=== PATIENT | male | born 1950 ===

== ENCOUNTER 2018-09-04 13:21 | Inpatient (IN) ==
--- NOTE | 2018-09-04 13:27 | DR.DIZZY ---
HPI Time seen Time Seen by Provider: 09/04/18 13:27 PCP Primary Care Physician: DR. IRVING HPI Comment HPI Comment: PATIENT IS 68YR OLD WHITE MALE WITH HISTORY OF HYPERTENSION HERE IN ED WITH HISTORY OF FALLING 2 TIMES TODAY. HE SAID HE LAY ON THE FLOOR FOR 2 DAYS. FAMILY MEMBERS SAID HE FELL TODAY. HE IS COMPLAINING OF LEFT HIP PAIN. NO FEVER OR DYSURIA. DENIES HEADACHE. Complaint Chief Complaint Doctor Comments: PATIENT FELL AND WAS ON THE FLOOR FOR 2 DAYS. GENERALIZE WEAKNESS, LEFT HIP PAIN. Chief Complaint:: PT TO ER WITH C/O FALLING TIMES 2 DAYS AGO AND HAVING SAGRARIO SANDERSON, Nurses Notes Reviewed Nurses Notes Review: Yes Source History Provided: Patient Mode of Arrival Mode of Arrival: EMS Timing Onset of Chief Complaint: 09/02/18 Came on: Suddenly Duration Duration: Constant Duration: Days Location of Weakness Weakness Location: Generalized Context Onset: At rest History of: None Stroke Symptoms: Numbness of limbs Severity Severity: Normal activity level Modifying factors Worsens: Change in Position Associated signs and symptoms Associated Signs and Symptoms: Weak PMH PMH Past Medical History: Yes Past Medical History: Hypertension Past Surgical History: Yes Surgical History: Unknown Family History History of Family Medical Conditions: No Social History Does patient currently use any type of tobacco product: No Have you used tobacco products in the last 12 months: No Type of Tobacco Use: None Does any household member use tobacco: No Alcohol Use: None Do you use any recreational Drugs:: No Lives With: Family Lives Where: Home infectious screening In the last 2 months have you had wt loss of >10#?: NO Have you had fever, night sweats or hemotysis?: No Have you traveled outside the country in the last 6 months?: No Isolation: Standard ROS Review of Systems Constitutional: Weakness and Fatigue; negative Chills and Fever Eyes: No Symptoms Reported; negative Eye Pain, Tearing and Discharge ENTM: negative Ear Pain, Nose Discharge, Nose Congestion and Throat Pain Respiratoy: Non-Productive Cough, Short of Breath and Wheezing; negative Hemoptysis Cardiovascular: Edema; negative Chest Pain and Palpitations Gastrointestinal/Abdominal: negative Abdominal Pain, Constipation, Diarrhea, Nausea and Vomiting Genitourinary: negative Dysuria, Frequency and Hematuria Neurological: Weakness and Dizziness; negative Headache and Seizure Musculoskeletal: Back Pain, Joint Pain, Joint Swelling and Muscle Pain Integumentary: Dryness; negative Rash, Bruises and Juandice Hematologic/Lymphatic: Easy Bleeding and Easy Bruising; negative Swollen Glands Endocrine: negative Increased Thirst, Increased Urine and Decreased Appetite Psychiatric: No Symptoms Reported All Other Systems: Reviewed and Negative PE Vital Signs Vitals: Temperature 98.2 F Pulse Rate [Left Radial] 97 Pulse Rate 116 Respiratory Rate 20 Blood Pressure [Right Arm] 93/53 Blood Pressure 135/86 O2 Sat by Pulse Oximetry 99 General Limitations: No Limitations General Appearance: Alert and In Distress; negative In No Apparent Distress Eyes Eye exam: PERRL; negative EOMI, Scleral Icterus and Conjunctival Injection Pupils: Regular, Round: Bilateral and Reactive: Bilateral Sclera/Conjunctival: Normal Inspection: Bilateral ENT ENT Exam: Normal Exam, Normal Oropharynx, Normal External Ear Exam, Mucous Membranes Moist and TM's Normal Bilaterally Neck Neck Exam: Normal Inspection, Full ROM and Trachea Midline; negative Tenderness, Meningismus and Lymphadenopathy Respiratory Respiratory Exam: Normal Lung Sounds Bilat; negative Accessory Muscle Use, Chest Wall Tenderness and Respiratory Distress Respiratory Exam: Bilateral: Wheezing and Bilateral: Rhonchi and Lower: Wheezing and Lower: Rhonchi Cardiovascular Cardiovascular Exam: Regular Rate and Normal Rhythm; negative Systolic Murmur, Diastolic Murmur, Rubs and Gallop Abdominal Exam Abdominal Exam: Normal Inspection, Normal Bowel Sounds and Soft; negative Tenderness, Organomegaly and Mass Rectal Rectal Exam: Deferred Extremeties Extremities Exam: Normal Capillary Refill and Edema; negative Tenderness and Calf Tenderness Back Back Exam: Paraspinal Tenderness; negative Tenderness and Vertebral Tenderness Neurologic Neurological Exam: Alert and Oriented X3; negative CN II-XII Intact and Motor Sensory Deficit Patient Oriented To: Person, Place and Time Speech: Fluid Speech Cranial Nerve Exam: EOM Function (II, III, IV, ): Normal, Facial Sensation (V): Normal, Facial Palsy (VII): Normal, Gag reflex (XI): Normal, Spinal Accessory Function (XI): Normal and Tongue Deviation: Normal Motor Strength - LUE: 5/5 Motor Strength - RUE: 5/5 Motor Strength - LLE: 5/5 Motor Strength - RLE: 5/5 Upper Motor Neuron Exam: Babinski Sign: Normal DTR: brachioradialis (L): 2+, brachioradialis (R): 2+, Patellar (L): 2+ and patellar (R): 2+ Psychiatric Psychiatric Exam: Normal Affect and Normal Mood Skin Skin Exam: Dry MDM Additional Information Obtained Additional Information Obtained From: Family Differential Diagnosis Differential Diagnosis: Anemia, CVA, Dehydration, Dysrhythmia, Electrolyte disorder, Hypoglycemia, Myocardial infarction, Pulmonary embolus, TIA and Central Vertigo COURSE Treatment Treatment: SEE ORDERS. Education/Counseling Education/Counseling: Patient and Family Educated On: Diagnosis ROR Labs Reviewed Laboratory Results Reviewed?: Yes Result Diagrams: 09/05/18 07:54 09/05/18 07:00 Laboratory: 09/04/18 17:24 Urine,Clean Catch Urine Culture - Preliminary WBC 17.5 X10^3/uL (3.6-10.0) H 09/05/18 07:54 RBC 3.30 X10^6/uL (4.7-6.0) L 09/05/18 07:54 Hgb 11.1 g/dL (13.5-18.0) L 09/05/18 07:54 Hct 33.1 % (42.0-54.0) L 09/05/18 07:54 MCV 100.2 fL (80.0-100.0) H 09/05/18 07:54 MCH 33.6 pg (27.0-34.0) 09/05/18 07:54 MCHC 33.5 g/dL (33.0-35.0) 09/05/18 07:54 RDW 13.3 % (11.6-16.5) 09/05/18 07:54 Plt Count 274 X10^3/uL (150.0-450.0) 09/05/18 07:54 Plt Count Comment Adequate (ADEQUATE) 09/05/18 07:54 MPV 7.7 fL (7.4-11.0) 09/05/18 07:54 Neut % (Auto) 92.2 % (42.0-75.0) H 09/05/18 07:54 Lymph % (Auto) 3.4 % (21.0-51.0) L 09/05/18 07:54 Sherman % (Auto) 4.2 % (0.0-13.0) 09/05/18 07:54 Eos % (Auto) 0.1 % (0.9-2.9) L 09/05/18 07:54 Baso % (Auto) 0.1 % (0.2-1.0) L 09/05/18 07:54 Neut # (Auto) 16.1 x10^3/uL (2.2-4.8) H 09/05/18 07:54 Lymph # (Auto) 0.6 X10^3/uL (1.3-2.9) L 09/05/18 07:54 Sherman # (Auto) 0.7 x10^3/uL (0.3-0.8) 09/05/18 07:54 Eos # (Auto) 0.0 x10^3/uL (0.0-0.2) 09/05/18 07:54 Baso # (Auto) 0.0 X10^3/uL (0.0-0.1) 09/05/18 07:54 Absolute Nucleated RBC 0.0 /100WBC 09/05/18 07:54 Total Counted 100 09/05/18 07:54 Neutrophils % (Manual) 93 % (39-76) H 09/05/18 07:54 Lymphocytes % (Manual) 3 % (13-43) L 09/05/18 07:54 Monocytes % (Manual) 4 % (4-9) 09/05/18 07:54 Plt Morphology Comment Normal (NORMAL) 09/05/18 07:54 RBC Morphology Normal (NORMAL) 09/05/18 07:54 Sodium 138 mmol/L (136-145) 09/05/18 07:00 Corrected Sodium TNP 09/05/18 07:00 Potassium 4.8 mmol/L (3.5-5.1) 09/05/18 07:00 Chloride 106 mmol/L (98-107) 09/05/18 07:00 Carbon Dioxide 23.2 mmol/L (21-32) 09/05/18 07:00 BUN 29 mg/dL (7-18) H 09/05/18 07:00 Creatinine 1.80 mg/dL (0.70-1.30) H 09/05/18 07:00 Est GFR (MDRD) Af Amer 49 (>60) L 09/05/18 07:00 Est GFR (MDRD) Non-Af 40 (>60) L 09/05/18 07:00 Glucose 76 mg/dL (65-99) 09/05/18 07:00 Lactic Acid 0.8 mmol/L (0.4-2.0) 09/04/18 16:36 Calcium 8.1 mg/dL (8.5-10.1) L 09/05/18 07:00 Corrected Calcium 10.0 mg/dL (8.5-10.1) 09/05/18 07:00 Magnesium 1.1 mg/dL (1.7-2.9) L 09/05/18 07:00 Total Bilirubin 0.70 mg/dL (0.2-1.0) 09/05/18 07:00 AST 57 Units/L (15-37) H 09/05/18 07:00 ALT 35 Units/L (12-78) 09/05/18 07:00 Alkaline Phosphatase 99 Units/L (46-116) 09/05/18 07:00 Creatine Kinase 321 Units/L (39-308) H 09/05/18 07:00 CK-MB (CK-2) 1.2 ng/mL (0-4.0) 09/05/18 07:00 CK/CKMB % Calc 0.4 % (<4) 09/05/18 07:00 Troponin I < 0.02 ng/mL (0-1.5) 09/05/18 07:00 Total Protein 4.7 g/dL (6.4-8.2) L 09/05/18 07:00 Albumin 1.6 g/dL (3.4-5.0) L 09/05/18 07:00 Globulin 3.1 g/dL (2.5-4.5) 09/05/18 07:00 Albumin/Globulin Ratio 0.5 Ratio (1.1-2.1) L 09/05/18 07:00 Triglycerides 185 mg/dL (0-150) H 09/05/18 07:00 Cholesterol 83 mg/dL (0-200) 09/05/18 07:00 LDL Cholesterol, Calc 37 mg/dL (0-100) 09/05/18 07:00 HDL Cholesterol 9 mg/dL (40-60) L 09/05/18 07:00 Cholesterol/HDL Ratio 9.2 (0.0-5.0) H 09/05/18 07:00 Specimen Type Clean catch urine 09/04/18 17:24 Urine Color Dark yellow (YELLOW) 09/04/18 17:24 Urine Appearance Cloudy (CLEAR) 09/04/18 17:24 Urine pH 6.0 (5.0 - 8.0) 09/04/18 17:24 Ur Specific [place] 1.010 (1.000-1.030) 09/04/18 17:24 Urine Protein 2+ (NEGATIVE) 09/04/18 17:24 Urine Glucose (UA) Negative (NEGATIVE) 09/04/18 17:24 Urine Ketones 2+ (NEGATIVE) 09/04/18 17:24 Urine Occult Blood 5+ (NEGATIVE) 09/04/18 17:24 Urine Nitrite Positive (NEGATIVE) 09/04/18 17:24 Urine Bilirubin Negative (NEGATIVE) 09/04/18 17:24 Urine Urobilinogen 1+ (NORMAL) 09/04/18 17:24 Ur Leukocyte Esterase 2+ (NEGATIVE) 09/04/18 17:24 Urine RBC 3-5 /HPF (NONE SEEN) 09/04/18 17:24 Urine WBC Tntc /HPF (NONE SEEN) 09/04/18 17:24 Ur Squamous Epith Cells Negative /HPF (NEGATIVE) 09/04/18 17:24 Urine Bacteria 4+ /HPF (NEGATIVE) 09/04/18 17:24 Ur Culture Indicated? Yes/culture set up 09/04/18 17:24 XRAY XRAY Interpreted by: Radiologist XRAY Findings: REPORT ON THIS RECORD DISCUSS WITH PATIENT AND EKG Rate: 109 [place]: LAD Rhythm: ST Block: None Hypertrophy: None ST: Nonsp Diagnosis Discharge Problem: UTI (urinary tract infection) with pyuria, Generalized weakness, Acute pain of left hip Leukocytosis Qualifiers: Leukocytosis type: unspecified Qualified Code(s): D72.829 - Elevated white blood cell count, unspecified Fall Qualifiers: Encounter type: initial encounter Qualified Code(s): W19.XXXA - Unspecified fall, initial encounter Instructions Instructions: Steps to Quit Smoking, [id number] Leukocytosis Urinary Tract Infection, Adult, [id number] Weakness Forms: Patient Portal
[2018-09-04] MEDS ORDERED: NS 1000 ML 1,000 ML ONE (13:48)
[2018-09-04] MEDS: NS 1000 ML 1,000 ML IV SCH (13:58)
--- NOTE | 2018-09-04 14:49 | RAD ---
HISTORY: Multiple falls Study: Chest AP portable Comparison: None available Findings: The heart is enlarged. No congestive heart failure is noted. The hernán are normal. The lungs are hypo inflated but clear. There is widening of the upper mediastinum with rightward deviation of the upper trachea. This could be due to thyromegaly however other upper mediastinal masses cannot be excluded. Chest CT with contrast would be of further diagnostic value. The visualized bony thorax appears intact. There is a spinal cord stimulator at the lower thoracic level. IMPRESSION: Moderate cardiomegaly without congestive heart failure Lungs hypo inflated but clear Widened upper mediastinum with rightward tracheal deviation possibly due to thyromegaly however chest CT with contrast should be considered for further evaluation. Reported By:
--- NOTE | 2018-09-04 14:50 | CT ---
HISTORY: Fall Study: CT of the head Comparison: None Technique: Serial axial images were obtained from the skull base to the vertex without infusion of IV contrast. Coronal sagittal reformatted images were also submitted. Findings: No definite evidence of acute intracranial hemorrhage is appreciated. The ventricles, sulci, and cisterns demonstrate an appearance consistent with a mild degree of generalized atrophy. Subtle patchy areas of decreased attenuation within the periventricular, subcortical, and subinsular white matter suggest changes of chronic small vessel ischemic disease. Soft tissue swelling/hematoma are seen overlying the occipital calvarium near the vertex. If symptoms or clinical concern persist recommend continued follow-up for further evaluation. IMPRESSION: No evidence of acute intracranial abnormality is appreciated. Mild generalized atrophy with findings consistent with changes of chronic small vessel ischemic disease. Soft tissue swelling/hematoma overlying the occipital calvarium. Correlate clinically. Reported By:
--- NOTE | 2018-09-04 15:22 | RAD ---
History: Fall Exam: Left hip series Comparison: None Technique: AP pelvis and frog-leg view left hip. Findings: There is mild joint space narrowing in both hips. No fracture or dislocation is seen. The pelvis is intact. Postop changes are seen along the lower lumbar spine with a TENS unit in place inferiorly. The pelvis is intact. IMPRESSION: Mild joint space narrowing in both hips and postop changes along the lower lumbar spine with no acute abnormality seen. Reported By:
[2018-09-04 16:50] LABS: BASOPHILS % (AUTO) 0.3 % (0.2-1.0); EOSINOPHILS % (AUTO) 0.1 % (0.9-2.9); HEMATOCRIT 31.4 % (42.0-54.0); HEMOGLOBIN 10.5 g/dL (13.5-18.0); LYMPHOCYTES # (AUTO) 0.8 X10^3/uL (1.3-2.9); LYMPHOCYTES % (AUTO) 4.6 % (21.0-51.0); MEAN CORPUSCULAR HEMOGLOBIN 33.4 pg (27.0-34.0); MEAN CORPUSCULAR HGB CONC 33.4 g/dL (33.0-35.0); MEAN PLATELET VOLUME 7.3 fL (7.4-11.0); MONOCYTES # (AUTO) 1.1 x10^3/uL (0.3-0.8); MONOCYTES % (AUTO) 6.1 % (0.0-13.0); NEUTROPHILS # (AUTO) 15.8 x10^3/uL (2.2-4.8); NEUTROPHILS % (AUTO) 88.9 % (42.0-75.0); PLATELET COUNT 208 X10^3/uL (150.0-450.0); RED BLOOD COUNT 3.14 X10^6/uL (4.7-6.0); RED CELL DISTRIBUTION WIDTH 12.9 % (11.6-16.5); WHITE BLOOD COUNT 17.8 X10^3/uL (3.6-10.0)
[2018-09-04 17:08] LABS: LACTIC ACID 0.8 mmol/L (0.4-2.0)
[2018-09-04 17:21] LABS: BLOOD UREA NITROGEN 31 mg/dL (7-18); CALCIUM 8.6 mg/dL (8.5-10.1); CARBON DIOXIDE 22.5 mmol/L (21-32); CHLORIDE 103 mmol/L (98-107); SODIUM 136 mmol/L (136-145); TROPONIN I < 0.02 ng/mL (0-1.5); eGFR NON BLACK RACES 43 (>60)
[2018-09-04 17:33] LABS: ALANINE AMINOTRANSFERASE 39 Units/L (12-78); ALBUMIN 1.7 g/dL (3.4-5.0); ALKALINE PHOSPHATASE 108 Units/L (46-116); ASPARTATE AMINO TRANSFERASE 114 Units/L (15-37); COR CA(FOR HYPOALB) 10.4 mg/dL (8.5-10.1); TOTAL PROTEIN 4.7 g/dL (6.4-8.2)
[2018-09-04 17:34] LABS: BILIRUBIN,URINE NEGATIVE (NEGATIVE); BLOOD/HEMOGLOBIN,URINE 5+ (NEGATIVE); GLUCOSE, URINE NEGATIVE (NEGATIVE); KETONES,URINE 2+ (NEGATIVE); LEUKOCYTE ESTERASE ,URINE 2+ (NEGATIVE); NITRITES,URINE POSITIVE (NEGATIVE); PROTEIN,URINE 2+ (NEGATIVE); UROBILINOGEN,URINE 1+ (NORMAL)
[2018-09-04 17:43] LABS: APPEARANCE,URINE CLOUDY (CLEAR); BACTERIA,URINE 4+ /HPF (NEGATIVE); COLOR,URINE DARK YELLOW (YELLOW); SQUAMOUS EPITHELIAL CELL,UR NEGATIVE /HPF (NEGATIVE)
[2018-09-04 17:59] LABS: CKMB % 0.7 % (<4); CREATINE KINASE 1388 Units/L (39-308); CREATINE KINASE MB 9.1 ng/mL (0-4.0)
[2018-09-04] MEDS ORDERED: ROCEPHIN VIAL 1 GRAM ONE (18:14)
[2018-09-04] MEDS ORDERED: ROCEPHIN VIAL 1 GRAM IVP ONE (18:18)
[2018-09-04] MEDS ORDERED: VITAMIN D (1.25MG) PO SCH (19:14)
[2018-09-04] MEDS: DESYREL PO SCH (21:15)
[2018-09-04] MEDS: FLOMAX PO SCH (21:15)
[2018-09-04] MEDS: NEURONTIN CAP 300 MG PO SCH (21:16)
[2018-09-04] MEDS: CELEBREX PO SCH (21:16)
[2018-09-04] MEDS: NICOTINE PATCH TD SCH (21:16)
[2018-09-04] MEDS: ANTIVERT TAB 25 MG PO SCH (21:16)
[2018-09-04] MEDS: CHECK PATCH XX SCH (21:23)
[2018-09-05 01:04] LABS: CKMB % 0.3 % (<4); CREATINE KINASE 592 Units/L (39-308); CREATINE KINASE MB 1.9 ng/mL (0-4.0); TROPONIN I < 0.02 ng/mL (0-1.5)
[2018-09-05] MEDS: NS 1000 ML 1,000 ML IV SCH ×3 (03:12→19:50)
[2018-09-05 07:20] LABS: ALANINE AMINOTRANSFERASE 35 Units/L (12-78); ALBUMIN 1.6 g/dL (3.4-5.0); ALKALINE PHOSPHATASE 99 Units/L (46-116); ASPARTATE AMINO TRANSFERASE 57 Units/L (15-37); BLOOD UREA NITROGEN 29 mg/dL (7-18); CALCIUM 8.1 mg/dL (8.5-10.1); CARBON DIOXIDE 23.2 mmol/L (21-32); CHLORIDE 106 mmol/L (98-107); CHOL/HDL RATIO 9.2 (0.0-5.0); CHOLESTEROL 83 mg/dL (0-200); HDL CHOLESTEROL 9 mg/dL (40-60); MAGNESIUM 1.1 mg/dL (1.7-2.9); SODIUM 138 mmol/L (136-145); TOTAL PROTEIN 4.7 g/dL (6.4-8.2); TRIGLYCERIDES 185 mg/dL (0-150); eGFR NON BLACK RACES 40 (>60)
[2018-09-05 07:50] LABS: CKMB % 0.4 % (<4); CREATINE KINASE 321 Units/L (39-308); CREATINE KINASE MB 1.2 ng/mL (0-4.0); TROPONIN I < 0.02 ng/mL (0-1.5)
[2018-09-05 08:01] LABS: BASOPHILS % (AUTO) 0.1 % (0.2-1.0); EOSINOPHILS % (AUTO) 0.1 % (0.9-2.9); HEMATOCRIT 33.1 % (42.0-54.0); HEMOGLOBIN 11.1 g/dL (13.5-18.0); LYMPHOCYTES # (AUTO) 0.6 X10^3/uL (1.3-2.9); LYMPHOCYTES % (AUTO) 3.4 % (21.0-51.0); MEAN CORPUSCULAR HEMOGLOBIN 33.6 pg (27.0-34.0); MEAN CORPUSCULAR HGB CONC 33.5 g/dL (33.0-35.0); MEAN CORPUSCULAR VOLUME 100.2 fL (80.0-100.0); MEAN PLATELET VOLUME 7.7 fL (7.4-11.0); MONOCYTES # (AUTO) 0.7 x10^3/uL (0.3-0.8); MONOCYTES % (AUTO) 4.2 % (0.0-13.0); NEUTROPHILS # (AUTO) 16.1 x10^3/uL (2.2-4.8); NEUTROPHILS % (AUTO) 92.2 % (42.0-75.0); PLATELET COUNT 274 X10^3/uL (150.0-450.0); RED CELL DISTRIBUTION WIDTH 13.3 % (11.6-16.5); WHITE BLOOD COUNT 17.5 X10^3/uL (3.6-10.0)
[2018-09-05 08:19] LABS: PLATELET MORPHOLOGY COMMENT NORMAL (NORMAL)
[2018-09-05] MEDS: CHECK PATCH XX SCH ×2 (08:33→21:42)
[2018-09-05] MEDS: NEURONTIN CAP 300 MG PO SCH ×2 (08:33→21:41)
[2018-09-05] MEDS: SINGULAIR TAB 10 MG PO SCH (08:34)
[2018-09-05] MEDS: CELEBREX PO SCH ×2 (08:34→21:41)
[2018-09-05] MEDS: NICOTINE PATCH TD SCH (08:34)
[2018-09-05] MEDS: MAG-OX TAB PO SCH (08:34)
[2018-09-05] MEDS: PriLOSEC PO SCH (08:34)
[2018-09-05] MEDS: CYMBALTA PO SCH (08:37)
[2018-09-05] MEDS ORDERED: PHARMACY CONSULT - DOSE _____ XX SCH (09:00)
[2018-09-05] MEDS ORDERED: ROCEPHIN VIAL 1 GRAM IVP SCH (09:00)
[2018-09-05] MEDS: CIPRO IV 400 MG PREMIX* 400 MG/200 ML IV.SOLN. IV SCH ×2 (11:09→21:42)
[2018-09-05] MEDS ORDERED: NS 100 ML IV + SPIKE MINIBAG* 100 ML ONE (11:31)
[2018-09-05] MEDS: LOVENOX INJ 40 MG SYR SC SCH (11:35)
[2018-09-05] MEDS: FORTAZ or TAZICEF VIAL INJ IVP SCH ×3 (11:36→21:41)
[2018-09-05 13:51] VITALS: BMI 33.9
--- NOTE | 2018-09-05 15:47 | US ---
Ultrasound scrotum Indication: Testicular pain and swelling Technique: Dynamic grayscale and Doppler imaging through the scrotum Comparison: No recent similar prior. Findings: The right testis measures 3.8 x 2.6 x 2.9 cm. Epididymis measures 1 cm maximally. No hydrocele identified. Color Doppler flow is symmetric to the testicles. There is left small hydrocele with the left testis measuring 3.1 x 2.2 x 2.5 cm. The left epididymis measures 9 mm maximally. In the posterior inferior left testis there is hypoechoic area, within the testicle itself measuring 6 x 5 x 5 mm. Extratesticular hypodense area is also noted, with peripheral flow seen. This area measures 4.2 x 1.0 x 0.5 cm. Impression: 1. Intra testicular hypoechoic lesion. Testicular cancer should be excluded. Urology follow-up will be needed. 2. Extratesticular hypoechoic area could represent local regional spread of the primary lesion. Lymphoma is possible as well. Infectious etiologies not entirely excluded. Urology follow-up recommended. Reported By:
--- NOTE | 2018-09-05 16:51 | DR.H&P ---
H&P - History & Physical for Day of: H&P Date: 09/04/18 - Chief Complaint Chief Complaint: WEAKNESS, DIZZINESS, FALLS, LEFT HIP PAIN - History of Present Illness History of Present Illness: IS A 68 YEAR OLD PATIENT OF OURS WHO PRESENTED TO THE ER WITH COMPLAINTS OF FREQUENT FALLS, GENERALIZED WEAKNESS, DIZZINESS, AND LEFT HIP PAIN. PATIENT REPORTED THAT HE FELL AT HOME AND HAS BEEN ABLE TO GET ANY HELP FOR THE PAST TWO DAYS. HE HAS A MEDICAL HISTORY OF HYPERTENSION. ON ARRIVAL, VITALS WERE 98.0-97-18-99%-98/67. LABS WERE OBTAINED. ABNORMAL LAB VALUES INCLUDE THE FOLLOWING: WBC 17.8, RBC 3.14, HGB 10.5, HCT 31.4, BUN 31, CREATININE 1.70, AST 114, CREATINE KINASE 1388, CK-MB 9.1, TOTAL PROTEIN 4.7, ALBUMIN 1.7. A URINALYSIS WAS OBTAINED AND REVEALED: WBC TTC, RBC 3-5, LEUKOCYTES 1+, BACTERIA 4+, NITRITE POSITIVE. URINE AND BLOOD CULTURES PENDING. A CHEST XRAY WAS OBTAINED AND REVEALED: Moderate cardiomegaly without congestive heart failure. Lungs hypo inflated but clear. Widened upper mediastinum with rightward tracheal deviation possibly due to thyromegaly however chest CT with contrast should be considered for further evaluation. A LEFT HIP XRAY WAS OBTAINED AND REVEALED: Mild joint space narrowing in both hips and postop changes along the lower lumbar spine with no acute abnormality seen. A BRAIN CT WAS OBTAINED AND REVEALED: No evidence of acute intracranial abnormality is appreciated. Mild generalized atrophy with findings consistent with changes of chronic small vessel ischemic disease. Soft tissue swelling/hematoma overlying the occipital calvarium. Correlate clinically. HE WAS ADMITTED TO THE ER FOR FURTHER EVALUATION AND TREATMENT OF UTI, LEUKOCYTOSIS, GENERALIZED WEAKNESS, AND LEFT HIP PAIN. HE WAS STARTED ON ROCEPHIN 1G IV DAILY, NORMAL SALINE AT 100ML/HR, AND HOME MEDICATIONS WERE RESUMED. WE PLAN TO FOLLOW UP WITH AM LABS AND CONTINUE TO MONITOR. - Past Medical History Past Medical History: Hypertension - Past Surgical History Surgical History: Unknown - Social History Does patient currently use any type of tobacco product: No Have you used tobacco products in the last 12 months: No Type of Tobacco Use: None Does any household member use tobacco: No Alcohol Use: None Drug Use: Marijuana - Medications Home Medications: No Known Drug Allergies Allergy (Verified 09/04/18 13:24) CONTINUE taking the following medications celecoxib 200 mg PO BID 09/04/18 [History] duloxetine 60 mg PO DAILY 09/04/18 [History] ergocalciferol (vitamin D2) 50,000 unit PO WEEKLY 09/04/18 [History] furosemide 40 mg PO PRN PRN 09/04/18 [History] gabapentin 300 mg PO BID 09/04/18 [History] hydrocodone-acetaminophen 1 tab PO QID PRN 09/04/18 [History] lisinopril 20 mg PO DAILY 09/04/18 [History] magnesium 400 mg PO DAILY 09/04/18 [History] meclizine 25 mg PO HS 09/04/18 [History] montelukast 10 mg PO DAILY 09/04/18 [History] omeprazole 40 mg PO DAILY 09/04/18 [History] oxycodone 30 mg PO TID PRN 09/04/18 [History] phentermine [Adipex-P] 37.5 mg PO DAILY 09/04/18 [History] potassium chloride 20 meq PO DAILY 09/04/18 [History] tamsulosin 0.4 mg PO HS 09/04/18 [History] trazodone 200 mg PO HS 09/04/18 [History] triamterene-hydrochlorothiazid 1 cap PO DAILY 09/04/18 [History] - Review of Systems Constitutional: Weakness Eyes: No Symptoms Reported ENT: No Symptoms Reported Respiratory: No Symptoms Reported Cardiovascular: No Symptoms Reported Gastrointestinal: Abdominal Pain Genitourinary: Other (PENILE DISCHARGE) Musculoskeletal: See HPI, Other (LEFT HIP PAIN ) Skin: No Symptoms Reported Neurological: Weakness - Physical Exam Vital Signs: Temperature 98 F Pulse Rate [Left Radial] 102 Pulse Rate 116 Respiratory Rate 30 Blood Pressure [Right Arm] 80/56 Blood Pressure 135/86 O2 Sat by Pulse Oximetry 96 Oriented: Normal Eyes: Normal Ear: Normal Nose: Normal Throat: Normal Respiratory: Diminished Throughout Cardiovascular: Normal. negative: S3, S4, Murmur : Normal Auscultation: Bowel Sounds: Normal Palpation: Normal Tenderness: Suprapubic, Mild. negative: Rebound, Guarding, Rigidity Skin: Normal Musculoskeletal: Left, Hip, Tender Psychiatric: Normal Mood Description: Calm Affect: Normal Speech Pattern: Clear - Assessment/Plan (1) UTI (urinary tract infection) with pyuria Status: Acute Plan: ADMIT, IV FLUIDS, IV ROCEPHIN, CONTINUE TO MONITOR (2) Leukocytosis Qualifiers: Leukocytosis type: unspecified Qualified Code(s): D72.829 - Elevated white blood cell count, unspecified Status: Acute (3) Generalized weakness Status: Acute (4) Acute pain of left hip Status: Resolved - Allergies Allergies/Adverse Reactions: Allergies Allergy/AdvReac Type Severity Reaction Status Date / Time No Known Drug Allergies Allergy Verified 09/04/18 13:24
[2018-09-05] MEDS: MEDROL DOSEPAK 4 MG PER TAB PO SCH ×2 (17:46→21:42)
[2018-09-05] MEDS: ROXICODONE TAB 15 MG PO SCH ×2 (17:47→22:22)
[2018-09-05] MEDS: COLACE CAP 100 MG PO SCH (21:41)
[2018-09-05] MEDS: DESYREL PO SCH (21:41)
[2018-09-05] MEDS: ANTIVERT TAB 25 MG PO SCH (21:41)
[2018-09-05] MEDS: FLOMAX PO SCH (21:41)
[2018-09-05] MEDS: MILK OF MAGNESIA PO SCH (21:43)
[2018-09-06] MEDS: NS 1000 ML 1,000 ML IV SCH ×3 (05:48→18:17)
[2018-09-06] MEDS: FORTAZ or TAZICEF VIAL INJ IVP SCH ×3 (05:49→20:59)
[2018-09-06] MEDS: ROXICODONE TAB 15 MG PO SCH ×4 (05:49→20:59)
[2018-09-06 05:52] LABS: BASOPHILS % (AUTO) 0.1 % (0.2-1.0); HEMOGLOBIN 9.9 g/dL (13.5-18.0); LYMPHOCYTES # (AUTO) 0.3 X10^3/uL (1.3-2.9); LYMPHOCYTES % (AUTO) 2.2 % (21.0-51.0); MEAN CORPUSCULAR HEMOGLOBIN 33.8 pg (27.0-34.0); MEAN CORPUSCULAR VOLUME 102.7 fL (80.0-100.0); MEAN PLATELET VOLUME 7.8 fL (7.4-11.0); MONOCYTES # (AUTO) 0.4 x10^3/uL (0.3-0.8); MONOCYTES % (AUTO) 2.6 % (0.0-13.0); NEUTROPHILS # (AUTO) 13.6 x10^3/uL (2.2-4.8); NEUTROPHILS % (AUTO) 95.1 % (42.0-75.0); PLATELET COUNT 285 X10^3/uL (150.0-450.0); RED BLOOD COUNT 2.92 X10^6/uL (4.7-6.0); RED CELL DISTRIBUTION WIDTH 13.4 % (11.6-16.5); WHITE BLOOD COUNT 14.3 X10^3/uL (3.6-10.0)
[2018-09-06 06:02] LABS: ALBUMIN 1.6 g/dL (3.4-5.0); CARBON DIOXIDE 24.5 mmol/L (21-32); COR CA(FOR HYPOALB) 9.9 mg/dL (8.5-10.1); CREATININE 1.78 mg/dL (0.70-1.30); TOTAL PROTEIN 4.8 g/dL (6.4-8.2)
[2018-09-06 06:09] LABS: TOTAL PSA 0.81 ng/mL (0.13-4.0)
[2018-09-06 06:35] LABS: PLATELET MORPHOLOGY COMMENT NORMAL (NORMAL)
--- NOTE | 2018-09-06 08:16 | PCM.PROG ---
Progress Note - Progress Note for Day of Date of Exam: 09/05/18 - Subjective Subjective: WAS ADMITTED FOR UTI, LEUKOCYTOSIS, GENERALIZED WEAKNESS, AND LEFT HIP PAIN. TODAY, HE IS ALERT AND ORIENTED, SITTING UP IN CHAIR ON MORNING ROUNDS. HE IS NOTED WITH COMPLAINTS OF LOWER ABDOMINAL PAIN AND SCROTAL PAIN. HE REPORTS THAT HE HAS A PURULENT DISCHARGE FROM PENIS. ON EXAMINATION, HEART IS REGULAR IN RATE AND RHYTHM. BILATERAL LUNGS ARE NOTED WITH DIMINISHED LUNG SOUNDS THROUGHOUT. ABDOMEN IS ROUND, SOFT, AND NOTED WITH MILD SUPRAPUBIC TENDERNESS. HIS VITALS THIS MORNING ARE 99.8-107-20-92%RA-119/62. LABS WERE OBTAINED. ABNORMAL LAB VALUES INCLUDE THE FOLLOWING: WBC 17.5, RBC 3.30, HGB 11.1, HCT 33.1, BUN 29, CREATININE 1.80, CALCIUM 8.1, MAGNESIUM 1.1, AST 57, TOT AL PROTEIN 4.7, ALBUMIN 1.6, CREATINE KINASE 321, TRIGLYCERIDES 185, HDL 9. URINE AND BLOOD CULTURES ARE PENDING. TODAY, WE WILL OBTAIN A TESTICULAR ULTRASOUND. WE WILL DISCONTINUE THE ROCEPHIN AND START FORTAZ AND CIPRO. OTHERWISE, WE WILL FOLLOW UP WITH AM LABS AND CONTINUE TO MONITOR. - Past Medical Family Social History Past Med/Fam/Surg Hx: No changes since H&P Allergies: Allergies No Known Drug Allergies Allergy (Verified 09/04/18 13:24) - Review of Systems ROS: No change since H&P - Vital Signs and I&O's Vital Signs: Temperature 97.7 F Pulse Rate [Left Radial] 71 Pulse Rate 116 Respiratory Rate 18 Blood Pressure [Right Arm] 101/67 Blood Pressure 135/86 O2 Sat by Pulse Oximetry 95 Intake and Output: Intake & Output 09/03/18 09/04/18 09/05/18 09/06/18 11:59 11:59 11:59 11:59 Intake Total 140 / 140 2110 / 2110 Output Total 425 / 425 325 / 325 Balance -285 / -285 1785 / 1785 - Physical Exam Oriented: Normal Eyes: Normal Ear: Normal Nose: Normal Throat: Normal Cardiovascular: Normal. negative: S3, S4, Murmur : Other (SCROTAL PAIN, PENILE DISCHARGE) Auscultation: Bowel Sounds: Normal Palpation: Normal Tenderness: Suprapubic, Mild. negative: Rebound, Guarding, Rigidity Skin: Normal Musculoskeletal: Left, Hip, Tender Psychiatric: Normal Mood Description: Calm Affect: Normal Speech Pattern: Clear, Appropriate - Laboratory and Diagnostics Result Diagrams: 09/06/18 05:15 09/06/18 05:15 Labs: 09/04/18 17:24 Urine,Clean Catch Urine Culture - Preliminary Laboratory WBC 14.3 X10^3/uL (3.6-10.0) H 09/06/18 05:15 RBC 2.92 X10^6/uL (4.7-6.0) L 09/06/18 05:15 Hgb 9.9 g/dL (13.5-18.0) L 09/06/18 05:15 Hct 30.0 % (42.0-54.0) L 09/06/18 05:15 MCV 102.7 fL (80.0-100.0) H 09/06/18 05:15 MCH 33.8 pg (27.0-34.0) 09/06/18 05:15 MCHC 33.0 g/dL (33.0-35.0) 09/06/18 05:15 RDW 13.4 % (11.6-16.5) 09/06/18 05:15 Plt Count 285 X10^3/uL (150.0-450.0) 09/06/18 05:15 Plt Count Comment Adequate (ADEQUATE) 09/06/18 05:15 MPV 7.8 fL (7.4-11.0) 09/06/18 05:15 Neut % (Auto) 95.1 % (42.0-75.0) H 09/06/18 05:15 Lymph % (Auto) 2.2 % (21.0-51.0) L 09/06/18 05:15 [place] % (Auto) 2.6 % (0.0-13.0) 09/06/18 05:15 Eos % (Auto) 0.0 % (0.9-2.9) L 09/06/18 05:15 Baso % (Auto) 0.1 % (0.2-1.0) L 09/06/18 05:15 Neut # (Auto) 13.6 x10^3/uL (2.2-4.8) H 09/06/18 05:15 Lymph # (Auto) 0.3 X10^3/uL (1.3-2.9) L 09/06/18 05:15 [place] # (Auto) 0.4 x10^3/uL (0.3-0.8) 09/06/18 05:15 Eos # (Auto) 0.0 x10^3/uL (0.0-0.2) 09/06/18 05:15 Baso # (Auto) 0.0 X10^3/uL (0.0-0.1) 09/06/18 05:15 Absolute Nucleated RBC 0.0 /100WBC 09/06/18 05:15 Total Counted 100 09/06/18 05:15 Neutrophils % (Manual) 97 % (39-76) H 09/06/18 05:15 Lymphocytes % (Manual) 2 % (13-43) L 09/06/18 05:15 Monocytes % (Manual) 1 % (4-9) L 09/06/18 05:15 Plt Morphology Comment Normal (NORMAL) 09/06/18 05:15 RBC Morphology Normal (NORMAL) 09/06/18 05:15 Sodium 137 mmol/L (136-145) 09/06/18 05:15 Corrected Sodium 138 mmol/L (136-145) 09/06/18 05:15 Potassium 4.5 mmol/L (3.5-5.1) 09/06/18 05:15 Chloride 104 mmol/L (98-107) 09/06/18 05:15 Carbon Dioxide 24.5 mmol/L (21-32) 09/06/18 05:15 BUN 30 mg/dL (7-18) H 09/06/18 05:15 Creatinine 1.78 mg/dL (0.70-1.30) H 09/06/18 05:15 Est GFR (MDRD) Af Amer 49 (>60) L 09/06/18 05:15 Est GFR (MDRD) Non-Af 41 (>60) L 09/06/18 05:15 Glucose 132 mg/dL (65-99) H 09/06/18 05:15 Lactic Acid 0.8 mmol/L (0.4-2.0) 09/04/18 16:36 Calcium 8.0 mg/dL (8.5-10.1) L 09/06/18 05:15 Corrected Calcium 9.9 mg/dL (8.5-10.1) 09/06/18 05:15 Magnesium 1.1 mg/dL (1.7-2.9) L 09/05/18 07:00 Total Bilirubin 0.30 mg/dL (0.2-1.0) 09/06/18 05:15 AST 31 Units/L (15-37) 09/06/18 05:15 ALT 32 Units/L (12-78) 09/06/18 05:15 Alkaline Phosphatase 95 Units/L (46-116) 09/06/18 05:15 Creatine Kinase 321 Units/L (39-308) H 09/05/18 07:00 CK-MB (CK-2) 1.2 ng/mL (0-4.0) 09/05/18 07:00 CK/CKMB % Calc 0.4 % (<4) 09/05/18 07:00 Troponin I < 0.02 ng/mL (0-1.5) 09/05/18 07:00 Total Protein 4.8 g/dL (6.4-8.2) L 09/06/18 05:15 Albumin 1.6 g/dL (3.4-5.0) L 09/06/18 05:15 Globulin 3.2 g/dL (2.5-4.5) 09/06/18 05:15 Albumin/Globulin Ratio 0.5 Ratio (1.1-2.1) L 09/06/18 05:15 Triglycerides 185 mg/dL (0-150) H 09/05/18 07:00 Cholesterol 83 mg/dL (0-200) 09/05/18 07:00 LDL Cholesterol, Calc 37 mg/dL (0-100) 09/05/18 07:00 HDL Cholesterol 9 mg/dL (40-60) L 09/05/18 07:00 Cholesterol/HDL Ratio 9.2 (0.0-5.0) H 09/05/18 07:00 Total PSA 0.81 ng/mL (0.13-4.0) 09/06/18 05:15 Specimen Type Clean catch urine 09/04/18 17:24 Urine Color Dark yellow (YELLOW) 09/04/18 17:24 Urine Appearance Cloudy (CLEAR) 09/04/18 17:24 Urine pH 6.0 (5.0 - 8.0) 09/04/18 17:24 Ur Specific [place] 1.010 (1.000-1.030) 09/04/18 17:24 Urine Protein 2+ (NEGATIVE) 09/04/18 17:24 Urine Glucose (UA) Negative (NEGATIVE) 09/04/18 17:24 Urine Ketones 2+ (NEGATIVE) 09/04/18 17:24 Urine Occult Blood 5+ (NEGATIVE) 09/04/18 17:24 Urine Nitrite Positive (NEGATIVE) 09/04/18 17:24 Urine Bilirubin Negative (NEGATIVE) 09/04/18 17:24 Urine Urobilinogen 1+ (NORMAL) 09/04/18 17:24 Ur Leukocyte Esterase 2+ (NEGATIVE) 09/04/18 17:24 Urine RBC 3-5 /HPF (NONE SEEN) 09/04/18 17:24 Urine WBC Tntc /HPF (NONE SEEN) 09/04/18 17:24 Ur Squamous Epith Cells Negative /HPF (NEGATIVE) 09/04/18 17:24 Urine Bacteria 4+ /HPF (NEGATIVE) 09/04/18 17:24 Ur Culture Indicated? Yes/culture set up 09/04/18 17:24 - Plan (1) UTI (urinary tract infection) with pyuria Status: Acute Plan: ADMIT, IV FLUIDS, IV FORTAZ, IV CIPRO, CONTINUE TO MONITOR (2) Leukocytosis Status: Acute Qualifiers: Leukocytosis type: unspecified Qualified Code(s): D72.829 - Elevated white blood cell count, unspecified (3) Generalized weakness Status: Acute (4) Acute pain of left hip Status: Resolved (5) Testicular/scrotal pain Status: Acute Plan: OBTAIN TESTICULAR ULTRASOUND
[2018-09-06] MEDS: PriLOSEC PO SCH (08:46)
[2018-09-06] MEDS: CELEBREX PO SCH ×2 (08:47→21:11)
[2018-09-06] MEDS: NICOTINE PATCH TD SCH (08:47)
[2018-09-06] MEDS: SINGULAIR TAB 10 MG PO SCH (08:47)
[2018-09-06] MEDS: MAG-OX TAB PO SCH ×2 (08:47→22:00)
[2018-09-06] MEDS: NEURONTIN CAP 300 MG PO SCH ×2 (08:47→20:57)
[2018-09-06] MEDS: CIPRO IV 400 MG PREMIX* 400 MG/200 ML IV.SOLN. IV SCH ×2 (08:48→20:58)
[2018-09-06] MEDS: CHECK PATCH XX SCH ×2 (08:48→21:11)
[2018-09-06] MEDS: LOVENOX INJ 40 MG SYR SC SCH (08:49)
[2018-09-06] MEDS: MEDROL DOSEPAK 4 MG PER TAB PO SCH ×2 (08:49→20:57)
[2018-09-06] MEDS: MILK OF MAGNESIA PO SCH ×2 (08:50→20:57)
[2018-09-06] MEDS: CYMBALTA PO SCH (08:53)
--- NOTE | 2018-09-06 20:32 | PCM.PROG ---
Progress Note - Progress Note for Day of Date of Exam: 09/06/18 - Subjective Subjective: WAS ADMITTED FOR UTI, LEUKOCYTOSIS, GENERALIZED WEAKNESS, AND LEFT HIP PAIN. TODAY, HE IS ALERT AND ORIENTED, LYING IN BED ON MORNING ROUNDS. HE CONTINUES WITH COMPLAINTS OF LOWER ABDOMINAL PAIN AND SCROTAL PAIN. HE ALSO CONTINUES WITH PURULENT DISCHARGE FROM PENIS. ON EXAMINATION, HEART IS REGULAR IN RATE AND RHYTHM. BILATERAL LUNGS ARE NOTED WITH DIMINISHED LUNG SOUNDS THROUGHOUT. ABDOMEN IS ROUND, SOFT, AND NOTED WITH MILD SUPRAPUBIC TENDERNESS. HIS VITALS THIS MORNING ARE 97.8-80-20-93%RA-99/63. LABS WERE OBTAINED. ABNORMAL LAB VALUES INCLUDE THE FOLLOWING: WBC 14.3, RBC 2.92, HGB 9.9, HCT 30.0, BUN 30, CREATININE 1.78, GLUCOSE 132, CALCIUM 8.0, MAGNESIUM 1.2, TOTAL PROTEIN 4.8, ALUBMIN 1.6. URINE AND BLOOD CULTURES ARE PENDING. WE OBTAINED A TESTICULAR ULTRASOUND YESTERDAY. IT REVEALED: Intra testicular hypoechoic lesion. Testicular cancer should be excluded. Urology follow-up will be needed. Extratesticular hypoechoic area could represent local regional spread of the primary lesion. Lymphoma is possible as well. Infectious etiologies not entirely excluded. Urology follow-up recommended. HE IS CURRENTLY RECEIVING IV ANTIBIOTICS AND IV FLUIDS. TODAY, WE WILL OBTAIN A BETA HCG LEVEL AND A ALPHA FETOPROTEIN LEVEL. OTHERWISE, WE WILL FOLLOW UP WITH AM LABS AND CONTINUE TO MONITOR. - Past Medical Family Social History Past Med/Fam/Surg Hx: No changes since H&P Allergies: Allergies No Known Drug Allergies Allergy (Verified 09/04/18 13:24) - Review of Systems ROS: No change since H&P - Vital Signs and I&O's Vital Signs: Temperature 98.5 F Pulse Rate [Left Radial] 82 Pulse Rate 116 Respiratory Rate 18 Blood Pressure [Right Arm] 110/70 Blood Pressure 135/86 O2 Sat by Pulse Oximetry 97 Intake and Output: Intake & Output 09/04/18 09/05/18 09/06/18 09/07/18 11:59 11:59 11:59 11:59 Intake Total 140 / 140 2110 / 2110 2040 / 2040 Output Total 425 / 425 325 / 325 800 / 800 Balance -285 / -285 1785 / 1785 1240 / 1240 - Physical Exam Oriented: Normal Eyes: Normal Ear: Normal Nose: Normal Throat: Normal Respiratory: Generalized, Diminished Cardiovascular: Normal. negative: S3, S4, Murmur : Other (SCROTAL PAIN, PENILE DISCHARGE) Auscultation: Bowel Sounds: Normal Palpation: Normal Tenderness: Suprapubic, Mild. negative: Rebound, Guarding, Rigidity Skin: Normal Musculoskeletal: Left, Hip, Tender Psychiatric: Normal Mood Description: Calm Affect: Normal Speech Pattern: Clear, Appropriate - Laboratory and Diagnostics Result Diagrams: 09/06/18 05:15 09/06/18 05:15 Labs: 09/04/18 16:36 Blood Blood Culture - Preliminary 09/04/18 17:24 Urine,Clean Catch Urine Culture - Preliminary Laboratory WBC 14.3 X10^3/uL (3.6-10.0) H 09/06/18 05:15 RBC 2.92 X10^6/uL (4.7-6.0) L 09/06/18 05:15 Hgb 9.9 g/dL (13.5-18.0) L 09/06/18 05:15 Hct 30.0 % (42.0-54.0) L 09/06/18 05:15 MCV 102.7 fL (80.0-100.0) H 09/06/18 05:15 MCH 33.8 pg (27.0-34.0) 09/06/18 05:15 MCHC 33.0 g/dL (33.0-35.0) 09/06/18 05:15 RDW 13.4 % (11.6-16.5) 09/06/18 05:15 Plt Count 285 X10^3/uL (150.0-450.0) 09/06/18 05:15 Plt Count Comment Adequate (ADEQUATE) 09/06/18 05:15 MPV 7.8 fL (7.4-11.0) 09/06/18 05:15 Neut % (Auto) 95.1 % (42.0-75.0) H 09/06/18 05:15 Lymph % (Auto) 2.2 % (21.0-51.0) L 09/06/18 05:15 [place] % (Auto) 2.6 % (0.0-13.0) 09/06/18 05:15 Eos % (Auto) 0.0 % (0.9-2.9) L 09/06/18 05:15 Baso % (Auto) 0.1 % (0.2-1.0) L 09/06/18 05:15 Neut # (Auto) 13.6 x10^3/uL (2.2-4.8) H 09/06/18 05:15 Lymph # (Auto) 0.3 X10^3/uL (1.3-2.9) L 09/06/18 05:15 [place] # (Auto) 0.4 x10^3/uL (0.3-0.8) 09/06/18 05:15 Eos # (Auto) 0.0 x10^3/uL (0.0-0.2) 09/06/18 05:15 Baso # (Auto) 0.0 X10^3/uL (0.0-0.1) 09/06/18 05:15 Absolute Nucleated RBC 0.0 /100WBC 09/06/18 05:15 Total Counted 100 09/06/18 05:15 Neutrophils % (Manual) 97 % (39-76) H 09/06/18 05:15 Lymphocytes % (Manual) 2 % (13-43) L 09/06/18 05:15 Monocytes % (Manual) 1 % (4-9) L 09/06/18 05:15 Plt Morphology Comment Normal (NORMAL) 09/06/18 05:15 RBC Morphology Normal (NORMAL) 09/06/18 05:15 Sodium 137 mmol/L (136-145) 09/06/18 05:15 Corrected Sodium 138 mmol/L (136-145) 09/06/18 05:15 Potassium 4.5 mmol/L (3.5-5.1) 09/06/18 05:15 Chloride 104 mmol/L (98-107) 09/06/18 05:15 Carbon Dioxide 24.5 mmol/L (21-32) 09/06/18 05:15 BUN 30 mg/dL (7-18) H 09/06/18 05:15 Creatinine 1.78 mg/dL (0.70-1.30) H 09/06/18 05:15 Est GFR (MDRD) Af Amer 49 (>60) L 09/06/18 05:15 Est GFR (MDRD) Non-Af 41 (>60) L 09/06/18 05:15 Glucose 132 mg/dL (65-99) H 09/06/18 05:15 Lactic Acid 0.8 mmol/L (0.4-2.0) 09/04/18 16:36 Calcium 8.0 mg/dL (8.5-10.1) L 09/06/18 05:15 Corrected Calcium 9.9 mg/dL (8.5-10.1) 09/06/18 05:15 Magnesium 1.2 mg/dL (1.7-2.9) L 09/06/18 05:15 Total Bilirubin 0.30 mg/dL (0.2-1.0) 09/06/18 05:15 AST 31 Units/L (15-37) 09/06/18 05:15 ALT 32 Units/L (12-78) 09/06/18 05:15 Alkaline Phosphatase 95 Units/L (46-116) 09/06/18 05:15 Creatine Kinase 321 Units/L (39-308) H 09/05/18 07:00 CK-MB (CK-2) 1.2 ng/mL (0-4.0) 09/05/18 07:00 CK/CKMB % Calc 0.4 % (<4) 09/05/18 07:00 Troponin I < 0.02 ng/mL (0-1.5) 09/05/18 07:00 Total Protein 4.8 g/dL (6.4-8.2) L 09/06/18 05:15 Albumin 1.6 g/dL (3.4-5.0) L 09/06/18 05:15 Globulin 3.2 g/dL (2.5-4.5) 09/06/18 05:15 Albumin/Globulin Ratio 0.5 Ratio (1.1-2.1) L 09/06/18 05:15 Triglycerides 185 mg/dL (0-150) H 09/05/18 07:00 Cholesterol 83 mg/dL (0-200) 09/05/18 07:00 LDL Cholesterol, Calc 37 mg/dL (0-100) 09/05/18 07:00 HDL Cholesterol 9 mg/dL (40-60) L 09/05/18 07:00 Cholesterol/HDL Ratio 9.2 (0.0-5.0) H 09/05/18 07:00 Total PSA 0.81 ng/mL (0.13-4.0) 09/06/18 05:15 HCG, Quant < 1 mIU/mL 09/06/18 05:15 Specimen Type Clean catch urine 09/04/18 17:24 Urine Color Dark yellow (YELLOW) 09/04/18 17:24 Urine Appearance Cloudy (CLEAR) 09/04/18 17:24 Urine pH 6.0 (5.0 - 8.0) 09/04/18 17:24 Ur Specific [place] 1.010 (1.000-1.030) 09/04/18 17:24 Urine Protein 2+ (NEGATIVE) 09/04/18 17:24 Urine Glucose (UA) Negative (NEGATIVE) 09/04/18 17:24 Urine Ketones 2+ (NEGATIVE) 09/04/18 17:24 Urine Occult Blood 5+ (NEGATIVE) 09/04/18 17:24 Urine Nitrite Positive (NEGATIVE) 09/04/18 17:24 Urine Bilirubin Negative (NEGATIVE) 09/04/18 17:24 Urine Urobilinogen 1+ (NORMAL) 09/04/18 17:24 Ur Leukocyte Esterase 2+ (NEGATIVE) 09/04/18 17:24 Urine RBC 3-5 /HPF (NONE SEEN) 09/04/18 17:24 Urine WBC Tntc /HPF (NONE SEEN) 09/04/18 17:24 Ur Squamous Epith Cells Negative /HPF (NEGATIVE) 09/04/18 17:24 Urine Bacteria 4+ /HPF (NEGATIVE) 09/04/18 17:24 Ur Culture Indicated? Yes/culture set up 09/04/18 17:24 - Plan (1) UTI (urinary tract infection) with pyuria Status: Acute Plan: ADMIT, IV FLUIDS, IV FORTAZ, IV CIPRO, CONTINUE TO MONITOR (2) Leukocytosis Status: Acute Qualifiers: Leukocytosis type: unspecified Qualified Code(s): D72.829 - Elevated white blood cell count, unspecified (3) Generalized weakness Status: Acute (4) Acute pain of left hip Status: Resolved (5) Testicular/scrotal pain Status: Acute Plan: CONTINUE TO MONITOR
[2018-09-06] MEDS: COLACE CAP 100 MG PO SCH (20:57)
[2018-09-06] MEDS: FLOMAX PO SCH (20:57)
[2018-09-06] MEDS: DESYREL PO SCH (20:57)
[2018-09-06] MEDS: ANTIVERT TAB 25 MG PO SCH (20:57)
[2018-09-06] MEDS: ALBUMIN HUMAN 25%- 100 ML 100 ML IV SCH (22:23)
[2018-09-07 06:01] LABS: BASOPHILS % (AUTO) 0.1 % (0.2-1.0); EOSINOPHILS # (AUTO) 0.1 x10^3/uL (0.0-0.2); EOSINOPHILS % (AUTO) 0.4 % (0.9-2.9); HEMATOCRIT 27.4 % (42.0-54.0); HEMOGLOBIN 9.1 g/dL (13.5-18.0); LYMPHOCYTES # (AUTO) 0.7 X10^3/uL (1.3-2.9); LYMPHOCYTES % (AUTO) 4.9 % (21.0-51.0); MEAN CORPUSCULAR HEMOGLOBIN 33.9 pg (27.0-34.0); MEAN CORPUSCULAR HGB CONC 33.1 g/dL (33.0-35.0); MEAN CORPUSCULAR VOLUME 102.3 fL (80.0-100.0); MEAN PLATELET VOLUME 7.6 fL (7.4-11.0); MONOCYTES # (AUTO) 0.9 x10^3/uL (0.3-0.8); MONOCYTES % (AUTO) 5.7 % (0.0-13.0); NEUTROPHILS # (AUTO) 13.5 x10^3/uL (2.2-4.8); NEUTROPHILS % (AUTO) 88.9 % (42.0-75.0); PLATELET COUNT 336 X10^3/uL (150.0-450.0); RED BLOOD COUNT 2.67 X10^6/uL (4.7-6.0); RED CELL DISTRIBUTION WIDTH 13.3 % (11.6-16.5); WHITE BLOOD COUNT 15.1 X10^3/uL (3.6-10.0)
[2018-09-07 06:13] LABS: ALANINE AMINOTRANSFERASE 29 Units/L (12-78); ALKALINE PHOSPHATASE 81 Units/L (46-116); ASPARTATE AMINO TRANSFERASE 21 Units/L (15-37); BLOOD UREA NITROGEN 26 mg/dL (7-18); CARBON DIOXIDE 23.3 mmol/L (21-32); CHLORIDE 106 mmol/L (98-107); COR CA(FOR HYPOALB) 9.6 mg/dL (8.5-10.1); CREATININE 1.65 mg/dL (0.70-1.30); SODIUM 138 mmol/L (136-145); TOTAL PROTEIN 4.9 g/dL (6.4-8.2); eGFR NON BLACK RACES 44 (>60)
[2018-09-07] MEDS: FORTAZ or TAZICEF VIAL INJ IVP SCH (06:13)
[2018-09-07] MEDS: ROXICODONE TAB 15 MG PO SCH ×3 (06:14→22:08)
[2018-09-07] MEDS: NS 1000 ML 1,000 ML IV SCH ×2 (06:16→19:47)
[2018-09-07] MEDS: NORCO 10/325 TAB PO PRN ×2 (08:35→16:10)
[2018-09-07] MEDS: MEDROL DOSEPAK 4 MG PER TAB PO SCH (08:36)
[2018-09-07] MEDS: INVANZ INJ 1 GM VIAL 1 GM in NS 100 ML IV + SPIKE MINIBAG* 100 ML IV SCH (08:37)
[2018-09-07] MEDS: PriLOSEC PO SCH (08:37)
[2018-09-07] MEDS: NICOTINE PATCH TD SCH (08:37)
[2018-09-07] MEDS: SINGULAIR TAB 10 MG PO SCH (08:38)
[2018-09-07] MEDS: MAG-OX TAB PO SCH ×2 (08:38→22:09)
[2018-09-07] MEDS: CELEBREX PO SCH ×2 (08:39→22:10)
[2018-09-07] MEDS: NEURONTIN CAP 300 MG PO SCH ×2 (08:39→22:08)
[2018-09-07] MEDS: ALBUMIN HUMAN 25%- 100 ML 100 ML IV SCH (08:39)
[2018-09-07] MEDS: CYMBALTA PO SCH (08:51)
[2018-09-07] MEDS: CHECK PATCH XX SCH ×2 (08:51→22:11)
[2018-09-07] MEDS: LOVENOX INJ 40 MG SYR SC SCH (08:52)
[2018-09-07] MEDS: MILK OF MAGNESIA PO SCH ×2 (08:52→22:12)
[2018-09-07] MEDS: COLACE CAP 100 MG PO SCH (22:09)
[2018-09-07] MEDS: FLOMAX PO SCH (22:09)
[2018-09-07] MEDS: ANTIVERT TAB 25 MG PO SCH (22:09)
[2018-09-07] MEDS: DESYREL PO SCH (22:10)
[2018-09-08] MEDS: MEDROL DOSEPAK 4 MG PER TAB PO SCH ×3 (02:29→21:55)
[2018-09-08] MEDS: ROXICODONE TAB 15 MG PO SCH ×3 (05:56→21:55)
[2018-09-08] MEDS: NS 1000 ML 1,000 ML IV SCH ×3 (06:38→19:25)
[2018-09-08 07:21] LABS: BASOPHILS # (AUTO) 0.1 X10^3/uL (0.0-0.1); BASOPHILS % (AUTO) 0.4 % (0.2-1.0); EOSINOPHILS # (AUTO) 0.1 x10^3/uL (0.0-0.2); EOSINOPHILS % (AUTO) 0.3 % (0.9-2.9); HEMATOCRIT 28.1 % (42.0-54.0); HEMOGLOBIN 9.1 g/dL (13.5-18.0); LYMPHOCYTES # (AUTO) 0.8 X10^3/uL (1.3-2.9); LYMPHOCYTES % (AUTO) 4.7 % (21.0-51.0); MEAN CORPUSCULAR HEMOGLOBIN 33.6 pg (27.0-34.0); MEAN CORPUSCULAR HGB CONC 32.5 g/dL (33.0-35.0); MEAN CORPUSCULAR VOLUME 103.4 fL (80.0-100.0); MEAN PLATELET VOLUME 7.2 fL (7.4-11.0); MONOCYTES # (AUTO) 1.1 x10^3/uL (0.3-0.8); MONOCYTES % (AUTO) 6.2 % (0.0-13.0); NEUTROPHILS # (AUTO) 15.7 x10^3/uL (2.2-4.8); NEUTROPHILS % (AUTO) 88.4 % (42.0-75.0); PLATELET COUNT 409 X10^3/uL (150.0-450.0); RED BLOOD COUNT 2.72 X10^6/uL (4.7-6.0); RED CELL DISTRIBUTION WIDTH 13.1 % (11.6-16.5); WHITE BLOOD COUNT 17.8 X10^3/uL (3.6-10.0)
[2018-09-08 07:23] LABS: ALANINE AMINOTRANSFERASE 25 Units/L (12-78); ALBUMIN 2.1 g/dL (3.4-5.0); ALKALINE PHOSPHATASE 79 Units/L (46-116); ASPARTATE AMINO TRANSFERASE 19 Units/L (15-37); BLOOD UREA NITROGEN 23 mg/dL (7-18); CALCIUM 8.5 mg/dL (8.5-10.1); CARBON DIOXIDE 21.6 mmol/L (21-32); CHLORIDE 108 mmol/L (98-107); CREATININE 1.47 mg/dL (0.70-1.30); SODIUM 141 mmol/L (136-145); eGFR NON BLACK RACES 51 (>60)
[2018-09-08] MEDS: ALBUMIN HUMAN 25%- 100 ML 100 ML IV SCH (09:41)
[2018-09-08] MEDS: INVANZ INJ 1 GM VIAL 1 GM in NS 100 ML IV + SPIKE MINIBAG* 100 ML IV SCH (09:42)
[2018-09-08] MEDS: MILK OF MAGNESIA PO SCH ×2 (09:43→21:54)
[2018-09-08] MEDS: NICOTINE PATCH TD SCH (09:43)
[2018-09-08] MEDS: PriLOSEC PO SCH (09:44)
[2018-09-08] MEDS: MAG-OX TAB PO SCH ×2 (09:44→21:56)
[2018-09-08] MEDS: NEURONTIN CAP 300 MG PO SCH ×2 (09:45→21:54)
[2018-09-08] MEDS: CELEBREX PO SCH (09:45)
[2018-09-08] MEDS: SINGULAIR TAB 10 MG PO SCH (09:46)
[2018-09-08] MEDS: LOVENOX INJ 40 MG SYR SC SCH (09:46)
[2018-09-08] MEDS: CHECK PATCH XX SCH ×2 (09:48→21:30)
[2018-09-08] MEDS: CYMBALTA PO SCH (10:09)
[2018-09-08] MEDS ORDERED: LASIX IVP ONE (14:55)
--- NOTE | 2018-09-08 15:43 | RAD ---
Examination: Portable AP chest History: COPD SOB Comparison 09/04/2018 Findings: Heart size is upper normal. The lungs and pleural spaces are clear. There is no definite tracheal or mediastinal deformity on this follow-up view. A spinal stimulator device is noted in the lower thoracic spinal canal. Impression: No acute cardiac, pulmonary or pleural lesion identified. Reported By:
[2018-09-08] MEDS: DESYREL PO SCH (21:53)
[2018-09-08] MEDS: COLACE CAP 100 MG PO SCH (21:55)
[2018-09-08] MEDS: FLOMAX PO SCH (21:56)
[2018-09-08] MEDS ORDERED: ZOSYN VIAL 3.375 GRAMS IV SCH (22:00)
[2018-09-09] MEDS: NS 1000 ML 1,000 ML IV SCH ×2 (02:18→19:44)
[2018-09-09] MEDS: ROXICODONE TAB 15 MG PO SCH ×3 (05:30→21:00)
[2018-09-09 06:10] LABS: ALANINE AMINOTRANSFERASE 24 Units/L (12-78); ALBUMIN 2.1 g/dL (3.4-5.0); ALKALINE PHOSPHATASE 79 Units/L (46-116); ASPARTATE AMINO TRANSFERASE 16 Units/L (15-37); BLOOD UREA NITROGEN 18 mg/dL (7-18); CALCIUM 8.6 mg/dL (8.5-10.1); CARBON DIOXIDE 24.6 mmol/L (21-32); CHLORIDE 108 mmol/L (98-107); COR CA(FOR HYPOALB) 10.1 mg/dL (8.5-10.1); CREATININE 1.25 mg/dL (0.70-1.30); SODIUM 140 mmol/L (136-145); TOTAL PROTEIN 4.9 g/dL (6.4-8.2); eGFR NON BLACK RACES > 60 (>60)
[2018-09-09 06:14] LABS: BASOPHILS % (AUTO) 0.2 % (0.2-1.0); EOSINOPHILS % (AUTO) 0.2 % (0.9-2.9); HEMOGLOBIN 8.8 g/dL (13.5-18.0); LYMPHOCYTES # (AUTO) 0.9 X10^3/uL (1.3-2.9); LYMPHOCYTES % (AUTO) 5.2 % (21.0-51.0); MEAN CORPUSCULAR HEMOGLOBIN 34.1 pg (27.0-34.0); MEAN CORPUSCULAR HGB CONC 33.8 g/dL (33.0-35.0); MEAN CORPUSCULAR VOLUME 100.8 fL (80.0-100.0); MEAN PLATELET VOLUME 6.7 fL (7.4-11.0); MONOCYTES # (AUTO) 1.1 x10^3/uL (0.3-0.8); MONOCYTES % (AUTO) 5.9 % (0.0-13.0); NEUTROPHILS # (AUTO) 15.9 x10^3/uL (2.2-4.8); NEUTROPHILS % (AUTO) 88.5 % (42.0-75.0); PLATELET COUNT 479 X10^3/uL (150.0-450.0); RED BLOOD COUNT 2.58 X10^6/uL (4.7-6.0); RED CELL DISTRIBUTION WIDTH 12.9 % (11.6-16.5); WHITE BLOOD COUNT 17.9 X10^3/uL (3.6-10.0)
[2018-09-09] MEDS: CHECK PATCH XX SCH ×2 (10:00→20:55)
[2018-09-09] MEDS: ALBUMIN HUMAN 25%- 100 ML 100 ML IV SCH (10:00)
[2018-09-09] MEDS: K-DUR TAB 20 MEQ PO SCH ×2 (10:01→20:49)
[2018-09-09] MEDS: INVANZ INJ 1 GM VIAL 1 GM in NS 100 ML IV + SPIKE MINIBAG* 100 ML IV SCH (10:01)
[2018-09-09] MEDS: LASIX IVP SCH ×2 (10:01→20:50)
[2018-09-09] MEDS: LOVENOX INJ 40 MG SYR SC SCH (10:02)
[2018-09-09] MEDS: MAG-OX TAB PO SCH ×2 (10:03→20:49)
[2018-09-09] MEDS: MILK OF MAGNESIA PO SCH (10:03)
[2018-09-09] MEDS: NEURONTIN CAP 300 MG PO SCH ×2 (10:03→20:50)
[2018-09-09] MEDS: MEDROL DOSEPAK 4 MG PER TAB PO SCH (10:03)
[2018-09-09] MEDS: SINGULAIR TAB 10 MG PO SCH (10:04)
[2018-09-09] MEDS: PriLOSEC PO SCH (10:04)
[2018-09-09] MEDS: NICOTINE PATCH TD SCH (10:04)
[2018-09-09] MEDS: CYMBALTA PO SCH (10:26)
[2018-09-09] MEDS: DESYREL PO SCH (20:48)
[2018-09-09] MEDS: COLACE CAP 100 MG PO SCH (20:48)
[2018-09-09] MEDS: FLOMAX PO SCH (20:49)
[2018-09-10] MEDS: MEDROL DOSEPAK 4 MG PER TAB PO SCH ×2 (01:11→09:50)
[2018-09-10] MEDS: NS 1000 ML 1,000 ML IV SCH ×3 (01:11→20:28)
[2018-09-10] MEDS: MILK OF MAGNESIA PO SCH ×3 (01:13→20:54)
[2018-09-10] MEDS: ROXICODONE TAB 15 MG PO SCH ×3 (05:08→21:00)
[2018-09-10 05:22] LABS: BASOPHILS # (AUTO) 0.2 X10^3/uL (0.0-0.1); BASOPHILS % (AUTO) 0.9 % (0.2-1.0); EOSINOPHILS % (AUTO) 0.2 % (0.9-2.9); HEMATOCRIT 26.8 % (42.0-54.0); HEMOGLOBIN 8.9 g/dL (13.5-18.0); LYMPHOCYTES # (AUTO) 1.1 X10^3/uL (1.3-2.9); LYMPHOCYTES % (AUTO) 5.2 % (21.0-51.0); MEAN CORPUSCULAR HGB CONC 33.2 g/dL (33.0-35.0); MEAN CORPUSCULAR VOLUME 102.4 fL (80.0-100.0); MEAN PLATELET VOLUME 7.7 fL (7.4-11.0); MONOCYTES # (AUTO) 1.3 x10^3/uL (0.3-0.8); MONOCYTES % (AUTO) 6.1 % (0.0-13.0); NEUTROPHILS % (AUTO) 87.6 % (42.0-75.0); PLATELET COUNT 546 X10^3/uL (150.0-450.0); RED BLOOD COUNT 2.61 X10^6/uL (4.7-6.0); RED CELL DISTRIBUTION WIDTH 13.3 % (11.6-16.5); WHITE BLOOD COUNT 21.6 X10^3/uL (3.6-10.0)
[2018-09-10 05:34] LABS: ALANINE AMINOTRANSFERASE 21 Units/L (12-78); ALBUMIN 2.3 g/dL (3.4-5.0); ALKALINE PHOSPHATASE 73 Units/L (46-116); BLOOD UREA NITROGEN 15 mg/dL (7-18); CALCIUM 8.9 mg/dL (8.5-10.1); CARBON DIOXIDE 25.6 mmol/L (21-32); CHLORIDE 106 mmol/L (98-107); COR CA(FOR HYPOALB) 10.3 mg/dL (8.5-10.1); SODIUM 140 mmol/L (136-145); TOTAL PROTEIN 5.3 g/dL (6.4-8.2); eGFR NON BLACK RACES > 60 (>60)
[2018-09-10 05:37] LABS: ASPARTATE AMINO TRANSFERASE 19 Units/L (15-37)
[2018-09-10 05:53] LABS: PLATELET MORPHOLOGY COMMENT NORMAL (NORMAL)
[2018-09-10] MEDS ORDERED: VITAMIN D (1.25MG) PO SCH (09:00)
[2018-09-10] MEDS: CHECK PATCH XX SCH ×2 (09:45→20:55)
[2018-09-10] MEDS: INVANZ INJ 1 GM VIAL 1 GM in NS 100 ML IV + SPIKE MINIBAG* 100 ML IV SCH (09:46)
[2018-09-10] MEDS: ALBUMIN HUMAN 25%- 100 ML 100 ML IV SCH (09:46)
[2018-09-10] MEDS: CYMBALTA PO SCH (09:48)
[2018-09-10] MEDS: PriLOSEC PO SCH (09:48)
[2018-09-10] MEDS: NEURONTIN CAP 300 MG PO SCH ×2 (09:49→20:51)
[2018-09-10] MEDS: SINGULAIR TAB 10 MG PO SCH (09:49)
[2018-09-10] MEDS: MAG-OX TAB PO SCH ×2 (09:49→20:51)
[2018-09-10] MEDS: LOVENOX INJ 40 MG SYR SC SCH (09:49)
[2018-09-10] MEDS: NICOTINE PATCH TD SCH (09:51)
[2018-09-10] MEDS ORDERED: MEDROL DOSEPAK 4 MG PER TAB PO STA (10:59)
[2018-09-10] MEDS: TYLENOL 325 MG TAB PO PRN (17:00)
--- NOTE | 2018-09-10 19:54 | PCM.PROG ---
Progress Note - Progress Note for Day of Date of Exam: 09/10/18 - Subjective Subjective: WAS ADMITTED FOR UTI, LEUKOCYTOSIS, GENERALIZED WEAKNESS, AND LEFT HIP PAIN. URINE AND BLOOD CULTURES WERE POSITIVE FOR GROWTH OF E.COLI. TODAY, HE IS ALERT AND ORIENTED, LYING IN BED ON MORNING ROUNDS. HE CONTINUES WITH COMPLAINTS OF LOWER ABDOMINAL PAIN. HE ALSO CONTINUES WITH SCROTAL PAIN, BUT REPORTS SLIGHT IMPROVEMENT SINCE WE SAW HIM LAST. ON EXAMINATION, HEART IS REGULAR IN RATE AND RHYTHM. BILATERAL LUNGS ARE NOTED WITH SCATTERED WHEEZING. ABDOMEN IS ROUND, SOFT, AND NOTED WITH MILD SUPRAPUBIC TENDERNESS. HIS VITALS THIS MORNING ARE 99.1-108-20-91%-176/92. LABS WERE OBTAINED. ABNORMAL LAB VALUES INCLUDE THE FOLLOWING: WBC 21.6, RBC 2.61, HGB 8.9, HCT 26.8, PLT COUNT 546, TOTAL PROTEIN 5.3, ALBUMIN 2.3. HE IS CURRENTLY RECEIVING INVANZ 1G IV DAILY. WE WILL CONTINUE WITH CURRENT PLAN OF CARE TODAY. OTHERWISE, WE WILL FOLLOW UP WITH AM LABS AND CONTINUE TO MONITOR. - Past Medical Family Social History Past Med/Fam/Surg Hx: No changes since H&P Allergies: Allergies No Known Drug Allergies Allergy (Verified 09/04/18 13:24) - Review of Systems ROS: No change since H&P - Vital Signs and I&O's Vital Signs: Temperature 101.6 F Pulse Rate [Left Radial] 82 Pulse Rate 116 Respiratory Rate 20 Blood Pressure [Left Arm] 122/57 Blood Pressure [Right Arm] 116/68 Blood Pressure 135/86 O2 Sat by Pulse Oximetry 96 Intake and Output: Intake & Output 09/08/18 09/09/18 09/10/18 09/11/18 11:59 11:59 11:59 11:59 Intake Total 1740 / 1740 2950 / 2950 3680 / 3680 480 / 480 Output Total 1950 / 1950 2950 / 2950 2600 / 2600 Balance -210 / -210 0 / 0 1080 / 1080 480 / 480 - Physical Exam Oriented: Normal Eyes: Normal Ear: Normal Nose: Normal Throat: Normal Respiratory: Generalized, Diminished, Wheezes Cardiovascular: Normal. negative: S3, S4, Murmur : Other (SCROTAL PAIN) Auscultation: Bowel Sounds: Normal Palpation: Normal Tenderness: Suprapubic, Mild. negative: Rebound, Guarding, Rigidity Skin: Normal Musculoskeletal: Left, Hip, Tender Psychiatric: Normal Mood Description: Calm Affect: Normal Speech Pattern: Clear, Appropriate - Laboratory and Diagnostics Result Diagrams: 09/10/18 04:50 09/10/18 04:50 Labs: 09/04/18 16:36 Blood Blood Culture - Final Escherichia Coli 09/04/18 17:24 Urine,Clean Catch Urine Culture - Final Escherichia Coli Laboratory WBC 21.6 X10^3/uL (3.6-10.0) H 09/10/18 04:50 RBC 2.61 X10^6/uL (4.7-6.0) L 09/10/18 04:50 Hgb 8.9 g/dL (13.5-18.0) L 09/10/18 04:50 Hct 26.8 % (42.0-54.0) L 09/10/18 04:50 MCV 102.4 fL (80.0-100.0) H 09/10/18 04:50 MCH 34.0 pg (27.0-34.0) 09/10/18 04:50 MCHC 33.2 g/dL (33.0-35.0) 09/10/18 04:50 RDW 13.3 % (11.6-16.5) 09/10/18 04:50 Plt Count 546 X10^3/uL (150.0-450.0) H 09/10/18 04:50 Plt Count Comment Increased (ADEQUATE) 09/10/18 04:50 MPV 7.7 fL (7.4-11.0) 09/10/18 04:50 Neut % (Auto) 87.6 % (42.0-75.0) H 09/10/18 04:50 Lymph % (Auto) 5.2 % (21.0-51.0) L 09/10/18 04:50 [place] % (Auto) 6.1 % (0.0-13.0) 09/10/18 04:50 Eos % (Auto) 0.2 % (0.9-2.9) L 09/10/18 04:50 Baso % (Auto) 0.9 % (0.2-1.0) 09/10/18 04:50 Neut # (Auto) 19.0 x10^3/uL (2.2-4.8) H 09/10/18 04:50 Lymph # (Auto) 1.1 X10^3/uL (1.3-2.9) L 09/10/18 04:50 [place] # (Auto) 1.3 x10^3/uL (0.3-0.8) H 09/10/18 04:50 Eos # (Auto) 0.0 x10^3/uL (0.0-0.2) 09/10/18 04:50 Baso # (Auto) 0.2 X10^3/uL (0.0-0.1) H 09/10/18 04:50 Absolute Nucleated RBC 0.0 /100WBC 09/10/18 04:50 Total Counted 100 09/10/18 04:50 Neutrophils % (Manual) 91 % (39-76) H 09/10/18 04:50 Lymphocytes % (Manual) 4 % (13-43) L 09/10/18 04:50 Monocytes % (Manual) 5 % (4-9) 09/10/18 04:50 Plt Morphology Comment Normal (NORMAL) 09/10/18 04:50 RBC Morphology Normal (NORMAL) 09/10/18 04:50 Sodium 140 mmol/L (136-145) 09/10/18 04:50 Corrected Sodium TNP 09/10/18 04:50 Potassium 4.8 mmol/L (3.5-5.1) 09/10/18 04:50 Chloride 106 mmol/L (98-107) 09/10/18 04:50 Carbon Dioxide 25.6 mmol/L (21-32) 09/10/18 04:50 BUN 15 mg/dL (7-18) 09/10/18 04:50 Creatinine 1.20 mg/dL (0.70-1.30) 09/10/18 04:50 Est GFR (MDRD) Af Amer > 60 (>60) 09/10/18 04:50 Est GFR (MDRD) Non-Af > 60 (>60) 09/10/18 04:50 Glucose 89 mg/dL (65-99) 09/10/18 04:50 Lactic Acid 0.8 mmol/L (0.4-2.0) 09/04/18 16:36 Calcium 8.9 mg/dL (8.5-10.1) 09/10/18 04:50 Corrected Calcium 10.3 mg/dL (8.5-10.1) H 09/10/18 04:50 Magnesium 1.2 mg/dL (1.7-2.9) L 09/07/18 05:17 Total Bilirubin 0.50 mg/dL (0.2-1.0) 09/10/18 04:50 AST 19 Units/L (15-37) 09/10/18 04:50 ALT 21 Units/L (12-78) 09/10/18 04:50 Alkaline Phosphatase 73 Units/L (46-116) 09/10/18 04:50 Creatine Kinase 321 Units/L (39-308) H 09/05/18 07:00 CK-MB (CK-2) 1.2 ng/mL (0-4.0) 09/05/18 07:00 CK/CKMB % Calc 0.4 % (<4) 09/05/18 07:00 Troponin I < 0.02 ng/mL (0-1.5) 09/05/18 07:00 Total Protein 5.3 g/dL (6.4-8.2) L 09/10/18 04:50 Albumin 2.3 g/dL (3.4-5.0) L 09/10/18 04:50 Globulin 3.0 g/dL (2.5-4.5) 09/10/18 04:50 Albumin/Globulin Ratio 0.8 Ratio (1.1-2.1) L 09/10/18 04:50 Triglycerides 185 mg/dL (0-150) H 09/05/18 07:00 Cholesterol 83 mg/dL (0-200) 09/05/18 07:00 LDL Cholesterol, Calc 37 mg/dL (0-100) 09/05/18 07:00 HDL Cholesterol 9 mg/dL (40-60) L 09/05/18 07:00 Cholesterol/HDL Ratio 9.2 (0.0-5.0) H 09/05/18 07:00 Alpha Fetoprotein 1 ng/mL (0-9) 09/06/18 05:15 Total PSA 0.81 ng/mL (0.13-4.0) 09/06/18 05:15 HCG, Quant < 1 mIU/mL 09/06/18 05:15 Specimen Type Clean catch urine 09/04/18 17:24 Urine Color Dark yellow (YELLOW) 09/04/18 17:24 Urine Appearance Cloudy (CLEAR) 09/04/18 17:24 Urine pH 6.0 (5.0 - 8.0) 09/04/18 17:24 Ur Specific [place] 1.010 (1.000-1.030) 09/04/18 17:24 Urine Protein 2+ (NEGATIVE) 09/04/18 17:24 Urine Glucose (UA) Negative (NEGATIVE) 09/04/18 17:24 Urine Ketones 2+ (NEGATIVE) 09/04/18 17:24 Urine Occult Blood 5+ (NEGATIVE) 09/04/18 17:24 Urine Nitrite Positive (NEGATIVE) 09/04/18 17:24 Urine Bilirubin Negative (NEGATIVE) 09/04/18 17:24 Urine Urobilinogen 1+ (NORMAL) 09/04/18 17:24 Ur Leukocyte Esterase 2+ (NEGATIVE) 09/04/18 17:24 Urine RBC 3-5 /HPF (NONE SEEN) 09/04/18 17:24 Urine WBC Tntc /HPF (NONE SEEN) 09/04/18 17:24 Ur Squamous Epith Cells Negative /HPF (NEGATIVE) 09/04/18 17:24 Urine Bacteria 4+ /HPF (NEGATIVE) 09/04/18 17:24 Ur Culture Indicated? Yes/culture set up 09/04/18 17:24 - Plan (1) UTI (urinary tract infection) with pyuria Status: Acute Plan: IV FLUIDS, INVANZ 1G IV DAILY, CONTINUE TO MONITOR (2) Leukocytosis Status: Acute Qualifiers: Leukocytosis type: unspecified Qualified Code(s): D72.829 - Elevated white blood cell count, unspecified (3) Generalized weakness Status: Acute (4) Acute pain of left hip Status: Resolved (5) Testicular/scrotal pain Status: Acute Plan: CONTINUE TO MONITOR (6) COPD (chronic obstructive pulmonary disease) Status: Chronic Qualifiers: COPD type: unspecified COPD Qualified Code(s): J44.9 - Chronic obstructive pulmonary disease, unspecified
[2018-09-10] MEDS: FLOMAX PO SCH (20:51)
[2018-09-10] MEDS: DESYREL PO SCH (20:51)
[2018-09-10] MEDS: COLACE CAP 100 MG PO SCH (20:51)
[2018-09-11] MEDS: NS 1000 ML 1,000 ML IV SCH ×3 (02:00→09:53)
[2018-09-11] MEDS: ROXICODONE TAB 15 MG PO SCH ×3 (05:04→21:13)
[2018-09-11 05:27] LABS: BASOPHILS # (AUTO) 0.1 X10^3/uL (0.0-0.1); BASOPHILS % (AUTO) 0.4 % (0.2-1.0); EOSINOPHILS % (AUTO) 0.2 % (0.9-2.9); HEMATOCRIT 23.5 % (42.0-54.0); HEMOGLOBIN 7.7 g/dL (13.5-18.0); LYMPHOCYTES # (AUTO) 1.2 X10^3/uL (1.3-2.9); LYMPHOCYTES % (AUTO) 6.4 % (21.0-51.0); MEAN CORPUSCULAR HEMOGLOBIN 33.5 pg (27.0-34.0); MEAN CORPUSCULAR VOLUME 101.5 fL (80.0-100.0); MEAN PLATELET VOLUME 6.9 fL (7.4-11.0); MONOCYTES # (AUTO) 1.8 x10^3/uL (0.3-0.8); MONOCYTES % (AUTO) 9.9 % (0.0-13.0); NEUTROPHILS # (AUTO) 15.4 x10^3/uL (2.2-4.8); NEUTROPHILS % (AUTO) 83.1 % (42.0-75.0); PLATELET COUNT 570 X10^3/uL (150.0-450.0); RED BLOOD COUNT 2.31 X10^6/uL (4.7-6.0); RED CELL DISTRIBUTION WIDTH 12.9 % (11.6-16.5); WHITE BLOOD COUNT 18.6 X10^3/uL (3.6-10.0)
[2018-09-11 05:37] LABS: ALANINE AMINOTRANSFERASE 17 Units/L (12-78); ALBUMIN 2.1 g/dL (3.4-5.0); ALKALINE PHOSPHATASE 69 Units/L (46-116); ASPARTATE AMINO TRANSFERASE 12 Units/L (15-37); BLOOD UREA NITROGEN 18 mg/dL (7-18); CARBON DIOXIDE 24.9 mmol/L (21-32); CHLORIDE 105 mmol/L (98-107); COR CA(FOR HYPOALB) 10.5 mg/dL (8.5-10.1); CREATININE 1.25 mg/dL (0.70-1.30); SODIUM 138 mmol/L (136-145); eGFR NON BLACK RACES > 60 (>60)
[2018-09-11 05:43] LABS: HYPOCHROMASIA 1+; PLATELET MORPHOLOGY COMMENT NORMAL (NORMAL)
[2018-09-11] MEDS ORDERED: MEDROL DOSEPAK 4 MG PER TAB PO SCH (09:00)
[2018-09-11] MEDS: CHECK PATCH XX SCH ×2 (09:40→21:15)
[2018-09-11] MEDS: INVANZ INJ 1 GM VIAL 1 GM in NS 100 ML IV + SPIKE MINIBAG* 100 ML IV SCH (09:47)
[2018-09-11] MEDS: ALBUMIN HUMAN 25%- 100 ML 100 ML IV SCH (09:47)
[2018-09-11] MEDS: NICOTINE PATCH TD SCH (09:49)
[2018-09-11] MEDS: LOVENOX INJ 40 MG SYR SC SCH (09:49)
[2018-09-11] MEDS: MAG-OX TAB PO SCH ×2 (09:50→21:12)
[2018-09-11] MEDS: PriLOSEC PO SCH (09:50)
[2018-09-11] MEDS: NEURONTIN CAP 300 MG PO SCH ×2 (09:50→21:13)
[2018-09-11] MEDS: SINGULAIR TAB 10 MG PO SCH (09:50)
[2018-09-11] MEDS: CYMBALTA PO SCH (09:58)
[2018-09-11] MEDS ORDERED: NS 500 ML IV 500 ML IV ONE (10:03)
[2018-09-11] MEDS ORDERED: BENADRYL INJ 50 MG VIAL IVP PRN (10:03)
[2018-09-11] MEDS: LEVSIN/MAALOX/LIDOC VISC PO SCH ×4 (11:30→21:14)
[2018-09-11] MEDS: PEPCID 20 MG IV PREMIX* 20 MG/50 ML BAG IV SCH ×2 (11:30→21:19)
[2018-09-11] MEDS: PROTONIX INJ 40 MG VIAL IVP SCH ×2 (11:30→21:16)
--- NOTE | 2018-09-11 12:23 | DR.CONSULT ---
Consult - Consultation for Day of: Date: 09/11/18 - Chief Complaint Chief Complaint: Patient referred for anemia. Patient with no GI complaints - History of Present Illness History of Present Illness: Patient is a 68 yo male who was referred for anemia. Patient with no GI complaints. Patient denies dysphagia, dyspepsia, nausea, vomiting, abdominal pain, constipation, diarrhea, melena and hematochezia. Last colon was 01/02/15 which showed 1 cm tubular adenomatous colon polyp and internal hemorrhoids. Last EGD was 08/20/2009 distal esophagitits with irregular z-line and antral gastriti. Hgb 7.7 Hct 23.5, Plt 570, BUN 18, Creatinine 1.25 - Past Medical History Past Medical History: Anemia, Anxiety, Arthritis, COPD, Dyslipidemia, GERD, Hypertension Additional Medical History: A-Fib - Past Surgical History Surgical History: Unknown Additional Surgical History: intestinal bypass, cholecystectomy - Social History Does patient currently use any type of tobacco product: Yes (2ppd) Have you used tobacco products in the last 12 months: Yes Type of Tobacco Use: None Does any household member use tobacco: No Alcohol Use: Occasionally Drug Use: Marijuana - Medications Home Medications: No Known Drug Allergies Allergy (Verified 09/04/18 13:24) CONTINUE taking the following medications celecoxib 200 mg PO BID 09/04/18 [History] duloxetine 60 mg PO DAILY 09/04/18 [History] ergocalciferol (vitamin D2) 50,000 unit PO WEEKLY 09/04/18 [History] furosemide 40 mg PO PRN PRN 09/04/18 [History] gabapentin 300 mg PO BID 09/04/18 [History] hydrocodone-acetaminophen 1 tab PO QID PRN 09/04/18 [History] lisinopril 20 mg PO DAILY 09/04/18 [History] magnesium 400 mg PO DAILY 09/04/18 [History] meclizine 25 mg PO HS 09/04/18 [History] montelukast 10 mg PO DAILY 09/04/18 [History] omeprazole 40 mg PO DAILY 09/04/18 [History] oxycodone 30 mg PO TID PRN 09/04/18 [History] phentermine [Adipex-P] 37.5 mg PO DAILY 09/04/18 [History] potassium chloride 20 meq PO DAILY 09/04/18 [History] tamsulosin 0.4 mg PO HS 09/04/18 [History] trazodone 200 mg PO HS 09/04/18 [History] triamterene-hydrochlorothiazid 1 cap PO DAILY 09/04/18 [History] - Review of Systems Gastrointestinal: No Symptoms Reported. denies: Nausea, Vomiting, Abdominal Pain, Diarrhea, Constipation, Melena, Hematochezia, Other - Physical Exam Vital Signs: Temperature 98.2 F Pulse Rate [Left Radial] 91 Pulse Rate 116 Respiratory Rate 20 Blood Pressure [Left Arm] 113/61 Blood Pressure [Right Arm] 105/55 Blood Pressure 135/86 O2 Sat by Pulse Oximetry 98 Oriented: Normal Eyes: Normal Ear: Normal Nose: Normal Throat: Normal Respiratory: Clear Throughout Cardiovascular: Edema Auscultation: Bowel Sounds: Normal Palpation: Normal (nos distention). negative: Spleen Enlarged, Liver Enlarged, Mass Pulsatile Tenderness: Normal (no tendernes) Skin: Bruising Musculoskeletal: Normal Psychiatric: Normal Mood Description: Calm Affect: Normal Speech Pattern: Clear, Appropriate - Plan Plan: Assessment. 1. Anemia. 2. GERD. 3. H/o Tubular adenomatous colon polyp. Plan. 1.Cont protonix, Monitor hgb, transfuse as needed, patient with sepsis will do EGD on will need colon asss outpatient. Plan reviewed with Dr. Jolly - Allergies Allergies/Adverse Reactions: Allergies Allergy/AdvReac Type Severity Reaction Status Date / Time No Known Drug Allergies Allergy Verified 09/04/18 13:24
[2018-09-11] MEDS: MILK OF MAGNESIA PO SCH ×2 (14:57→21:19)
[2018-09-11] MEDS: TYLENOL 325 MG TAB PO PRN (15:39)
--- NOTE | 2018-09-11 19:36 | PCM.PROG ---
Progress Note - Progress Note for Day of Date of Exam: 09/11/18 - Subjective Subjective: WAS ADMITTED FOR UTI, LEUKOCYTOSIS, GENERALIZED WEAKNESS, AND LEFT HIP PAIN. WE FOUND A LESION TO THE TESTICLE FOR WHICH HE WILL REQUIRE A UROLOGY CONSULT AFTER DISCHARGE. URINE AND BLOOD CULTURES WERE POSITIVE FOR GROWTH OF E.COLI. TODAY, HE IS ALERT AND ORIENTED, LYING IN BED ON MORNING ROUNDS. HE REPORTS GENERALIZED WEAKNESS TODAY. ON EXAMINATION, HEART IS REGULAR IN RATE AND RHYTHM. BILATERAL LUNGS ARE NOTED WITH SCATTERED WHEEZING. ABDOMEN IS ROUND, SOFT, AND NOTED WITH MILD SUPRAPUBIC TENDERNESS. HIS VITALS THIS MORNING ARE 98.2-91-20-98%-113/61. LABS WERE OBTAINED. ABNORMAL LAB VALUES INCLUDE THE FOLLOWING: WBC 18.6, RBC 2.31, HGB 7.7, HCT 23.5, PLT COUNT 570, AST 12, TOTAL PROTEIN 5.0, ALBUMIN 2.1. HE HAS A HISTORY OF LONGTERM PREDNISONE USE. ANEMIA IS LIKELY FROM A BLEEDING ULCER. HE IS CURRENTLY RECEIVING INVANZ 1G IV DAILY. WE WILL TRANSFUSE TWO UNITS OF PACKED RED BLOOD CELLS AND CONSULT GI TODAY. OTHERWISE, WE WILL CONTINUE WITH CURRENT PLAN OF CARE. WE WILL FOLLOW UP WITH AM LABS AND CONTINUE TO MONITOR. - Past Medical Family Social History Past Med/Fam/Surg Hx: No changes since H&P Allergies: Allergies No Known Drug Allergies Allergy (Verified 09/04/18 13:24) - Review of Systems ROS: No change since H&P - Vital Signs and I&O's Vital Signs: Temperature 100 F Pulse Rate [Left Radial] 90 Pulse Rate 116 Respiratory Rate 18 Blood Pressure [Left Arm] 101/57 Blood Pressure [Right Arm] 105/55 Blood Pressure 135/86 O2 Sat by Pulse Oximetry 98 Intake and Output: Intake & Output 09/09/18 09/10/18 09/11/18 09/12/18 11:59 11:59 11:59 11:59 Intake Total 2950 / 2950 3680 / 3680 1560 / 1560 480 / 480 Output Total 2950 / 2950 2600 / 2600 525 / 525 650 / 650 Balance 0 / 0 1080 / 1080 1035 / 1035 -170 / -170 - Physical Exam Oriented: Normal Eyes: Normal Ear: Normal Nose: Normal Throat: Normal Respiratory: Generalized, Diminished, Wheezes Cardiovascular: Edema : Other (SCROTAL PAIN) Auscultation: Bowel Sounds: Normal Palpation: Normal Tenderness: Normal Skin: Bruising Musculoskeletal: Normal Psychiatric: Normal Mood Description: Calm Affect: Normal Speech Pattern: Clear, Appropriate - Laboratory and Diagnostics Result Diagrams: 09/11/18 05:12 09/11/18 05:00 Labs: 09/04/18 16:36 Blood Blood Culture - Final Escherichia Coli 09/04/18 17:24 Urine,Clean Catch Urine Culture - Final Escherichia Coli Laboratory WBC 18.6 X10^3/uL (3.6-10.0) H 09/11/18 05:12 RBC 2.31 X10^6/uL (4.7-6.0) L 09/11/18 05:12 Hgb 7.7 g/dL (13.5-18.0) L 09/11/18 05:12 Hct 23.5 % (42.0-54.0) L 09/11/18 05:12 MCV 101.5 fL (80.0-100.0) H 09/11/18 05:12 MCH 33.5 pg (27.0-34.0) 09/11/18 05:12 MCHC 33.0 g/dL (33.0-35.0) 09/11/18 05:12 RDW 12.9 % (11.6-16.5) 09/11/18 05:12 Plt Count 570 X10^3/uL (150.0-450.0) H 09/11/18 05:12 Plt Count Comment Increased (ADEQUATE) 09/11/18 05:12 MPV 6.9 fL (7.4-11.0) L 09/11/18 05:12 Neut % (Auto) 83.1 % (42.0-75.0) H 09/11/18 05:12 Lymph % (Auto) 6.4 % (21.0-51.0) L 09/11/18 05:12 [place] % (Auto) 9.9 % (0.0-13.0) 09/11/18 05:12 Eos % (Auto) 0.2 % (0.9-2.9) L 09/11/18 05:12 Baso % (Auto) 0.4 % (0.2-1.0) 09/11/18 05:12 Neut # (Auto) 15.4 x10^3/uL (2.2-4.8) H 09/11/18 05:12 Lymph # (Auto) 1.2 X10^3/uL (1.3-2.9) L 09/11/18 05:12 [place] # (Auto) 1.8 x10^3/uL (0.3-0.8) H 09/11/18 05:12 Eos # (Auto) 0.0 x10^3/uL (0.0-0.2) 09/11/18 05:12 Baso # (Auto) 0.1 X10^3/uL (0.0-0.1) 09/11/18 05:12 Absolute Nucleated RBC 0.0 /100WBC 09/11/18 05:12 Total Counted 100 09/10/18 04:50 Neutrophils % (Manual) 91 % (39-76) H 09/10/18 04:50 Lymphocytes % (Manual) 4 % (13-43) L 09/10/18 04:50 Monocytes % (Manual) 5 % (4-9) 09/10/18 04:50 Plt Morphology Comment Normal (NORMAL) 09/11/18 05:12 RBC Morphology Abnormal (NORMAL) 09/11/18 05:12 Hypochromasia 1+ A 09/11/18 05:12 Sodium 138 mmol/L (136-145) 09/11/18 05:00 Corrected Sodium TNP 09/11/18 05:00 Potassium 4.7 mmol/L (3.5-5.1) 09/11/18 05:00 Chloride 105 mmol/L (98-107) 09/11/18 05:00 Carbon Dioxide 24.9 mmol/L (21-32) 09/11/18 05:00 BUN 18 mg/dL (7-18) 09/11/18 05:00 Creatinine 1.25 mg/dL (0.70-1.30) 09/11/18 05:00 Est GFR (MDRD) Af Amer > 60 (>60) 09/11/18 05:00 Est GFR (MDRD) Non-Af > 60 (>60) 09/11/18 05:00 Glucose 99 mg/dL (65-99) 09/11/18 05:00 Lactic Acid 0.8 mmol/L (0.4-2.0) 09/04/18 16:36 Calcium 9.0 mg/dL (8.5-10.1) 09/11/18 05:00 Corrected Calcium 10.5 mg/dL (8.5-10.1) H 09/11/18 05:00 Magnesium 1.2 mg/dL (1.7-2.9) L 09/07/18 05:17 Total Bilirubin 0.40 mg/dL (0.2-1.0) 09/11/18 05:00 AST 12 Units/L (15-37) L 09/11/18 05:00 ALT 17 Units/L (12-78) 09/11/18 05:00 Alkaline Phosphatase 69 Units/L (46-116) 09/11/18 05:00 Creatine Kinase 321 Units/L (39-308) H 09/05/18 07:00 CK-MB (CK-2) 1.2 ng/mL (0-4.0) 09/05/18 07:00 CK/CKMB % Calc 0.4 % (<4) 09/05/18 07:00 Troponin I < 0.02 ng/mL (0-1.5) 09/05/18 07:00 Total Protein 5.0 g/dL (6.4-8.2) L 09/11/18 05:00 Albumin 2.1 g/dL (3.4-5.0) L 09/11/18 05:00 Globulin 2.9 g/dL (2.5-4.5) 09/11/18 05:00 Albumin/Globulin Ratio 0.7 Ratio (1.1-2.1) L 09/11/18 05:00 Triglycerides 185 mg/dL (0-150) H 09/05/18 07:00 Cholesterol 83 mg/dL (0-200) 09/05/18 07:00 LDL Cholesterol, Calc 37 mg/dL (0-100) 09/05/18 07:00 HDL Cholesterol 9 mg/dL (40-60) L 09/05/18 07:00 Cholesterol/HDL Ratio 9.2 (0.0-5.0) H 09/05/18 07:00 Alpha Fetoprotein 1 ng/mL (0-9) 09/06/18 05:15 Total PSA 0.81 ng/mL (0.13-4.0) 09/06/18 05:15 HCG, Quant < 1 mIU/mL 09/06/18 05:15 Specimen Type Clean catch urine 09/04/18 17:24 Urine Color Dark yellow (YELLOW) 09/04/18 17:24 Urine Appearance Cloudy (CLEAR) 09/04/18 17:24 Urine pH 6.0 (5.0 - 8.0) 09/04/18 17:24 Ur Specific [place] 1.010 (1.000-1.030) 09/04/18 17:24 Urine Protein 2+ (NEGATIVE) 09/04/18 17:24 Urine Glucose (UA) Negative (NEGATIVE) 09/04/18 17:24 Urine Ketones 2+ (NEGATIVE) 09/04/18 17:24 Urine Occult Blood 5+ (NEGATIVE) 09/04/18 17:24 Urine Nitrite Positive (NEGATIVE) 09/04/18 17:24 Urine Bilirubin Negative (NEGATIVE) 09/04/18 17:24 Urine Urobilinogen 1+ (NORMAL) 09/04/18 17:24 Ur Leukocyte Esterase 2+ (NEGATIVE) 09/04/18 17:24 Urine RBC 3-5 /HPF (NONE SEEN) 09/04/18 17:24 Urine WBC Tntc /HPF (NONE SEEN) 09/04/18 17:24 Ur Squamous Epith Cells Negative /HPF (NEGATIVE) 09/04/18 17:24 Urine Bacteria 4+ /HPF (NEGATIVE) 09/04/18 17:24 Ur Culture Indicated? Yes/culture set up 09/04/18 17:24 Stool Description Ifob 09/11/18 14:45 Stl Occult Blood (IFOB) Positive (NEGATIVE) A 09/11/18 14:45 Blood Type AB POSITIVE 09/11/18 10:17 Antibody Screen Negative 09/11/18 10:17 Crossmatch See Detail 09/11/18 10:17 - Plan (1) UTI (urinary tract infection) with pyuria Status: Acute Plan: IV FLUIDS, INVANZ 1G IV DAILY, CONTINUE TO MONITOR (2) Leukocytosis Status: Acute Qualifiers: Leukocytosis type: unspecified Qualified Code(s): D72.829 - Elevated white blood cell count, unspecified (3) Generalized weakness Status: Acute (4) Acute pain of left hip Status: Resolved (5) Testicular/scrotal pain Status: Acute Plan: CONTINUE TO MONITOR (6) COPD (chronic obstructive pulmonary disease) Status: Chronic Qualifiers: COPD type: unspecified COPD Qualified Code(s): J44.9 - Chronic obstructive pulmonary disease, unspecified (7) Anemia Status: Acute Qualifiers: Anemia type: iron deficiency Iron deficiency anemia type: chronic blood loss Qualified Code(s): D50.0 - Iron deficiency anemia secondary to blood loss (chronic) Plan: TRANSFUSE 2 UNITS PRBC, CONSULT GI
[2018-09-11] MEDS: COLACE CAP 100 MG PO SCH (21:00)
[2018-09-11] MEDS: DESYREL PO SCH (21:12)
[2018-09-11] MEDS: FLOMAX PO SCH (21:13)
[2018-09-12 00:40] LABS: HEMATOCRIT 26.2 % (42.0-54.0)
[2018-09-12] MEDS: NS 1000 ML 1,000 ML IV SCH (04:36)
[2018-09-12 05:07] LABS: BASOPHILS % (AUTO) 0.4 % (0.2-1.0); EOSINOPHILS % (AUTO) 0.3 % (0.9-2.9); HEMATOCRIT 28.6 % (42.0-54.0); HEMOGLOBIN 9.6 g/dL (13.5-18.0); LYMPHOCYTES # (AUTO) 1.1 X10^3/uL (1.3-2.9); LYMPHOCYTES % (AUTO) 8.1 % (21.0-51.0); MEAN CORPUSCULAR HGB CONC 33.6 g/dL (33.0-35.0); MEAN CORPUSCULAR VOLUME 98.2 fL (80.0-100.0); MEAN PLATELET VOLUME 7.3 fL (7.4-11.0); MONOCYTES # (AUTO) 1.1 x10^3/uL (0.3-0.8); MONOCYTES % (AUTO) 8.2 % (0.0-13.0); NEUTROPHILS # (AUTO) 11.3 x10^3/uL (2.2-4.8); PLATELET COUNT 663 X10^3/uL (150.0-450.0); RED BLOOD COUNT 2.91 X10^6/uL (4.7-6.0); RED CELL DISTRIBUTION WIDTH 14.9 % (11.6-16.5); WHITE BLOOD COUNT 13.6 X10^3/uL (3.6-10.0)
[2018-09-12 05:21] LABS: ALANINE AMINOTRANSFERASE 24 Units/L (12-78); ALBUMIN 2.5 g/dL (3.4-5.0); ALKALINE PHOSPHATASE 69 Units/L (46-116); ASPARTATE AMINO TRANSFERASE 23 Units/L (15-37); BLOOD UREA NITROGEN 17 mg/dL (7-18); CALCIUM 9.5 mg/dL (8.5-10.1); CARBON DIOXIDE 25.9 mmol/L (21-32); CHLORIDE 106 mmol/L (98-107); COR CA(FOR HYPOALB) 10.7 mg/dL (8.5-10.1); CREATININE 1.21 mg/dL (0.70-1.30); SODIUM 139 mmol/L (136-145); TOTAL PROTEIN 5.5 g/dL (6.4-8.2); eGFR NON BLACK RACES > 60 (>60)
[2018-09-12] MEDS: ROXICODONE TAB 15 MG PO SCH ×3 (05:25→22:00)
[2018-09-12 05:27] LABS: HYPOCHROMASIA SLIGHT; PLATELET MORPHOLOGY COMMENT NORMAL (NORMAL)
[2018-09-12] MEDS: ALBUMIN HUMAN 25%- 100 ML 100 ML IV SCH (09:20)
[2018-09-12] MEDS: LEVSIN/MAALOX/LIDOC VISC PO SCH ×4 (09:20→20:25)
[2018-09-12] MEDS: PROTONIX INJ 40 MG VIAL IVP SCH ×2 (09:21→20:27)
[2018-09-12] MEDS: NICOTINE PATCH TD SCH (09:21)
[2018-09-12] MEDS: CYMBALTA PO SCH (09:21)
[2018-09-12] MEDS: SINGULAIR TAB 10 MG PO SCH (09:22)
[2018-09-12] MEDS: PEPCID 20 MG IV PREMIX* 20 MG/50 ML BAG IV SCH ×2 (09:22→20:27)
[2018-09-12] MEDS: INVANZ INJ 1 GM VIAL 1 GM in NS 100 ML IV + SPIKE MINIBAG* 100 ML IV SCH (09:22)
[2018-09-12] MEDS: MAG-OX TAB PO SCH ×2 (09:22→20:25)
[2018-09-12] MEDS: MILK OF MAGNESIA PO SCH ×2 (09:22→20:28)
[2018-09-12] MEDS: NEURONTIN CAP 300 MG PO SCH ×2 (09:22→20:24)
[2018-09-12] MEDS: LOVENOX INJ 40 MG SYR SC SCH (10:48)
[2018-09-12] MEDS: CHECK PATCH XX SCH ×2 (10:49→20:26)
[2018-09-12 16:12] LABS: BILIRUBIN,URINE NEGATIVE (NEGATIVE); BLOOD/HEMOGLOBIN,URINE 1+ (NEGATIVE); GLUCOSE, URINE NEGATIVE (NEGATIVE); KETONES,URINE NEGATIVE (NEGATIVE); LEUKOCYTE ESTERASE ,URINE 1+ (NEGATIVE); NITRITES,URINE NEGATIVE (NEGATIVE); PROTEIN,URINE 2+ (NEGATIVE); UROBILINOGEN,URINE NORMAL (NORMAL)
[2018-09-12 16:18] LABS: APPEARANCE,URINE CLEAR (CLEAR); COLOR,URINE YELLOW (YELLOW); RBC,URINE 0-2 /HPF (NONE SEEN)
[2018-09-12 16:19] LABS: BACTERIA,URINE TRACE /HPF (NEGATIVE); MUCUS,URINE FEW /HPF (NEGATIVE); SQUAMOUS EPITHELIAL CELL,UR NEGATIVE /HPF (NEGATIVE)
--- NOTE | 2018-09-12 20:06 | PCM.PROG ---
Progress Note - Progress Note for Day of Date of Exam: 09/12/18 - Subjective Subjective: WAS ADMITTED FOR UTI, LEUKOCYTOSIS, GENERALIZED WEAKNESS, AND LEFT HIP PAIN. WE FOUND A LESION TO THE TESTICLE FOR WHICH HE WILL REQUIRE A UROLOGY CONSULT AFTER DISCHARGE. URINE AND BLOOD CULTURES WERE POSITIVE FOR GROWTH OF E.COLI. HE RECEIVED TWO UNITS OF PACKED RED BLOOD CELLS YESTERDAY. TODAY, HE IS ALERT AND ORIENTED, LYING IN BED ON MORNING ROUNDS. HE CONTINUES WITH GENERALIZED WEAKNESS TODAY. ON EXAMINATION, HEART IS REGULAR IN RATE AND RHYTHM. BILATERAL LUNGS ARE NOTED WITH SCATTERED WHEEZING. ABDOMEN IS ROUND, SOFT, AND NOTED WITH MILD SUPRAPUBIC TENDERNESS. HIS VITALS THIS MORNING ARE 97.8-90-18-94%-118/77. LABS WERE OBTAINED. ABNORMAL LAB VALUES INCLUDE THE [place]: WBC 13.6, RBC 2.91, HGB 9.6, HCT 28.6, PLT COUNT 663, GLUCOSE 105, TOTAL PROTEIN 5.5, ALBUMIN 2.5. WE CONSULTED . HE PLANS FOR AN EGD TOMORROW MORNING. HE IS CURRENTLY RECEIVING INVANZ 1G IV DAILY. OTHERWISE, WE WILL CONTINUE WITH CURRENT PLAN OF CARE. WE WILL FOLLOW UP WITH AM LABS AND CONTINUE TO MONITOR. - Past Medical Family Social History Past Med/Fam/Surg Hx: No changes since H&P Allergies: Allergies No Known Drug Allergies Allergy (Verified 09/04/18 13:24) - Review of Systems ROS: No change since H&P - Vital Signs and I&O's Vital Signs: Temperature 98.1 F Pulse Rate [Left Radial] 88 Pulse Rate 116 Respiratory Rate 18 Blood Pressure [Left Arm] 102/70 Blood Pressure [Right Arm] 90/54 Blood Pressure 135/86 O2 Sat by Pulse Oximetry 100 Intake and Output: Intake & Output 09/10/18 09/11/18 09/12/18 09/13/18 11:59 11:59 11:59 11:59 Intake Total 3680 / 3680 1560 / 1560 3985 / 3985 760 / 760 Output Total 2600 / 2600 525 / 525 1100 / 1100 Balance 1080 / 1080 1035 / 1035 2885 / 2885 760 / 760 - Physical Exam Oriented: Normal Eyes: Normal Ear: Normal Nose: Normal Throat: Normal Respiratory: Generalized, Diminished, Wheezes Cardiovascular: Edema : Other (SCROTAL PAIN) Auscultation: Bowel Sounds: Normal Palpation: Normal Tenderness: Normal Skin: Bruising Musculoskeletal: Normal Psychiatric: Normal Mood Description: Calm Affect: Normal Speech Pattern: Clear, Appropriate - Laboratory and Diagnostics Result Diagrams: 09/12/18 04:29 09/12/18 04:29 Labs: 09/10/18 13:18 Blood Blood Culture - Preliminary 09/10/18 14:05 Blood Blood Culture - Preliminary 09/04/18 16:36 Blood Blood Culture - Final Escherichia Coli 09/04/18 17:24 Urine,Clean Catch Urine Culture - Final Escherichia Coli Laboratory WBC 13.6 X10^3/uL (3.6-10.0) H 09/12/18 04:29 RBC 2.91 X10^6/uL (4.7-6.0) L 09/12/18 04:29 Hgb 9.6 g/dL (13.5-18.0) L 09/12/18 04:29 Hct 28.6 % (42.0-54.0) L 09/12/18 04:29 MCV 98.2 fL (80.0-100.0) 09/12/18 04:29 MCH 33.0 pg (27.0-34.0) 09/12/18 04:29 MCHC 33.6 g/dL (33.0-35.0) 09/12/18 04:29 RDW 14.9 % (11.6-16.5) 09/12/18 04:29 Plt Count 663 X10^3/uL (150.0-450.0) H 09/12/18 04:29 Plt Count Comment Increased (ADEQUATE) 09/12/18 04:29 MPV 7.3 fL (7.4-11.0) L 09/12/18 04:29 Neut % (Auto) 83.0 % (42.0-75.0) H 09/12/18 04:29 Lymph % (Auto) 8.1 % (21.0-51.0) L 09/12/18 04:29 [place] % (Auto) 8.2 % (0.0-13.0) 09/12/18 04:29 Eos % (Auto) 0.3 % (0.9-2.9) L 09/12/18 04:29 Baso % (Auto) 0.4 % (0.2-1.0) 09/12/18 04:29 Neut # (Auto) 11.3 x10^3/uL (2.2-4.8) H 09/12/18 04:29 Lymph # (Auto) 1.1 X10^3/uL (1.3-2.9) L 09/12/18 04:29 [place] # (Auto) 1.1 x10^3/uL (0.3-0.8) H 09/12/18 04:29 Eos # (Auto) 0.0 x10^3/uL (0.0-0.2) 09/12/18 04:29 Baso # (Auto) 0.0 X10^3/uL (0.0-0.1) 09/12/18 04:29 Absolute Nucleated RBC 0.0 /100WBC 09/12/18 04:29 Total Counted 100 09/10/18 04:50 Neutrophils % (Manual) 91 % (39-76) H 09/10/18 04:50 Lymphocytes % (Manual) 4 % (13-43) L 09/10/18 04:50 Monocytes % (Manual) 5 % (4-9) 09/10/18 04:50 Plt Morphology Comment Normal (NORMAL) 09/12/18 04:29 RBC Morphology Abnormal (NORMAL) 09/12/18 04:29 Hypochromasia Slight A 09/12/18 04:29 Sodium 139 mmol/L (136-145) 09/12/18 04:29 Corrected Sodium TNP 09/12/18 04:29 Potassium 4.9 mmol/L (3.5-5.1) 09/12/18 04:29 Chloride 106 mmol/L (98-107) 09/12/18 04:29 Carbon Dioxide 25.9 mmol/L (21-32) 09/12/18 04:29 BUN 17 mg/dL (7-18) 09/12/18 04:29 Creatinine 1.21 mg/dL (0.70-1.30) 09/12/18 04:29 Est GFR (MDRD) Af Amer > 60 (>60) 09/12/18 04:29 Est GFR (MDRD) Non-Af > 60 (>60) 09/12/18 04:29 Glucose 105 mg/dL (65-99) H 09/12/18 04:29 Lactic Acid 0.8 mmol/L (0.4-2.0) 09/04/18 16:36 Calcium 9.5 mg/dL (8.5-10.1) 09/12/18 04:29 Corrected Calcium 10.7 mg/dL (8.5-10.1) H 09/12/18 04:29 Magnesium 1.2 mg/dL (1.7-2.9) L 09/07/18 05:17 Total Bilirubin 0.40 mg/dL (0.2-1.0) 09/12/18 04:29 AST 23 Units/L (15-37) 09/12/18 04:29 ALT 24 Units/L (12-78) 09/12/18 04:29 Alkaline Phosphatase 69 Units/L (46-116) 09/12/18 04:29 Creatine Kinase 321 Units/L (39-308) H 09/05/18 07:00 CK-MB (CK-2) 1.2 ng/mL (0-4.0) 09/05/18 07:00 CK/CKMB % Calc 0.4 % (<4) 09/05/18 07:00 Troponin I < 0.02 ng/mL (0-1.5) 09/05/18 07:00 Total Protein 5.5 g/dL (6.4-8.2) L 09/12/18 04:29 Albumin 2.5 g/dL (3.4-5.0) L 09/12/18 04:29 Globulin 3.0 g/dL (2.5-4.5) 09/12/18 04:29 Albumin/Globulin Ratio 0.8 Ratio (1.1-2.1) L 09/12/18 04:29 Triglycerides 185 mg/dL (0-150) H 09/05/18 07:00 Cholesterol 83 mg/dL (0-200) 09/05/18 07:00 LDL Cholesterol, Calc 37 mg/dL (0-100) 09/05/18 07:00 HDL Cholesterol 9 mg/dL (40-60) L 09/05/18 07:00 Cholesterol/HDL Ratio 9.2 (0.0-5.0) H 09/05/18 07:00 Alpha Fetoprotein 1 ng/mL (0-9) 09/06/18 05:15 Total PSA 0.81 ng/mL (0.13-4.0) 09/06/18 05:15 HCG, Quant < 1 mIU/mL 09/06/18 05:15 Specimen Type Random urine 09/12/18 15:50 Urine Color Yellow (YELLOW) 09/12/18 15:50 Urine Appearance Clear (CLEAR) 09/12/18 15:50 Urine pH 5.0 (5.0 - 8.0) 09/12/18 15:50 Ur Specific [place] 1.015 (1.000-1.030) 09/12/18 15:50 Urine Protein 2+ (NEGATIVE) 09/12/18 15:50 Urine Glucose (UA) Negative (NEGATIVE) 09/12/18 15:50 Urine Ketones Negative (NEGATIVE) 09/12/18 15:50 Urine Occult Blood 1+ (NEGATIVE) 09/12/18 15:50 Urine Nitrite Negative (NEGATIVE) 09/12/18 15:50 Urine Bilirubin Negative (NEGATIVE) 09/12/18 15:50 Urine Urobilinogen Normal (NORMAL) 09/12/18 15:50 Ur Leukocyte Esterase 1+ (NEGATIVE) 09/12/18 15:50 Urine RBC 0-2 /HPF (NONE SEEN) 09/12/18 15:50 Urine WBC 3-5 /HPF (NONE SEEN) 09/12/18 15:50 Ur Squamous Epith Cells Negative /HPF (NEGATIVE) 09/12/18 15:50 Urine Bacteria Trace /HPF (NEGATIVE) 09/12/18 15:50 Urine Mucus Few /HPF (NEGATIVE) 09/12/18 15:50 Ur Culture Indicated? No/not indicated 09/12/18 15:50 Stool Description Ifob 09/11/18 14:45 Stl Occult Blood (IFOB) Positive (NEGATIVE) A 09/11/18 14:45 Blood Type AB POSITIVE 09/11/18 10:17 Antibody Screen Negative 09/11/18 10:17 Crossmatch See Detail 09/11/18 10:17 - Plan (1) UTI (urinary tract infection) with pyuria Status: Acute Plan: IV FLUIDS, INVANZ 1G IV DAILY, CONTINUE TO MONITOR (2) Leukocytosis Status: Acute Qualifiers: Leukocytosis type: unspecified Qualified Code(s): D72.829 - Elevated white blood cell count, unspecified (3) Generalized weakness Status: Acute (4) Acute pain of left hip Status: Resolved (5) Testicular/scrotal pain Status: Acute Plan: CONTINUE TO MONITOR (6) COPD (chronic obstructive pulmonary disease) Status: Chronic Qualifiers: COPD type: unspecified COPD Qualified Code(s): J44.9 - Chronic obstructive pulmonary disease, unspecified (7) Anemia Status: Acute Qualifiers: Anemia type: iron deficiency Iron deficiency anemia type: chronic blood loss Qualified Code(s): D50.0 - Iron deficiency anemia secondary to blood loss (chronic) Plan: EGD TOMORROW, CONTINUE TO MONITOR
[2018-09-12] MEDS: COLACE CAP 100 MG PO SCH (20:24)
[2018-09-12] MEDS: FLOMAX PO SCH (20:24)
[2018-09-12] MEDS: DESYREL PO SCH (20:24)
[2018-09-13] MEDS: ROXICODONE TAB 15 MG PO SCH (06:00)
[2018-09-13] MEDS: NS 1000 ML 1,000 ML IV SCH ×3 (06:00→18:08)
[2018-09-13 06:11] LABS: BASOPHILS # (AUTO) 0.1 X10^3/uL (0.0-0.1); EOSINOPHILS # (AUTO) 0.1 x10^3/uL (0.0-0.2); EOSINOPHILS % (AUTO) 0.5 % (0.9-2.9); HEMATOCRIT 27.2 % (42.0-54.0); HEMOGLOBIN 9.3 g/dL (13.5-18.0); LYMPHOCYTES # (AUTO) 0.9 X10^3/uL (1.3-2.9); LYMPHOCYTES % (AUTO) 6.7 % (21.0-51.0); MEAN CORPUSCULAR HEMOGLOBIN 33.2 pg (27.0-34.0); MEAN CORPUSCULAR HGB CONC 34.2 g/dL (33.0-35.0); MEAN CORPUSCULAR VOLUME 97.1 fL (80.0-100.0); MEAN PLATELET VOLUME 6.5 fL (7.4-11.0); MONOCYTES # (AUTO) 1.4 x10^3/uL (0.3-0.8); MONOCYTES % (AUTO) 9.8 % (0.0-13.0); NEUTROPHILS # (AUTO) 11.4 x10^3/uL (2.2-4.8); PLATELET COUNT 659 X10^3/uL (150.0-450.0); RED CELL DISTRIBUTION WIDTH 14.4 % (11.6-16.5); WHITE BLOOD COUNT 13.9 X10^3/uL (3.6-10.0)
[2018-09-13 06:18] LABS: ALANINE AMINOTRANSFERASE 27 Units/L (12-78); ALBUMIN 2.3 g/dL (3.4-5.0); ALKALINE PHOSPHATASE 69 Units/L (46-116); ASPARTATE AMINO TRANSFERASE 23 Units/L (15-37); BLOOD UREA NITROGEN 12 mg/dL (7-18); CALCIUM 9.5 mg/dL (8.5-10.1); CARBON DIOXIDE 26.5 mmol/L (21-32); CHLORIDE 107 mmol/L (98-107); COR CA(FOR HYPOALB) 10.9 mg/dL (8.5-10.1); CREATININE 1.08 mg/dL (0.70-1.30); SODIUM 140 mmol/L (136-145); TOTAL PROTEIN 5.3 g/dL (6.4-8.2); eGFR NON BLACK RACES > 60 (>60)
[2018-09-13 06:41] LABS: PLATELET MORPHOLOGY COMMENT NORMAL (NORMAL)
[2018-09-13] MEDS ORDERED: DIPRIVAN VIAL 20 ML ONE (09:30)
[2018-09-13] MEDS ORDERED: ROXICODONE TAB 15 MG PO PRN (09:58)
[2018-09-13] MEDS: ALBUMIN HUMAN 25%- 100 ML 100 ML IV SCH (10:03)
[2018-09-13] MEDS: PROTONIX INJ 40 MG VIAL IVP SCH ×2 (10:04→21:21)
[2018-09-13] MEDS: INVANZ INJ 1 GM VIAL 1 GM in NS 100 ML IV + SPIKE MINIBAG* 100 ML IV SCH (10:04)
[2018-09-13] MEDS: PEPCID 20 MG IV PREMIX* 20 MG/50 ML BAG IV SCH ×2 (10:06→21:21)
[2018-09-13] MEDS ORDERED: STERILE WATER IRRIGATION ONE (10:43)
[2018-09-13] MEDS ORDERED: BUTT CREAM (COMPOUND) ONE (11:41)
[2018-09-13] MEDS: LEVSIN/MAALOX/LIDOC VISC PO SCH ×4 (12:14→21:21)
[2018-09-13] MEDS: CHECK PATCH XX SCH ×2 (12:15→21:22)
[2018-09-13] MEDS: MAG-OX TAB PO SCH ×2 (12:27→21:17)
[2018-09-13] MEDS: CYMBALTA PO SCH (12:27)
[2018-09-13] MEDS: DIFLUCAN PO SCH (12:27)
[2018-09-13] MEDS: WELLBUTRIN XL 150 MG (DAILY) PO SCH (12:27)
[2018-09-13] MEDS: NEURONTIN CAP 300 MG PO SCH ×2 (12:27→21:17)
[2018-09-13] MEDS: NICOTINE PATCH TD SCH (12:28)
[2018-09-13] MEDS: MILK OF MAGNESIA PO SCH ×2 (14:09→21:23)
[2018-09-13] MEDS: SINGULAIR TAB 10 MG PO SCH (15:52)
[2018-09-13] MEDS: FLOMAX PO SCH (21:17)
[2018-09-13] MEDS: COLACE CAP 100 MG PO SCH (21:17)
[2018-09-13] MEDS: DESYREL PO SCH (21:17)
[2018-09-13] MEDS: ULTRAM PO PRN (21:32)
[2018-09-14 06:16] LABS: BASOPHILS # (AUTO) 0.1 X10^3/uL (0.0-0.1); BASOPHILS % (AUTO) 0.6 % (0.2-1.0); EOSINOPHILS % (AUTO) 0.3 % (0.9-2.9); HEMATOCRIT 27.6 % (42.0-54.0); HEMOGLOBIN 9.2 g/dL (13.5-18.0); LYMPHOCYTES # (AUTO) 1.1 X10^3/uL (1.3-2.9); LYMPHOCYTES % (AUTO) 8.1 % (21.0-51.0); MEAN CORPUSCULAR HEMOGLOBIN 32.5 pg (27.0-34.0); MEAN CORPUSCULAR HGB CONC 33.3 g/dL (33.0-35.0); MEAN CORPUSCULAR VOLUME 97.5 fL (80.0-100.0); MEAN PLATELET VOLUME 6.5 fL (7.4-11.0); MONOCYTES # (AUTO) 1.4 x10^3/uL (0.3-0.8); MONOCYTES % (AUTO) 10.1 % (0.0-13.0); NEUTROPHILS # (AUTO) 10.9 x10^3/uL (2.2-4.8); NEUTROPHILS % (AUTO) 80.9 % (42.0-75.0); PLATELET COUNT 656 X10^3/uL (150.0-450.0); RED BLOOD COUNT 2.83 X10^6/uL (4.7-6.0); RED CELL DISTRIBUTION WIDTH 14.4 % (11.6-16.5); WHITE BLOOD COUNT 13.5 X10^3/uL (3.6-10.0)
[2018-09-14 06:21] LABS: ALANINE AMINOTRANSFERASE 25 Units/L (12-78); ALBUMIN 2.4 g/dL (3.4-5.0); ALKALINE PHOSPHATASE 115 Units/L (46-116); ASPARTATE AMINO TRANSFERASE 18 Units/L (15-37); BLOOD UREA NITROGEN 10 mg/dL (7-18); CALCIUM 9.9 mg/dL (8.5-10.1); CARBON DIOXIDE 27.9 mmol/L (21-32); CHLORIDE 106 mmol/L (98-107); COR CA(FOR HYPOALB) 11.2 mg/dL (8.5-10.1); CREATININE 0.88 mg/dL (0.70-1.30); SODIUM 141 mmol/L (136-145); TOTAL PROTEIN 5.4 g/dL (6.4-8.2); eGFR NON BLACK RACES > 60 (>60)
[2018-09-14 07:10] LABS: PLATELET MORPHOLOGY COMMENT NORMAL (NORMAL)
--- NOTE | 2018-09-14 08:45 | PCM.PROG ---
Progress Note - Progress Note for Day of Date of Exam: 09/13/18 - Subjective Subjective: WAS ADMITTED FOR UTI, LEUKOCYTOSIS, GENERALIZED WEAKNESS, AND LEFT HIP PAIN. WE FOUND A LESION TO THE TESTICLE FOR WHICH HE WILL REQUIRE A UROLOGY CONSULT AFTER DISCHARGE. URINE AND BLOOD CULTURES WERE POSITIVE FOR GROWTH OF E.COLI. HE RECEIVED TWO UNITS OF PACKED RED BLOOD CELLS ON MONDAY DUE TO A HEMOGLOBIN OF 7.7. TODAY, HE IS ALERT AND ORIENTED, LYING IN BED ON MORNING ROUNDS. HE CONTINUES WITH GENERALIZED WEAKNESS TODAY. ON EXAMINATION, HEART IS REGULAR IN RATE AND RHYTHM. BILATERAL LUNGS ARE NOTED WITH SCATTERED WHEEZING. ABDOMEN IS ROUND, SOFT, AND NOTED WITH MILD SUPRAPUBIC TENDERNESS. HIS VITALS THIS MORNING ARE 99.8-97-16-97%-102/64. LABS WERE OBTAINED. ABNORMAL LAB VALUES INCLUDE THE FOLLOWING: WBC 13.9, RBC 2.80, HGB 9.3, HCT 27.2, PLT COUNT 659, GLUCOSE 101, TOTAL PROTEIN 5.3, ALBUMIN 2.3. WE CONSULTED . HE PLANS FOR AN EGD TODAY. HE IS CURRENTLY RECEIVING INVANZ 1G IV DAILY. OTHERWISE, WE WILL CONTINUE WITH CURRENT PLAN OF CARE. WE WILL FOLLOW UP WITH AM LABS AND CONTINUE TO MONITOR. - Past Medical Family Social History Past Med/Fam/Surg Hx: No changes since H&P Allergies: Allergies No Known Drug Allergies Allergy (Verified 09/04/18 13:24) - Review of Systems ROS: No change since H&P - Vital Signs and I&O's Vital Signs: Temperature 98.4 F Pulse Rate [Left Radial] 84 Pulse Rate 116 Respiratory Rate 18 Blood Pressure [Left Arm] 132/64 Blood Pressure [Right Arm] 90/54 Blood Pressure 135/86 O2 Sat by Pulse Oximetry 97 Intake and Output: Intake & Output 09/11/18 09/12/18 09/13/18 09/14/18 11:59 11:59 11:59 11:59 Intake Total 1560 / 1560 3985 / 3985 2100 / 2100 2120 / 2120 Output Total 525 / 525 1100 / 1100 350 / 350 850 / 850 Balance 1035 / 1035 2885 / 2885 1750 / 1750 1270 / 1270 - Physical Exam Oriented: Normal Eyes: Normal Ear: Normal Nose: Normal Throat: Normal Respiratory: Generalized, Diminished, Wheezes Cardiovascular: Edema : Other (SCROTAL PAIN) Auscultation: Bowel Sounds: Normal Palpation: Normal Tenderness: Normal Skin: Bruising Musculoskeletal: Normal Psychiatric: Normal Mood Description: Calm Affect: Normal Speech Pattern: Clear, Appropriate - Laboratory and Diagnostics Result Diagrams: 09/14/18 05:33 09/14/18 05:33 Labs: 09/10/18 13:18 Blood Blood Culture - Preliminary 09/10/18 14:05 Blood Blood Culture - Preliminary 09/04/18 16:36 Blood Blood Culture - Final Escherichia Coli 09/04/18 17:24 Urine,Clean Catch Urine Culture - Final Escherichia Coli Laboratory WBC 13.5 X10^3/uL (3.6-10.0) H 09/14/18 05:33 RBC 2.83 X10^6/uL (4.7-6.0) L 09/14/18 05:33 Hgb 9.2 g/dL (13.5-18.0) L 09/14/18 05:33 Hct 27.6 % (42.0-54.0) L 09/14/18 05:33 MCV 97.5 fL (80.0-100.0) 09/14/18 05:33 MCH 32.5 pg (27.0-34.0) 09/14/18 05:33 MCHC 33.3 g/dL (33.0-35.0) 09/14/18 05:33 RDW 14.4 % (11.6-16.5) 09/14/18 05:33 Plt Count 656 X10^3/uL (150.0-450.0) H 09/14/18 05:33 Plt Count Comment Increased (ADEQUATE) 09/14/18 05:33 MPV 6.5 fL (7.4-11.0) L 09/14/18 05:33 Neut % (Auto) 80.9 % (42.0-75.0) H 09/14/18 05:33 Lymph % (Auto) 8.1 % (21.0-51.0) L 09/14/18 05:33 [place] % (Auto) 10.1 % (0.0-13.0) 09/14/18 05:33 Eos % (Auto) 0.3 % (0.9-2.9) L 09/14/18 05:33 Baso % (Auto) 0.6 % (0.2-1.0) 09/14/18 05:33 Neut # (Auto) 10.9 x10^3/uL (2.2-4.8) H 09/14/18 05:33 Lymph # (Auto) 1.1 X10^3/uL (1.3-2.9) L 09/14/18 05:33 [place] # (Auto) 1.4 x10^3/uL (0.3-0.8) H 09/14/18 05:33 Eos # (Auto) 0.0 x10^3/uL (0.0-0.2) 09/14/18 05:33 Baso # (Auto) 0.1 X10^3/uL (0.0-0.1) 09/14/18 05:33 Absolute Nucleated RBC 0.0 /100WBC 09/14/18 05:33 Total Counted 100 09/10/18 04:50 Neutrophils % (Manual) 91 % (39-76) H 09/10/18 04:50 Lymphocytes % (Manual) 4 % (13-43) L 09/10/18 04:50 Monocytes % (Manual) 5 % (4-9) 09/10/18 04:50 Plt Morphology Comment Normal (NORMAL) 09/14/18 05:33 RBC Morphology Normal (NORMAL) 09/14/18 05:33 Hypochromasia Slight A 09/12/18 04:29 Sodium 141 mmol/L (136-145) 09/14/18 05:33 Corrected Sodium TNP 09/14/18 05:33 Potassium 4.3 mmol/L (3.5-5.1) 09/14/18 05:33 Chloride 106 mmol/L (98-107) 09/14/18 05:33 Carbon Dioxide 27.9 mmol/L (21-32) 09/14/18 05:33 BUN 10 mg/dL (7-18) 09/14/18 05:33 Creatinine 0.88 mg/dL (0.70-1.30) 09/14/18 05:33 Est GFR (MDRD) Af Amer > 60 (>60) 09/14/18 05:33 Est GFR (MDRD) Non-Af > 60 (>60) 09/14/18 05:33 Glucose 92 mg/dL (65-99) 09/14/18 05:33 Lactic Acid 0.8 mmol/L (0.4-2.0) 09/04/18 16:36 Calcium 9.9 mg/dL (8.5-10.1) 09/14/18 05:33 Corrected Calcium 11.2 mg/dL (8.5-10.1) H 09/14/18 05:33 Magnesium 1.2 mg/dL (1.7-2.9) L 09/07/18 05:17 Iron 10 ug/dL (50-175) L 09/13/18 11:04 TIBC 94 ug/dL (250-450) L 09/13/18 11:04 Ferritin 565 ng/mL (26-388) H 09/13/18 11:04 Total Bilirubin 0.50 mg/dL (0.2-1.0) 09/14/18 05:33 AST 18 Units/L (15-37) 09/14/18 05:33 ALT 25 Units/L (12-78) 09/14/18 05:33 Alkaline Phosphatase 115 Units/L (46-116) 09/14/18 05:33 Creatine Kinase 321 Units/L (39-308) H 09/05/18 07:00 CK-MB (CK-2) 1.2 ng/mL (0-4.0) 09/05/18 07:00 CK/CKMB % Calc 0.4 % (<4) 09/05/18 07:00 Troponin I < 0.02 ng/mL (0-1.5) 09/05/18 07:00 Total Protein 5.4 g/dL (6.4-8.2) L 09/14/18 05:33 Albumin 2.4 g/dL (3.4-5.0) L 09/14/18 05:33 Globulin 3.0 g/dL (2.5-4.5) 09/14/18 05:33 Albumin/Globulin Ratio 0.8 Ratio (1.1-2.1) L 09/14/18 05:33 Triglycerides 185 mg/dL (0-150) H 09/05/18 07:00 Cholesterol 83 mg/dL (0-200) 09/05/18 07:00 LDL Cholesterol, Calc 37 mg/dL (0-100) 09/05/18 07:00 HDL Cholesterol 9 mg/dL (40-60) L 09/05/18 07:00 Cholesterol/HDL Ratio 9.2 (0.0-5.0) H 09/05/18 07:00 Alpha Fetoprotein 1 ng/mL (0-9) 09/06/18 05:15 Total PSA 0.81 ng/mL (0.13-4.0) 09/06/18 05:15 Vitamin B12 572 pg/mL (193-986) 09/13/18 11:04 Folate 7.7 ng/mL (>8.6) L 09/13/18 11:04 HCG, Quant < 1 mIU/mL 09/06/18 05:15 Specimen Type Random urine 09/12/18 15:50 Urine Color Yellow (YELLOW) 09/12/18 15:50 Urine Appearance Clear (CLEAR) 09/12/18 15:50 Urine pH 5.0 (5.0 - 8.0) 09/12/18 15:50 Ur Specific [place] 1.015 (1.000-1.030) 09/12/18 15:50 Urine Protein 2+ (NEGATIVE) 09/12/18 15:50 Urine Glucose (UA) Negative (NEGATIVE) 09/12/18 15:50 Urine Ketones Negative (NEGATIVE) 09/12/18 15:50 Urine Occult Blood 1+ (NEGATIVE) 09/12/18 15:50 Urine Nitrite Negative (NEGATIVE) 09/12/18 15:50 Urine Bilirubin Negative (NEGATIVE) 09/12/18 15:50 Urine Urobilinogen Normal (NORMAL) 09/12/18 15:50 Ur Leukocyte Esterase 1+ (NEGATIVE) 09/12/18 15:50 Urine RBC 0-2 /HPF (NONE SEEN) 09/12/18 15:50 Urine WBC 3-5 /HPF (NONE SEEN) 09/12/18 15:50 Ur Squamous Epith Cells Negative /HPF (NEGATIVE) 09/12/18 15:50 Urine Bacteria Trace /HPF (NEGATIVE) 09/12/18 15:50 Urine Mucus Few /HPF (NEGATIVE) 09/12/18 15:50 Ur Culture Indicated? No/not indicated 09/12/18 15:50 Stool Description Ifob 09/11/18 14:45 Stl Occult Blood (IFOB) Positive (NEGATIVE) A 09/11/18 14:45 Tissue Pathology To follow 09/13/18 09:41 Blood Type AB POSITIVE 09/11/18 10:17 Antibody Screen Negative 09/11/18 10:17 Crossmatch See Detail 09/11/18 10:17 - Plan (1) UTI (urinary tract infection) with pyuria Status: Acute Plan: IV FLUIDS, INVANZ 1G IV DAILY, CONTINUE TO MONITOR (2) Leukocytosis Status: Acute Qualifiers: Leukocytosis type: unspecified Qualified Code(s): D72.829 - Elevated white blood cell count, unspecified (3) Generalized weakness Status: Acute (4) Acute pain of left hip Status: Resolved (5) Testicular/scrotal pain Status: Acute Plan: CONTINUE TO MONITOR (6) COPD (chronic obstructive pulmonary disease) Status: Chronic Qualifiers: COPD type: unspecified COPD Qualified Code(s): J44.9 - Chronic obstructive pulmonary disease, unspecified (7) Anemia Status: Acute Qualifiers: Anemia type: iron deficiency Iron deficiency anemia type: chronic blood loss Qualified Code(s): D50.0 - Iron deficiency anemia secondary to blood loss (chronic) Plan: EGD TODAY, CONTINUE TO MONITOR
[2018-09-14] MEDS: WELLBUTRIN XL 150 MG (DAILY) PO SCH (09:26)
[2018-09-14] MEDS: MAG-OX TAB PO SCH (09:26)
[2018-09-14] MEDS: NS 1000 ML 1,000 ML IV SCH (09:26)
[2018-09-14] MEDS: PROTONIX INJ 40 MG VIAL IVP SCH ×2 (09:26→22:20)
[2018-09-14] MEDS: PEPCID 20 MG IV PREMIX* 20 MG/50 ML BAG IV SCH ×2 (09:26→22:20)
[2018-09-14] MEDS: SINGULAIR TAB 10 MG PO SCH (09:26)
[2018-09-14] MEDS: NICOTINE PATCH TD SCH (09:26)
[2018-09-14] MEDS: NEURONTIN CAP 300 MG PO SCH ×2 (09:27→22:21)
[2018-09-14] MEDS: CYMBALTA PO SCH (09:27)
[2018-09-14] MEDS: MILK OF MAGNESIA PO SCH ×2 (09:27→22:20)
[2018-09-14] MEDS: INVANZ INJ 1 GM VIAL 1 GM in NS 100 ML IV + SPIKE MINIBAG* 100 ML IV SCH (09:27)
[2018-09-14] MEDS: LEVSIN/MAALOX/LIDOC VISC PO SCH ×4 (09:27→22:20)
[2018-09-14] MEDS: DIFLUCAN PO SCH (09:27)
[2018-09-14] MEDS: CHECK PATCH XX SCH ×2 (09:28→22:22)
[2018-09-14] MEDS: ALBUMIN HUMAN 25%- 100 ML 100 ML IV SCH (09:28)
[2018-09-14] MEDS: TYLENOL 325 MG TAB PO PRN (11:20)
[2018-09-14] MEDS: NYSTATIN SUSP MT SCH ×4 (11:20→22:21)
[2018-09-14] MEDS ORDERED: MAG-OX TAB PO PRN (12:48)
[2018-09-14] MEDS: COLACE CAP 100 MG PO SCH (22:20)
[2018-09-14] MEDS: DESYREL PO SCH (22:21)
[2018-09-14] MEDS: FLOMAX PO SCH (22:21)
--- NOTE | 2018-09-14 23:52 | PCM.PROG ---
Progress Note - Progress Note for Day of Date of Exam: 09/14/18 - Subjective Subjective: WAS ADMITTED FOR UTI, LEUKOCYTOSIS, GENERALIZED WEAKNESS, AND LEFT HIP PAIN. WE FOUND A LESION TO THE TESTICLE FOR WHICH HE WILL REQUIRE A UROLOGY CONSULT AFTER DISCHARGE. URINE AND BLOOD CULTURES WERE POSITIVE FOR GROWTH OF E.COLI. HE RECEIVED TWO UNITS OF PACKED RED BLOOD CELLS ON MONDAY DUE TO A HEMOGLOBIN OF 7.7. TODAY, HE IS ALERT AND ORIENTED, LYING IN BED ON MORNING ROUNDS. HE CONTINUES WITH GENERALIZED WEAKNESS TODAY. ON EXAMINATION, HEART IS REGULAR IN RATE AND RHYTHM. BILATERAL LUNGS ARE NOTED WITH SCATTERED WHEEZING. ABDOMEN IS ROUND, SOFT, AND NOTED WITH MILD SUPRAPUBIC TENDERNESS. HIS VITALS THIS MORNING ARE 99.4-100-18-98%-132/84. LABS WERE OBTAINED. ABNORMAL LAB VALUES INCLUDE THE FOLLOWING: WBC 13.5, RBC 2.83, HGB 9.2, HCT 27.6, PLT COUNT 656, TOTAL PROTEIN 5.4, ALBUMIN 2.4. TOOK PATIENT TO THE OR FOR AN EGD YESTERDAY. POSTENDOSCOPY DIAGNOSES INCLUDED CANDID ESOPHAGITIS. HE STARTED PATIENT ON DIFLUCAN 100MG PO DAILY. HE IS CURRENTLY RECEIVING INVANZ 1G IV DAILY WELL. WE WILL CONTINUE WITH CURRENT PLAN OF CARE TODAY AND START NYSTATIN 5ML PO QID. OTHERWISE, WE WILL FOLLOW UP WITH AM LABS AND CONTINUE TO MONITOR. - Past Medical Family Social History Past Med/Fam/Surg Hx: No changes since H&P Allergies: Allergies No Known Drug Allergies Allergy (Verified 09/04/18 13:24) - Review of Systems ROS: No change since H&P - Vital Signs and I&O's Vital Signs: Temperature 98.9 F Pulse Rate [Left Radial] 87 Pulse Rate 116 Respiratory Rate 22 Blood Pressure [Left Arm] 162/59 Blood Pressure [Right Arm] 90/54 Blood Pressure 135/86 O2 Sat by Pulse Oximetry 99 Intake and Output: Intake & Output 09/12/18 09/13/18 09/14/18 09/15/18 11:59 11:59 11:59 11:59 Intake Total 3985 / 3985 2100 / 2100 2120 / 2120 1150 / 1150 Output Total 1100 / 1100 350 / 350 850 / 850 Balance 2885 / 2885 1750 / 1750 1270 / 1270 1150 / 1150 - Physical Exam Oriented: Normal Eyes: Normal Ear: Normal Nose: Normal Throat: Normal Respiratory: Generalized, Diminished, Wheezes Cardiovascular: Edema : Other (SCROTAL PAIN) Auscultation: Bowel Sounds: Normal Tenderness: Normal Skin: Bruising Musculoskeletal: Normal Psychiatric: Normal Mood Description: Calm Affect: Normal Speech Pattern: Clear, Appropriate - Laboratory and Diagnostics Result Diagrams: 09/14/18 05:33 09/14/18 05:33 Labs: 09/10/18 13:18 Blood Blood Culture - Preliminary 09/10/18 14:05 Blood Blood Culture - Preliminary 09/04/18 16:36 Blood Blood Culture - Final Escherichia Coli 09/04/18 17:24 Urine,Clean Catch Urine Culture - Final Escherichia Coli Laboratory WBC 13.5 X10^3/uL (3.6-10.0) H 09/14/18 05:33 RBC 2.83 X10^6/uL (4.7-6.0) L 09/14/18 05:33 Hgb 9.2 g/dL (13.5-18.0) L 09/14/18 05:33 Hct 27.6 % (42.0-54.0) L 09/14/18 05:33 MCV 97.5 fL (80.0-100.0) 09/14/18 05:33 MCH 32.5 pg (27.0-34.0) 09/14/18 05:33 MCHC 33.3 g/dL (33.0-35.0) 09/14/18 05:33 RDW 14.4 % (11.6-16.5) 09/14/18 05:33 Plt Count 656 X10^3/uL (150.0-450.0) H 09/14/18 05:33 Plt Count Comment Increased (ADEQUATE) 09/14/18 05:33 MPV 6.5 fL (7.4-11.0) L 09/14/18 05:33 Neut % (Auto) 80.9 % (42.0-75.0) H 09/14/18 05:33 Lymph % (Auto) 8.1 % (21.0-51.0) L 09/14/18 05:33 [place] % (Auto) 10.1 % (0.0-13.0) 09/14/18 05:33 Eos % (Auto) 0.3 % (0.9-2.9) L 09/14/18 05:33 Baso % (Auto) 0.6 % (0.2-1.0) 09/14/18 05:33 Neut # (Auto) 10.9 x10^3/uL (2.2-4.8) H 09/14/18 05:33 Lymph # (Auto) 1.1 X10^3/uL (1.3-2.9) L 09/14/18 05:33 [place] # (Auto) 1.4 x10^3/uL (0.3-0.8) H 09/14/18 05:33 Eos # (Auto) 0.0 x10^3/uL (0.0-0.2) 09/14/18 05:33 Baso # (Auto) 0.1 X10^3/uL (0.0-0.1) 09/14/18 05:33 Absolute Nucleated RBC 0.0 /100WBC 09/14/18 05:33 Total Counted 100 09/10/18 04:50 Neutrophils % (Manual) 91 % (39-76) H 09/10/18 04:50 Lymphocytes % (Manual) 4 % (13-43) L 09/10/18 04:50 Monocytes % (Manual) 5 % (4-9) 09/10/18 04:50 Plt Morphology Comment Normal (NORMAL) 09/14/18 05:33 RBC Morphology Normal (NORMAL) 09/14/18 05:33 Hypochromasia Slight A 09/12/18 04:29 Sodium 141 mmol/L (136-145) 09/14/18 05:33 Corrected Sodium TNP 09/14/18 05:33 Potassium 4.3 mmol/L (3.5-5.1) 09/14/18 05:33 Chloride 106 mmol/L (98-107) 09/14/18 05:33 Carbon Dioxide 27.9 mmol/L (21-32) 09/14/18 05:33 BUN 10 mg/dL (7-18) 09/14/18 05:33 Creatinine 0.88 mg/dL (0.70-1.30) 09/14/18 05:33 Est GFR (MDRD) Af Amer > 60 (>60) 09/14/18 05:33 Est GFR (MDRD) Non-Af > 60 (>60) 09/14/18 05:33 Glucose 92 mg/dL (65-99) 09/14/18 05:33 Lactic Acid 0.8 mmol/L (0.4-2.0) 09/04/18 16:36 Calcium 9.9 mg/dL (8.5-10.1) 09/14/18 05:33 Corrected Calcium 11.2 mg/dL (8.5-10.1) H 09/14/18 05:33 Magnesium 1.2 mg/dL (1.7-2.9) L 09/07/18 05:17 Iron 10 ug/dL (50-175) L 09/13/18 11:04 TIBC 94 ug/dL (250-450) L 09/13/18 11:04 Ferritin 565 ng/mL (26-388) H 09/13/18 11:04 Total Bilirubin 0.50 mg/dL (0.2-1.0) 09/14/18 05:33 AST 18 Units/L (15-37) 09/14/18 05:33 ALT 25 Units/L (12-78) 09/14/18 05:33 Alkaline Phosphatase 115 Units/L (46-116) 09/14/18 05:33 Creatine Kinase 321 Units/L (39-308) H 09/05/18 07:00 CK-MB (CK-2) 1.2 ng/mL (0-4.0) 09/05/18 07:00 CK/CKMB % Calc 0.4 % (<4) 09/05/18 07:00 Troponin I < 0.02 ng/mL (0-1.5) 09/05/18 07:00 Total Protein 5.4 g/dL (6.4-8.2) L 09/14/18 05:33 Albumin 2.4 g/dL (3.4-5.0) L 09/14/18 05:33 Globulin 3.0 g/dL (2.5-4.5) 09/14/18 05:33 Albumin/Globulin Ratio 0.8 Ratio (1.1-2.1) L 09/14/18 05:33 Triglycerides 185 mg/dL (0-150) H 09/05/18 07:00 Cholesterol 83 mg/dL (0-200) 09/05/18 07:00 LDL Cholesterol, Calc 37 mg/dL (0-100) 09/05/18 07:00 HDL Cholesterol 9 mg/dL (40-60) L 09/05/18 07:00 Cholesterol/HDL Ratio 9.2 (0.0-5.0) H 09/05/18 07:00 Alpha Fetoprotein 1 ng/mL (0-9) 09/06/18 05:15 Total PSA 0.81 ng/mL (0.13-4.0) 09/06/18 05:15 Vitamin B12 572 pg/mL (193-986) 09/13/18 11:04 Folate 7.7 ng/mL (>8.6) L 09/13/18 11:04 HCG, Quant < 1 mIU/mL 09/06/18 05:15 Specimen Type Random urine 09/12/18 15:50 Urine Color Yellow (YELLOW) 09/12/18 15:50 Urine Appearance Clear (CLEAR) 09/12/18 15:50 Urine pH 5.0 (5.0 - 8.0) 09/12/18 15:50 Ur Specific [place] 1.015 (1.000-1.030) 09/12/18 15:50 Urine Protein 2+ (NEGATIVE) 09/12/18 15:50 Urine Glucose (UA) Negative (NEGATIVE) 09/12/18 15:50 Urine Ketones Negative (NEGATIVE) 09/12/18 15:50 Urine Occult Blood 1+ (NEGATIVE) 09/12/18 15:50 Urine Nitrite Negative (NEGATIVE) 09/12/18 15:50 Urine Bilirubin Negative (NEGATIVE) 09/12/18 15:50 Urine Urobilinogen Normal (NORMAL) 09/12/18 15:50 Ur Leukocyte Esterase 1+ (NEGATIVE) 09/12/18 15:50 Urine RBC 0-2 /HPF (NONE SEEN) 09/12/18 15:50 Urine WBC 3-5 /HPF (NONE SEEN) 09/12/18 15:50 Ur Squamous Epith Cells Negative /HPF (NEGATIVE) 09/12/18 15:50 Urine Bacteria Trace /HPF (NEGATIVE) 09/12/18 15:50 Urine Mucus Few /HPF (NEGATIVE) 09/12/18 15:50 Ur Culture Indicated? No/not indicated 09/12/18 15:50 Stool Description Ifob 09/11/18 14:45 Stl Occult Blood (IFOB) Positive (NEGATIVE) A 09/11/18 14:45 Tissue Pathology To follow 09/13/18 09:41 Blood Type AB POSITIVE 09/11/18 10:17 Antibody Screen Negative 09/11/18 10:17 Crossmatch See Detail 09/11/18 10:17 - Plan (1) UTI (urinary tract infection) with pyuria Status: Acute Plan: IV FLUIDS, INVANZ 1G IV DAILY, CONTINUE TO MONITOR (2) Leukocytosis Status: Acute Qualifiers: Leukocytosis type: unspecified Qualified Code(s): D72.829 - Elevated white blood cell count, unspecified (3) Generalized weakness Status: Acute (4) Acute pain of left hip Status: Resolved (5) Testicular/scrotal pain Status: Acute Plan: CONTINUE TO MONITOR (6) COPD (chronic obstructive pulmonary disease) Status: Chronic Qualifiers: COPD type: unspecified COPD Qualified Code(s): J44.9 - Chronic obstructive pulmonary disease, unspecified (7) Anemia Status: Acute Qualifiers: Anemia type: iron deficiency Iron deficiency anemia type: chronic blood loss Qualified Code(s): D50.0 - Iron deficiency anemia secondary to blood loss (chronic) Plan: CONTINUE TO MONITOR (8) Vidhi esophagitis Status: Acute Plan: DIFLUCAN 100MG PO DAILY, NYSTATIN SWISH AND SWALLOW 5ML PO QID, CONTINUE TO MONITOR
[2018-09-15] MEDS: NS 1000 ML 1,000 ML IV SCH ×2 (04:50→23:01)
[2018-09-15] MEDS: TYLENOL 325 MG TAB PO PRN ×2 (05:01→19:27)
[2018-09-15] MEDS ORDERED: BUTT CREAM (COMPOUND) ONE (05:46)
[2018-09-15 06:31] LABS: BASOPHILS # (AUTO) 0.1 X10^3/uL (0.0-0.1); BASOPHILS % (AUTO) 0.7 % (0.2-1.0); EOSINOPHILS % (AUTO) 0.2 % (0.9-2.9); HEMATOCRIT 25.9 % (42.0-54.0); HEMOGLOBIN 8.7 g/dL (13.5-18.0); LYMPHOCYTES # (AUTO) 1.1 X10^3/uL (1.3-2.9); LYMPHOCYTES % (AUTO) 8.1 % (21.0-51.0); MEAN CORPUSCULAR HEMOGLOBIN 32.6 pg (27.0-34.0); MEAN CORPUSCULAR HGB CONC 33.6 g/dL (33.0-35.0); MEAN CORPUSCULAR VOLUME 97.2 fL (80.0-100.0); MEAN PLATELET VOLUME 6.2 fL (7.4-11.0); MONOCYTES # (AUTO) 1.6 x10^3/uL (0.3-0.8); MONOCYTES % (AUTO) 11.3 % (0.0-13.0); NEUTROPHILS % (AUTO) 79.7 % (42.0-75.0); PLATELET COUNT 632 X10^3/uL (150.0-450.0); RED BLOOD COUNT 2.66 X10^6/uL (4.7-6.0); RED CELL DISTRIBUTION WIDTH 13.9 % (11.6-16.5); WHITE BLOOD COUNT 13.9 X10^3/uL (3.6-10.0)
[2018-09-15 06:40] LABS: ALANINE AMINOTRANSFERASE 31 Units/L (12-78); ALBUMIN 2.2 g/dL (3.4-5.0); ALKALINE PHOSPHATASE 71 Units/L (46-116); ASPARTATE AMINO TRANSFERASE 27 Units/L (15-37); BLOOD UREA NITROGEN 8 mg/dL (7-18); CARBON DIOXIDE 27.6 mmol/L (21-32); CHLORIDE 105 mmol/L (98-107); COR CA(FOR HYPOALB) 11.4 mg/dL (8.5-10.1); CREATININE 0.98 mg/dL (0.70-1.30); SODIUM 141 mmol/L (136-145); TOTAL PROTEIN 5.3 g/dL (6.4-8.2); eGFR NON BLACK RACES > 60 (>60)
[2018-09-15 06:48] LABS: PLATELET MORPHOLOGY COMMENT NORMAL (NORMAL)
[2018-09-15] MEDS ORDERED: XYLOCAINE 1 % (PLAIN) ONE (09:03)
--- NOTE | 2018-09-15 09:42 | RAD ---
Examination: AP chest, two views History: Line placement Comparison 09/08/2018 Findings: There is a left subclavian line now present extending to the SVC. There is no evidence for pleural fluid or pneumothorax. Heart size is similar to before. No acute pulmonary or pleural lesion demonstrated. Impression: Apparently uncomplicated central line placement. Reported By:
[2018-09-15] MEDS: ALBUMIN HUMAN 25%- 100 ML 100 ML IV SCH (10:37)
[2018-09-15] MEDS: CHECK PATCH XX SCH ×2 (10:38→21:14)
[2018-09-15] MEDS: CYMBALTA PO SCH (10:39)
[2018-09-15] MEDS: WELLBUTRIN XL 150 MG (DAILY) PO SCH (10:40)
[2018-09-15] MEDS: PEPCID 20 MG IV PREMIX* 20 MG/50 ML BAG IV SCH ×2 (10:45→20:58)
[2018-09-15] MEDS: SINGULAIR TAB 10 MG PO SCH (10:45)
[2018-09-15] MEDS: PROTONIX INJ 40 MG VIAL IVP SCH ×2 (10:46→20:57)
[2018-09-15] MEDS: NICOTINE PATCH TD SCH (10:46)
[2018-09-15] MEDS: NYSTATIN SUSP MT SCH ×4 (10:46→21:13)
[2018-09-15] MEDS: LEVSIN/MAALOX/LIDOC VISC PO SCH ×4 (10:47→20:57)
[2018-09-15] MEDS: INVANZ INJ 1 GM VIAL 1 GM in NS 100 ML IV + SPIKE MINIBAG* 100 ML IV SCH (10:47)
[2018-09-15] MEDS: DIFLUCAN PO SCH (10:48)
--- NOTE | 2018-09-15 13:05 | CT ---
HISTORY: Confusion, weakness Study: CT brain without contrast Comparison: None Technique: Multiple axial images of the brain were obtained without administration of IV contrast. Dose reduction techniques including Automated Exposure Control (AEC) and adjustment of mA and kV were utilized. Findings: The brain parenchyma is within normal limits for patient's age. No evidence of acute hemorrhage, midline shift, mass effect or abnormal extra-axial fluid collection. The ventricular system is symmetric and nondilated. The soft tissues and osseous structures are unremarkable. The visualized paranasal sinuses are clear. IMPRESSION: 1.No acute intracranial abnormality. Reported By:
[2018-09-15] MEDS: MILK OF MAGNESIA PO SCH ×2 (13:50→21:14)
[2018-09-15] MEDS ORDERED: NYSTATIN POWDER ONE (14:04)
--- NOTE | 2018-09-15 16:32 | DR.PROGNOT ---
Hospital Progress Notes - Progress Note for Day of: Progress Note Date: 09/15/18 - Chief Complaint Chief Complaint: post op exploratory lap , lysis of adhesions, partial omentectomy, repair of large epigastric hernia . c/o mild SOB , no chest pain , no nausea or vomiting . mild drainage in NGT. - Past Medical Family Social History Past Med/Fam/Surg Hx: No changes since H&P Allergies: Allergies No Known Drug Allergies Allergy (Verified 09/04/18 13:24) - Review Of Systems ROS: No change since H&P - Vital Signs Vital Signs: Temperature 99.6 F Pulse Rate [Left Radial] 92 Pulse Rate 116 Respiratory Rate 18 Blood Pressure [Left Arm] 129/85 Blood Pressure [Right Arm] 90/54 Blood Pressure 135/86 O2 Sat by Pulse Oximetry 96 - Physical Exam Oriented: Normal Eyes: Normal Ear: Normal Nose: Normal Throat: Normal Respiratory: Generalized, Diminished, Wheezes Cardiovascular: Edema : Other (SCROTAL PAIN) GI:Auscultation: Decreased GI:Palpation: Normal GI: Tenderness: Normal (diffuse tenderness with moderate distention , BS+) Skin: Bruising Musculoskeletal: Normal Psychiatric: Normal Mood Description: Calm Affect: Normal Speech Pattern: Clear, Appropriate - Laboratory and Diagnostics Result Diagrams: 09/15/18 06:14 09/15/18 06:14 Labs: 09/10/18 14:05 Blood Blood Culture - Final 09/10/18 13:18 Blood Blood Culture - Final 09/04/18 16:36 Blood Blood Culture - Final Escherichia Coli 09/04/18 17:24 Urine,Clean Catch Urine Culture - Final Escherichia Coli Laboratory WBC 13.9 X10^3/uL (3.6-10.0) H 09/15/18 06:14 RBC 2.66 X10^6/uL (4.7-6.0) L 09/15/18 06:14 Hgb 8.7 g/dL (13.5-18.0) L 09/15/18 06:14 Hct 25.9 % (42.0-54.0) L 09/15/18 06:14 MCV 97.2 fL (80.0-100.0) 09/15/18 06:14 MCH 32.6 pg (27.0-34.0) 09/15/18 06:14 MCHC 33.6 g/dL (33.0-35.0) 09/15/18 06:14 RDW 13.9 % (11.6-16.5) 09/15/18 06:14 Plt Count 632 X10^3/uL (150.0-450.0) H 09/15/18 06:14 Plt Count Comment Increased (ADEQUATE) 09/15/18 06:14 MPV 6.2 fL (7.4-11.0) L 09/15/18 06:14 Neut % (Auto) 79.7 % (42.0-75.0) H 09/15/18 06:14 Lymph % (Auto) 8.1 % (21.0-51.0) L 09/15/18 06:14 [place] % (Auto) 11.3 % (0.0-13.0) 09/15/18 06:14 Eos % (Auto) 0.2 % (0.9-2.9) L 09/15/18 06:14 Baso % (Auto) 0.7 % (0.2-1.0) 09/15/18 06:14 Neut # (Auto) 11.0 x10^3/uL (2.2-4.8) H 09/15/18 06:14 Lymph # (Auto) 1.1 X10^3/uL (1.3-2.9) L 09/15/18 06:14 [place] # (Auto) 1.6 x10^3/uL (0.3-0.8) H 09/15/18 06:14 Eos # (Auto) 0.0 x10^3/uL (0.0-0.2) 09/15/18 06:14 Baso # (Auto) 0.1 X10^3/uL (0.0-0.1) 09/15/18 06:14 Absolute Nucleated RBC 0.0 /100WBC 09/15/18 06:14 Total Counted 100 09/10/18 04:50 Neutrophils % (Manual) 91 % (39-76) H 09/10/18 04:50 Lymphocytes % (Manual) 4 % (13-43) L 09/10/18 04:50 Monocytes % (Manual) 5 % (4-9) 09/10/18 04:50 Plt Morphology Comment Normal (NORMAL) 09/15/18 06:14 RBC Morphology Normal (NORMAL) 09/15/18 06:14 Hypochromasia Slight A 09/12/18 04:29 Sodium 141 mmol/L (136-145) 09/15/18 06:14 Corrected Sodium TNP 09/15/18 06:14 Potassium 4.3 mmol/L (3.5-5.1) 09/15/18 06:14 Chloride 105 mmol/L (98-107) 09/15/18 06:14 Carbon Dioxide 27.6 mmol/L (21-32) 09/15/18 06:14 BUN 8 mg/dL (7-18) 09/15/18 06:14 Creatinine 0.98 mg/dL (0.70-1.30) 09/15/18 06:14 Est GFR (MDRD) Af Amer > 60 (>60) 09/15/18 06:14 Est GFR (MDRD) Non-Af > 60 (>60) 09/15/18 06:14 Glucose 94 mg/dL (65-99) 09/15/18 06:14 Lactic Acid 0.8 mmol/L (0.4-2.0) 09/04/18 16:36 Calcium 10.0 mg/dL (8.5-10.1) 09/15/18 06:14 Corrected Calcium 11.4 mg/dL (8.5-10.1) H 09/15/18 06:14 Magnesium 1.2 mg/dL (1.7-2.9) L 09/07/18 05:17 Iron 10 ug/dL (50-175) L 09/13/18 11:04 TIBC 94 ug/dL (250-450) L 09/13/18 11:04 Ferritin 565 ng/mL (26-388) H 09/13/18 11:04 Total Bilirubin 0.50 mg/dL (0.2-1.0) 09/15/18 06:14 AST 27 Units/L (15-37) 09/15/18 06:14 ALT 31 Units/L (12-78) 09/15/18 06:14 Alkaline Phosphatase 71 Units/L (46-116) 09/15/18 06:14 Creatine Kinase 321 Units/L (39-308) H 09/05/18 07:00 CK-MB (CK-2) 1.2 ng/mL (0-4.0) 09/05/18 07:00 CK/CKMB % Calc 0.4 % (<4) 09/05/18 07:00 Troponin I < 0.02 ng/mL (0-1.5) 09/05/18 07:00 Total Protein 5.3 g/dL (6.4-8.2) L 09/15/18 06:14 Albumin 2.2 g/dL (3.4-5.0) L 09/15/18 06:14 Globulin 3.1 g/dL (2.5-4.5) 09/15/18 06:14 Albumin/Globulin Ratio 0.7 Ratio (1.1-2.1) L 09/15/18 06:14 Triglycerides 185 mg/dL (0-150) H 09/05/18 07:00 Cholesterol 83 mg/dL (0-200) 09/05/18 07:00 LDL Cholesterol, Calc 37 mg/dL (0-100) 09/05/18 07:00 HDL Cholesterol 9 mg/dL (40-60) L 09/05/18 07:00 Cholesterol/HDL Ratio 9.2 (0.0-5.0) H 09/05/18 07:00 Alpha Fetoprotein 1 ng/mL (0-9) 09/06/18 05:15 Total PSA 0.81 ng/mL (0.13-4.0) 09/06/18 05:15 Vitamin B12 572 pg/mL (193-986) 09/13/18 11:04 Folate 7.7 ng/mL (>8.6) L 09/13/18 11:04 HCG, Quant < 1 mIU/mL 09/06/18 05:15 Specimen Type Random urine 09/12/18 15:50 Urine Color Yellow (YELLOW) 09/12/18 15:50 Urine Appearance Clear (CLEAR) 09/12/18 15:50 Urine pH 5.0 (5.0 - 8.0) 09/12/18 15:50 Ur Specific [place] 1.015 (1.000-1.030) 09/12/18 15:50 Urine Protein 2+ (NEGATIVE) 09/12/18 15:50 Urine Glucose (UA) Negative (NEGATIVE) 09/12/18 15:50 Urine Ketones Negative (NEGATIVE) 09/12/18 15:50 Urine Occult Blood 1+ (NEGATIVE) 09/12/18 15:50 Urine Nitrite Negative (NEGATIVE) 09/12/18 15:50 Urine Bilirubin Negative (NEGATIVE) 09/12/18 15:50 Urine Urobilinogen Normal (NORMAL) 09/12/18 15:50 Ur Leukocyte Esterase 1+ (NEGATIVE) 09/12/18 15:50 Urine RBC 0-2 /HPF (NONE SEEN) 09/12/18 15:50 Urine WBC 3-5 /HPF (NONE SEEN) 09/12/18 15:50 Ur Squamous Epith Cells Negative /HPF (NEGATIVE) 09/12/18 15:50 Urine Bacteria Trace /HPF (NEGATIVE) 09/12/18 15:50 Urine Mucus Few /HPF (NEGATIVE) 09/12/18 15:50 Ur Culture Indicated? No/not indicated 09/12/18 15:50 Stool Description Ifob 09/11/18 14:45 Stl Occult Blood (IFOB) Positive (NEGATIVE) A 09/11/18 14:45 Tissue Pathology To follow 09/13/18 09:41 Blood Type AB POSITIVE 09/11/18 10:17 Antibody Screen Negative 09/11/18 10:17 Crossmatch See Detail 09/11/18 10:17 - Problem Patient Problems: Patient Problems UTI (urinary tract infection) with pyuria (Acute) N39.0 Leukocytosis (Acute) D72.829 Generalized weakness (Acute) R53.1 Acute pain of left hip (Resolved) M25.552 Fall (Acute) W19.XXXA Testicular/scrotal pain (Acute) COPD (chronic obstructive pulmonary disease) (Chronic) J44.9 Anemia (Acute) D64.9 Vidhi esophagitis (Acute) B37.81
[2018-09-15] MEDS: NYSTATIN POWDER TOP SCH ×2 (17:04→21:15)
[2018-09-15 18:12] LABS: HEMATOCRIT 25.7 % (42.0-54.0); HEMOGLOBIN 8.7 g/dL (13.5-18.0)
[2018-09-15] MEDS: LIBRIUM PO SCH ×2 (19:26→21:15)
[2018-09-15] MEDS: DESYREL PO SCH (20:57)
[2018-09-15] MEDS: FLOMAX PO SCH (20:58)
[2018-09-15] MEDS: COLACE CAP 100 MG PO SCH (20:58)
[2018-09-16] MEDS: TYLENOL 325 MG TAB PO PRN ×2 (00:22→21:11)
[2018-09-16 06:10] LABS: BASOPHILS # (AUTO) 0.1 X10^3/uL (0.0-0.1); BASOPHILS % (AUTO) 0.6 % (0.2-1.0); EOSINOPHILS # (AUTO) 0.1 x10^3/uL (0.0-0.2); EOSINOPHILS % (AUTO) 0.4 % (0.9-2.9); HEMATOCRIT 26.1 % (42.0-54.0); HEMOGLOBIN 8.6 g/dL (13.5-18.0); LYMPHOCYTES # (AUTO) 1.2 X10^3/uL (1.3-2.9); LYMPHOCYTES % (AUTO) 8.1 % (21.0-51.0); MEAN CORPUSCULAR HEMOGLOBIN 32.3 pg (27.0-34.0); MEAN CORPUSCULAR HGB CONC 32.9 g/dL (33.0-35.0); MEAN CORPUSCULAR VOLUME 98.2 fL (80.0-100.0); MEAN PLATELET VOLUME 6.7 fL (7.4-11.0); MONOCYTES # (AUTO) 1.9 x10^3/uL (0.3-0.8); MONOCYTES % (AUTO) 12.5 % (0.0-13.0); NEUTROPHILS # (AUTO) 11.6 x10^3/uL (2.2-4.8); NEUTROPHILS % (AUTO) 78.4 % (42.0-75.0); PLATELET COUNT 613 X10^3/uL (150.0-450.0); RED BLOOD COUNT 2.66 X10^6/uL (4.7-6.0); WHITE BLOOD COUNT 14.8 X10^3/uL (3.6-10.0)
[2018-09-16 06:25] LABS: ALANINE AMINOTRANSFERASE 34 Units/L (12-78); ALBUMIN 2.5 g/dL (3.4-5.0); ALKALINE PHOSPHATASE 65 Units/L (46-116); ASPARTATE AMINO TRANSFERASE 34 Units/L (15-37); BLOOD UREA NITROGEN 8 mg/dL (7-18); CALCIUM 10.2 mg/dL (8.5-10.1); CARBON DIOXIDE 27.2 mmol/L (21-32); CHLORIDE 104 mmol/L (98-107); COR CA(FOR HYPOALB) 11.4 mg/dL (8.5-10.1); SODIUM 140 mmol/L (136-145); TOTAL PROTEIN 5.6 g/dL (6.4-8.2); eGFR NON BLACK RACES > 60 (>60)
[2018-09-16 06:55] LABS: PLATELET MORPHOLOGY COMMENT NORMAL (NORMAL)
[2018-09-16] MEDS: INVANZ INJ 1 GM VIAL 1 GM in NS 100 ML IV + SPIKE MINIBAG* 100 ML IV SCH (09:23)
[2018-09-16] MEDS: ALBUMIN HUMAN 25%- 100 ML 100 ML IV SCH (09:25)
[2018-09-16] MEDS: PROTONIX INJ 40 MG VIAL IVP SCH ×2 (09:29→21:13)
[2018-09-16] MEDS: CHECK PATCH XX SCH ×2 (09:30→21:12)
[2018-09-16] MEDS: CYMBALTA PO SCH (09:30)
[2018-09-16] MEDS: NYSTATIN SUSP MT SCH ×4 (09:32→21:12)
[2018-09-16] MEDS: SINGULAIR TAB 10 MG PO SCH (09:32)
[2018-09-16] MEDS: WELLBUTRIN XL 150 MG (DAILY) PO SCH (09:32)
[2018-09-16] MEDS: NICOTINE PATCH TD SCH (09:33)
[2018-09-16] MEDS: LEVSIN/MAALOX/LIDOC VISC PO SCH ×4 (09:33→21:13)
[2018-09-16] MEDS: DIFLUCAN PO SCH (09:33)
[2018-09-16] MEDS: LIBRIUM PO SCH ×2 (09:33→21:12)
[2018-09-16] MEDS: NYSTATIN POWDER TOP SCH ×2 (12:27→21:18)
[2018-09-16] MEDS: PEPCID 20 MG IV PREMIX* 20 MG/50 ML BAG IV SCH ×2 (12:27→21:18)
[2018-09-16] MEDS: MILK OF MAGNESIA PO SCH ×2 (12:28→21:18)
[2018-09-16] MEDS: ULTRAM PO PRN (14:30)
[2018-09-16 17:51] LABS: HEMOGLOBIN 8.3 g/dL (13.5-18.0)
[2018-09-16] MEDS ORDERED: MICRO K EXTEN CAP 10 MEQ PO PRN (18:24)
[2018-09-16] MEDS ORDERED: POTASSIUM CHL 60 MEQ/NS 0.45% 500 ML IV PRN (18:24)
[2018-09-16] MEDS ORDERED: POTASSIUM CHL 40 MEQ/NS 0.45% 500 ML IV PRN (18:24)
[2018-09-16] MEDS ORDERED: POTASSIUM CHLORIDE LIQ 20 MEQ UDC PO PRN (18:24)
[2018-09-16] MEDS ORDERED: KLOR-CON PO PRN (18:24)
[2018-09-16] MEDS ORDERED: K-RIDER 10 MEQ/NS 100 ML 10 MEQ/100 ML BAG IV PRN (18:24)
[2018-09-16] MEDS: MAGNESIUM SULFATE 1 GRAM/100 mL PREMIX 1 GM/100 ML BAG IV PRN ×4 (19:28→23:48)
[2018-09-16] MEDS: COLACE CAP 100 MG PO SCH (21:12)
[2018-09-16] MEDS: FLOMAX PO SCH (21:12)
[2018-09-16] MEDS: DESYREL PO SCH (21:19)
[2018-09-17] MEDS ORDERED: TYLENOL SUPP 650 MG ONE (00:48)
[2018-09-17] MEDS: TYLENOL SUPP 650 MG PR PRN (01:06)
[2018-09-17 01:18] LABS: BILIRUBIN,URINE NEGATIVE (NEGATIVE); BLOOD/HEMOGLOBIN,URINE 1+ (NEGATIVE); GLUCOSE, URINE NEGATIVE (NEGATIVE); KETONES,URINE NEGATIVE (NEGATIVE); LEUKOCYTE ESTERASE ,URINE 1+ (NEGATIVE); NITRITES,URINE NEGATIVE (NEGATIVE); PROTEIN,URINE 3+ (NEGATIVE); UROBILINOGEN,URINE NORMAL (NORMAL)
[2018-09-17 01:30] LABS: APPEARANCE,URINE CLEAR (CLEAR); BACTERIA,URINE TRACE /HPF (NEGATIVE); COLOR,URINE DARK YELLOW (YELLOW); HYALINE CASTS, URINE RARE /LPF (NEGATIVE); MUCUS,URINE MODERATE /HPF (NEGATIVE); RBC,URINE 0-2 /HPF (NONE SEEN); SQUAMOUS EPITHELIAL CELL,UR RARE /HPF (NEGATIVE)
[2018-09-17] MEDS: NS 1000 ML 1,000 ML IV SCH ×2 (01:50→14:34)
[2018-09-17 06:25] LABS: BASOPHILS # (AUTO) 0.2 X10^3/uL (0.0-0.1); EOSINOPHILS # (AUTO) 0.1 x10^3/uL (0.0-0.2); EOSINOPHILS % (AUTO) 0.6 % (0.9-2.9); HEMATOCRIT 25.5 % (42.0-54.0); HEMOGLOBIN 8.6 g/dL (13.5-18.0); LYMPHOCYTES # (AUTO) 0.9 X10^3/uL (1.3-2.9); LYMPHOCYTES % (AUTO) 6.2 % (21.0-51.0); MEAN CORPUSCULAR HEMOGLOBIN 32.6 pg (27.0-34.0); MEAN CORPUSCULAR HGB CONC 33.6 g/dL (33.0-35.0); MEAN CORPUSCULAR VOLUME 96.8 fL (80.0-100.0); MEAN PLATELET VOLUME 6.4 fL (7.4-11.0); NEUTROPHILS # (AUTO) 12.5 x10^3/uL (2.2-4.8); NEUTROPHILS % (AUTO) 85.2 % (42.0-75.0); PLATELET COUNT 588 X10^3/uL (150.0-450.0); RED BLOOD COUNT 2.63 X10^6/uL (4.7-6.0); RED CELL DISTRIBUTION WIDTH 13.9 % (11.6-16.5); WHITE BLOOD COUNT 14.6 X10^3/uL (3.6-10.0)
[2018-09-17 06:55] LABS: ALANINE AMINOTRANSFERASE 28 Units/L (12-78); ALBUMIN 2.4 g/dL (3.4-5.0); ALKALINE PHOSPHATASE 62 Units/L (46-116); ASPARTATE AMINO TRANSFERASE 23 Units/L (15-37); BLOOD UREA NITROGEN 7 mg/dL (7-18); CALCIUM 10.2 mg/dL (8.5-10.1); CARBON DIOXIDE 27.6 mmol/L (21-32); CHLORIDE 105 mmol/L (98-107); COR CA(FOR HYPOALB) 11.5 mg/dL (8.5-10.1); CREATININE 1.17 mg/dL (0.70-1.30); MAGNESIUM 1.9 mg/dL (1.7-2.9); SODIUM 139 mmol/L (136-145); TOTAL PROTEIN 5.5 g/dL (6.4-8.2); eGFR NON BLACK RACES > 60 (>60)
[2018-09-17] MEDS: ALBUMIN HUMAN 25%- 100 ML 100 ML IV SCH (10:03)
[2018-09-17] MEDS: PEPCID 20 MG IV PREMIX* 20 MG/50 ML BAG IV SCH ×2 (10:03→22:08)
[2018-09-17] MEDS: LEVSIN/MAALOX/LIDOC VISC PO SCH ×2 (10:04→11:39)
[2018-09-17] MEDS: NYSTATIN SUSP MT SCH ×4 (10:05→21:25)
[2018-09-17] MEDS: DIFLUCAN PO SCH (10:06)
[2018-09-17] MEDS: WELLBUTRIN XL 150 MG (DAILY) PO SCH (10:06)
[2018-09-17] MEDS: MILK OF MAGNESIA PO SCH ×2 (10:06→21:26)
[2018-09-17] MEDS: LIBRIUM PO SCH ×2 (10:06→21:25)
[2018-09-17] MEDS: SINGULAIR TAB 10 MG PO SCH (10:06)
[2018-09-17] MEDS: CYMBALTA PO SCH (10:06)
[2018-09-17] MEDS: INVANZ INJ 1 GM VIAL 1 GM in NS 100 ML IV + SPIKE MINIBAG* 100 ML IV SCH (10:06)
[2018-09-17] MEDS: PROTONIX INJ 40 MG VIAL IVP SCH ×2 (10:06→21:25)
[2018-09-17] MEDS: NICOTINE PATCH TD SCH (10:07)
[2018-09-17] MEDS: NYSTATIN POWDER TOP SCH ×2 (10:07→21:26)
--- NOTE | 2018-09-17 12:31 | PCM.PROG ---
Progress Note - Progress Note for Day of Date of Exam: 09/15/18 - Subjective Subjective: WAS ADMITTED FOR UTI, LEUKOCYTOSIS, GENERALIZED WEAKNESS, AND LEFT HIP PAIN. WE FOUND A LESION TO THE TESTICLE FOR WHICH HE WILL REQUIRE A UROLOGY CONSULT AFTER DISCHARGE. URINE AND BLOOD CULTURES WERE POSITIVE FOR GROWTH OF E.COLI. HE RECEIVED TWO UNITS OF PACKED RED BLOOD CELLS ON MONDAY DUE TO A HEMOGLOBIN OF 7.7. TODAY, HE IS ALERT AND ORIENTED, LYING IN BED ON MORNING ROUNDS. HE CONTINUES WITH GENERALIZED WEAKNESS TODAY. ON EXAMINATION, HEART IS REGULAR IN RATE AND RHYTHM. BILATERAL LUNGS ARE NOTED WITH SCATTERED WHEEZING. ABDOMEN IS ROUND, SOFT, AND NOTED WITH MILD SUPRAPUBIC TENDERNESS. HIS VITALS THIS MORNING ARE 99.4-100-18-98%-132/84. LABS WERE OBTAINED. ABNORMAL LAB VALUES INCLUDE THE FOLLOWING: WBC 13.5, RBC 2.83, HGB 9.2, HCT 27.6, PLT COUNT 656, TOTAL PROTEIN 5.4, ALBUMIN 2.4. TOOK PATIENT TO THE OR FOR AN EGD YESTERDAY. POSTENDOSCOPY DIAGNOSES INCLUDED CANDID ESOPHAGITIS. HE STARTED PATIENT ON DIFLUCAN 100MG PO DAILY. HE IS CURRENTLY RECEIVING INVANZ 1G IV DAILY WELL. WE WILL CONTINUE WITH CURRENT PLAN OF CARE TODAY AND START NYSTATIN 5ML PO QID. OTHERWISE, WE WILL FOLLOW UP WITH AM LABS AND CONTINUE TO MONITOR. - Past Medical Family Social History Past Med/Fam/Surg Hx: No changes since H&P Allergies: Allergies No Known Drug Allergies Allergy (Verified 09/04/18 13:24) - Review of Systems ROS: No change since H&P - Vital Signs and I&O's Vital Signs: Temperature 101.4 F Pulse Rate [Left Radial] 101 Pulse Rate 116 Respiratory Rate 32 Blood Pressure [Left Arm] 115/72 Blood Pressure [Right Arm] 117/78 Blood Pressure 135/86 O2 Sat by Pulse Oximetry 96 Intake and Output: Intake & Output 09/15/18 09/16/18 09/17/18 09/18/18 11:59 11:59 11:59 11:59 Intake Total 2129 Output Total 1000 / 1000 Balance 2129 1070 / 1070 - Physical Exam Oriented: Not Oriented Eyes: Normal Ear: Normal Nose: Normal Throat: Normal Respiratory: Generalized, Diminished, Wheezes Cardiovascular: Edema (1+ PITTING EDEMA TO UPPER AND LOWER EXTREMITIES ) : Other (SCROTAL PAIN) Auscultation: Bowel Sounds: Decreased Palpation: Normal Tenderness: Normal (diffuse tenderness with moderate distention , BS+) Skin: Bruising Musculoskeletal: Normal Psychiatric: Normal Mood Description: Calm Affect: Normal Speech Pattern: Clear, Inappropriate - Laboratory and Diagnostics Result Diagrams: 09/17/18 05:20 09/17/18 05:20 Labs: 09/10/18 14:05 Blood Blood Culture - Final 09/10/18 13:18 Blood Blood Culture - Final 09/04/18 16:36 Blood Blood Culture - Final Escherichia Coli 09/04/18 17:24 Urine,Clean Catch Urine Culture - Final Escherichia Coli Laboratory WBC 14.6 X10^3/uL (3.6-10.0) H 09/17/18 05:20 RBC 2.63 X10^6/uL (4.7-6.0) L 09/17/18 05:20 Hgb 8.6 g/dL (13.5-18.0) L 09/17/18 05:20 Hct 25.5 % (42.0-54.0) L 09/17/18 05:20 MCV 96.8 fL (80.0-100.0) 09/17/18 05:20 MCH 32.6 pg (27.0-34.0) 09/17/18 05:20 MCHC 33.6 g/dL (33.0-35.0) 09/17/18 05:20 RDW 13.9 % (11.6-16.5) 09/17/18 05:20 Plt Count 588 X10^3/uL (150.0-450.0) H 09/17/18 05:20 Plt Count Comment Increased (ADEQUATE) 09/16/18 05:39 MPV 6.4 fL (7.4-11.0) L 09/17/18 05:20 Neut % (Auto) 85.2 % (42.0-75.0) H 09/17/18 05:20 Lymph % (Auto) 6.2 % (21.0-51.0) L 09/17/18 05:20 [place] % (Auto) 7.0 % (0.0-13.0) 09/17/18 05:20 Eos % (Auto) 0.6 % (0.9-2.9) L 09/17/18 05:20 Baso % (Auto) 1.0 % (0.2-1.0) 09/17/18 05:20 Neut # (Auto) 12.5 x10^3/uL (2.2-4.8) H 09/17/18 05:20 Lymph # (Auto) 0.9 X10^3/uL (1.3-2.9) L 09/17/18 05:20 [place] # (Auto) 1.0 x10^3/uL (0.3-0.8) H 09/17/18 05:20 Eos # (Auto) 0.1 x10^3/uL (0.0-0.2) 09/17/18 05:20 Baso # (Auto) 0.2 X10^3/uL (0.0-0.1) H 09/17/18 05:20 Absolute Nucleated RBC 0.0 /100WBC 09/17/18 05:20 Total Counted 100 09/10/18 04:50 Neutrophils % (Manual) 91 % (39-76) H 09/10/18 04:50 Lymphocytes % (Manual) 4 % (13-43) L 09/10/18 04:50 Monocytes % (Manual) 5 % (4-9) 09/10/18 04:50 Plt Morphology Comment Normal (NORMAL) 09/16/18 05:39 RBC Morphology Normal (NORMAL) 09/16/18 05:39 Hypochromasia Slight A 09/12/18 04:29 Sodium 139 mmol/L (136-145) 09/17/18 05:20 Corrected Sodium TNP 09/17/18 05:20 Potassium 4.1 mmol/L (3.5-5.1) 09/17/18 05:20 Chloride 105 mmol/L (98-107) 09/17/18 05:20 Carbon Dioxide 27.6 mmol/L (21-32) 09/17/18 05:20 BUN 7 mg/dL (7-18) 09/17/18 05:20 Creatinine 1.17 mg/dL (0.70-1.30) 09/17/18 05:20 Est GFR (MDRD) Af Amer > 60 (>60) 09/17/18 05:20 Est GFR (MDRD) Non-Af > 60 (>60) 09/17/18 05:20 Glucose 82 mg/dL (65-99) 09/17/18 05:20 Lactic Acid 0.6 mmol/L (0.4-2.0) 09/16/18 17:40 Calcium 10.2 mg/dL (8.5-10.1) H 09/17/18 05:20 Corrected Calcium 11.5 mg/dL (8.5-10.1) H 09/17/18 05:20 Magnesium 1.9 mg/dL (1.7-2.9) 09/17/18 05:20 Iron 10 ug/dL (50-175) L 09/13/18 11:04 TIBC 94 ug/dL (250-450) L 09/13/18 11:04 Ferritin 565 ng/mL (26-388) H 09/13/18 11:04 Total Bilirubin 0.60 mg/dL (0.2-1.0) 09/17/18 05:20 AST 23 Units/L (15-37) 09/17/18 05:20 ALT 28 Units/L (12-78) 09/17/18 05:20 Alkaline Phosphatase 62 Units/L (46-116) 09/17/18 05:20 Creatine Kinase 321 Units/L (39-308) H 09/05/18 07:00 CK-MB (CK-2) 1.2 ng/mL (0-4.0) 09/05/18 07:00 CK/CKMB % Calc 0.4 % (<4) 09/05/18 07:00 Troponin I < 0.02 ng/mL (0-1.5) 09/05/18 07:00 Total Protein 5.5 g/dL (6.4-8.2) L 09/17/18 05:20 Albumin 2.4 g/dL (3.4-5.0) L 09/17/18 05:20 Globulin 3.1 g/dL (2.5-4.5) 09/17/18 05:20 Albumin/Globulin Ratio 0.8 Ratio (1.1-2.1) L 09/17/18 05:20 Triglycerides 185 mg/dL (0-150) H 09/05/18 07:00 Cholesterol 83 mg/dL (0-200) 09/05/18 07:00 LDL Cholesterol, Calc 37 mg/dL (0-100) 09/05/18 07:00 HDL Cholesterol 9 mg/dL (40-60) L 09/05/18 07:00 Cholesterol/HDL Ratio 9.2 (0.0-5.0) H 09/05/18 07:00 Alpha Fetoprotein 1 ng/mL (0-9) 09/06/18 05:15 Total PSA 0.81 ng/mL (0.13-4.0) 09/06/18 05:15 Vitamin B12 572 pg/mL (193-986) 09/13/18 11:04 Folate 7.7 ng/mL (>8.6) L 09/13/18 11:04 HCG, Quant < 1 mIU/mL 09/06/18 05:15 Specimen Type Clean catch urine 09/17/18 01:00 Urine Color Dark yellow (YELLOW) 09/17/18 01:00 Urine Appearance Clear (CLEAR) 09/17/18 01:00 Urine pH 5.0 (5.0 - 8.0) 09/17/18 01:00 Ur Specific [place] 1.020 (1.000-1.030) 09/17/18 01:00 Urine Protein 3+ (NEGATIVE) 09/17/18 01:00 Urine Glucose (UA) Negative (NEGATIVE) 09/17/18 01:00 Urine Ketones Negative (NEGATIVE) 09/17/18 01:00 Urine Occult Blood 1+ (NEGATIVE) 09/17/18 01:00 Urine Nitrite Negative (NEGATIVE) 09/17/18 01:00 Urine Bilirubin Negative (NEGATIVE) 09/17/18 01:00 Urine Urobilinogen Normal (NORMAL) 09/17/18 01:00 Ur Leukocyte Esterase 1+ (NEGATIVE) 09/17/18 01:00 Urine RBC 0-2 /HPF (NONE SEEN) 09/17/18 01:00 Urine WBC 30-50 /HPF (NONE SEEN) 09/17/18 01:00 Ur Squamous Epith Cells Rare /HPF (NEGATIVE) 09/17/18 01:00 Urine Bacteria Trace /HPF (NEGATIVE) 09/17/18 01:00 Hyaline Casts Rare /LPF (NEGATIVE) 09/17/18 01:00 Urine Mucus Moderate /HPF (NEGATIVE) 09/17/18 01:00 Ur Culture Indicated? Yes/culture set up 09/17/18 01:00 Stool Description Ifob 09/11/18 14:45 Stl Occult Blood (IFOB) Positive (NEGATIVE) A 09/11/18 14:45 Tissue Pathology To follow 09/13/18 09:41 Blood Type AB POSITIVE 09/11/18 10:17 Antibody Screen Negative 09/11/18 10:17 Crossmatch See Detail 09/11/18 10:17 - Plan (1) UTI (urinary tract infection) with pyuria Status: Acute Plan: IV FLUIDS, INVANZ 1G IV DAILY, CONTINUE TO MONITOR (2) Leukocytosis Status: Acute Qualifiers: Leukocytosis type: unspecified Qualified Code(s): D72.829 - Elevated white blood cell count, unspecified Plan: INVANZ 1G IV DAILY, CONTINUE TO MONITOR (3) Generalized weakness Status: Acute (4) Acute pain of left hip Status: Resolved (5) Testicular/scrotal pain Status: Acute Plan: CONTINUE TO MONITOR (6) COPD (chronic obstructive pulmonary disease) Status: Chronic Qualifiers: COPD type: unspecified COPD Qualified Code(s): J44.9 - Chronic obstructive pulmonary disease, unspecified (7) Anemia Status: Acute Qualifiers: Anemia type: iron deficiency Iron deficiency anemia type: chronic blood loss Qualified Code(s): D50.0 - Iron deficiency anemia secondary to blood loss (chronic) Plan: CONTINUE TO MONITOR (8) Vidhi esophagitis Status: Acute Plan: DIFLUCAN 100MG PO DAILY, NYSTATIN SWISH AND SWALLOW 5ML PO QID, CONTINUE TO MONITOR (9) Altered mental status Status: Acute Qualifiers: Altered mental status type: transient alteration of awareness Qualified Code(s): R40.4 - Transient alteration of awareness Plan: OBTAIN BRAIN CT, CONTINUE TO MONITOR
[2018-09-17] MEDS: CHECK PATCH XX SCH ×2 (12:43→21:26)
--- NOTE | 2018-09-17 12:44 | PCM.PROG ---
Progress Note - Progress Note for Day of Date of Exam: 09/16/18 - Subjective Subjective: WAS ADMITTED FOR UTI, LEUKOCYTOSIS, GENERALIZED WEAKNESS, AND LEFT HIP PAIN. WE FOUND A LESION TO THE TESTICLE FOR WHICH HE WILL REQUIRE A UROLOGY CONSULT AFTER DISCHARGE. URINE AND BLOOD CULTURES WERE POSITIVE FOR GROWTH OF E.COLI. REPEAT CULTURES WERE OBTAINED AND ARE PENDING. TODAY, HE IS ALERT, LYING IN BED ON MORNING ROUNDS. HE CONTINUES WITH GENERALIZED WEAKNESS TODAY. FAMILY REPORTS THAT HE CONTINUES WITH CONFUSION AND ALTERED MENTAL STATUS. ON EXAMINATION, HEART IS REGULAR IN RATE AND RHYTHM. BILATERAL LUNGS ARE NOTED WITH DIMINISHED LUNG SOUNDS. ABDOMEN IS ROUND, SOFT, AND NON-TENDER. NORMAL BOWEL SOUND ARE NOTED IN ALL QUADRANTS. THERE CONTINUES WITH 1+ PITTING EDEMA NOTED TO UPPER AND LOWER EXTREMITIES. HIS VITALS THIS MORNING ARE 98.9-101-18-97%-151/91. HE HAS BEEN FEBRILE THROUGHOUT THE NIGHT. LABS WERE OBTAINED. ABNORMAL LAB VALUES INCLUDE THE FOLLOWING: WBC 14.8, RBC 2.66, HGB 8.6, HCT 26.1, PLT COUNT 613, MAGNESIUM 1.2, TOTAL PROTEIN 5.6, ALBUMIN 2.5. BRAIN CT WAS REPEATED YESTERDAY AND REVEALED: No acute intracranial abnormality. CHEST XRAY IS NEGATIVE FOR ACUTE PROCESS. HE IS CURRENTLY RECEIVING INVANZ 1G IV DAILY FOR INFECTION IN BLOOD AND URINE AND DIFLUCAN 100MG PO DAILY FOR TERESSA ESOPHAGITIS. WE WILL CONTINUE WITH CURRENT PLAN OF CARE TODAY. OTHERWISE, WE WILL FOLLOW UP WITH AM LABS AND CONTINUE TO MONITOR. - Past Medical Family Social History Past Med/Fam/Surg Hx: No changes since H&P Allergies: Allergies No Known Drug Allergies Allergy (Verified 09/04/18 13:24) - Review of Systems ROS: No change since H&P - Vital Signs and I&O's Vital Signs: Temperature 101.4 F Pulse Rate [Left Radial] 101 Pulse Rate 116 Respiratory Rate 32 Blood Pressure [Left Arm] 115/72 Blood Pressure [Right Arm] 117/78 Blood Pressure 135/86 O2 Sat by Pulse Oximetry 96 Intake and Output: Intake & Output 09/15/18 09/16/18 09/17/18 09/18/18 11:59 11:59 11:59 11:59 Intake Total 2129 / 2129 Output Total 1000 / 1000 Balance 2129 1070 / 1070 - Physical Exam Oriented: Not Oriented Eyes: Normal Ear: Normal Nose: Normal Throat: Normal Respiratory: Generalized, Diminished, Wheezes Cardiovascular: Edema (1+ PITTING EDEMA TO UPPER AND LOWER EXTREMITIES ) : Other (SCROTAL PAIN) Auscultation: Bowel Sounds: Decreased Palpation: Normal Tenderness: Normal (diffuse tenderness with moderate distention , BS+) Skin: Bruising Musculoskeletal: Normal Psychiatric: Normal Mood Description: Calm Affect: Normal Speech Pattern: Clear, Inappropriate - Laboratory and Diagnostics Result Diagrams: 09/17/18 05:20 09/17/18 05:20 Labs: 09/10/18 14:05 Blood Blood Culture - Final 09/10/18 13:18 Blood Blood Culture - Final 09/04/18 16:36 Blood Blood Culture - Final Escherichia Coli 09/04/18 17:24 Urine,Clean Catch Urine Culture - Final Escherichia Coli Laboratory WBC 14.6 X10^3/uL (3.6-10.0) H 09/17/18 05:20 RBC 2.63 X10^6/uL (4.7-6.0) L 09/17/18 05:20 Hgb 8.6 g/dL (13.5-18.0) L 09/17/18 05:20 Hct 25.5 % (42.0-54.0) L 09/17/18 05:20 MCV 96.8 fL (80.0-100.0) 09/17/18 05:20 MCH 32.6 pg (27.0-34.0) 09/17/18 05:20 MCHC 33.6 g/dL (33.0-35.0) 09/17/18 05:20 RDW 13.9 % (11.6-16.5) 09/17/18 05:20 Plt Count 588 X10^3/uL (150.0-450.0) H 09/17/18 05:20 Plt Count Comment Increased (ADEQUATE) 09/16/18 05:39 MPV 6.4 fL (7.4-11.0) L 09/17/18 05:20 Neut % (Auto) 85.2 % (42.0-75.0) H 09/17/18 05:20 Lymph % (Auto) 6.2 % (21.0-51.0) L 09/17/18 05:20 [place] % (Auto) 7.0 % (0.0-13.0) 09/17/18 05:20 Eos % (Auto) 0.6 % (0.9-2.9) L 09/17/18 05:20 Baso % (Auto) 1.0 % (0.2-1.0) 09/17/18 05:20 Neut # (Auto) 12.5 x10^3/uL (2.2-4.8) H 09/17/18 05:20 Lymph # (Auto) 0.9 X10^3/uL (1.3-2.9) L 09/17/18 05:20 [place] # (Auto) 1.0 x10^3/uL (0.3-0.8) H 09/17/18 05:20 Eos # (Auto) 0.1 x10^3/uL (0.0-0.2) 09/17/18 05:20 Baso # (Auto) 0.2 X10^3/uL (0.0-0.1) H 09/17/18 05:20 Absolute Nucleated RBC 0.0 /100WBC 09/17/18 05:20 Total Counted 100 09/10/18 04:50 Neutrophils % (Manual) 91 % (39-76) H 09/10/18 04:50 Lymphocytes % (Manual) 4 % (13-43) L 09/10/18 04:50 Monocytes % (Manual) 5 % (4-9) 09/10/18 04:50 Plt Morphology Comment Normal (NORMAL) 09/16/18 05:39 RBC Morphology Normal (NORMAL) 09/16/18 05:39 Hypochromasia Slight A 09/12/18 04:29 Sodium 139 mmol/L (136-145) 09/17/18 05:20 Corrected Sodium TNP 09/17/18 05:20 Potassium 4.1 mmol/L (3.5-5.1) 09/17/18 05:20 Chloride 105 mmol/L (98-107) 09/17/18 05:20 Carbon Dioxide 27.6 mmol/L (21-32) 09/17/18 05:20 BUN 7 mg/dL (7-18) 09/17/18 05:20 Creatinine 1.17 mg/dL (0.70-1.30) 09/17/18 05:20 Est GFR (MDRD) Af Amer > 60 (>60) 09/17/18 05:20 Est GFR (MDRD) Non-Af > 60 (>60) 09/17/18 05:20 Glucose 82 mg/dL (65-99) 09/17/18 05:20 Lactic Acid 0.6 mmol/L (0.4-2.0) 09/16/18 17:40 Calcium 10.2 mg/dL (8.5-10.1) H 09/17/18 05:20 Corrected Calcium 11.5 mg/dL (8.5-10.1) H 09/17/18 05:20 Magnesium 1.9 mg/dL (1.7-2.9) 09/17/18 05:20 Iron 10 ug/dL (50-175) L 09/13/18 11:04 TIBC 94 ug/dL (250-450) L 09/13/18 11:04 Ferritin 565 ng/mL (26-388) H 09/13/18 11:04 Total Bilirubin 0.60 mg/dL (0.2-1.0) 09/17/18 05:20 AST 23 Units/L (15-37) 09/17/18 05:20 ALT 28 Units/L (12-78) 09/17/18 05:20 Alkaline Phosphatase 62 Units/L (46-116) 09/17/18 05:20 Creatine Kinase 321 Units/L (39-308) H 09/05/18 07:00 CK-MB (CK-2) 1.2 ng/mL (0-4.0) 09/05/18 07:00 CK/CKMB % Calc 0.4 % (<4) 09/05/18 07:00 Troponin I < 0.02 ng/mL (0-1.5) 09/05/18 07:00 Total Protein 5.5 g/dL (6.4-8.2) L 09/17/18 05:20 Albumin 2.4 g/dL (3.4-5.0) L 09/17/18 05:20 Globulin 3.1 g/dL (2.5-4.5) 09/17/18 05:20 Albumin/Globulin Ratio 0.8 Ratio (1.1-2.1) L 09/17/18 05:20 Triglycerides 185 mg/dL (0-150) H 09/05/18 07:00 Cholesterol 83 mg/dL (0-200) 09/05/18 07:00 LDL Cholesterol, Calc 37 mg/dL (0-100) 09/05/18 07:00 HDL Cholesterol 9 mg/dL (40-60) L 09/05/18 07:00 Cholesterol/HDL Ratio 9.2 (0.0-5.0) H 09/05/18 07:00 Alpha Fetoprotein 1 ng/mL (0-9) 09/06/18 05:15 Total PSA 0.81 ng/mL (0.13-4.0) 09/06/18 05:15 Vitamin B12 572 pg/mL (193-986) 09/13/18 11:04 Folate 7.7 ng/mL (>8.6) L 09/13/18 11:04 HCG, Quant < 1 mIU/mL 09/06/18 05:15 Specimen Type Clean catch urine 09/17/18 01:00 Urine Color Dark yellow (YELLOW) 09/17/18 01:00 Urine Appearance Clear (CLEAR) 09/17/18 01:00 Urine pH 5.0 (5.0 - 8.0) 09/17/18 01:00 Ur Specific [place] 1.020 (1.000-1.030) 09/17/18 01:00 Urine Protein 3+ (NEGATIVE) 09/17/18 01:00 Urine Glucose (UA) Negative (NEGATIVE) 09/17/18 01:00 Urine Ketones Negative (NEGATIVE) 09/17/18 01:00 Urine Occult Blood 1+ (NEGATIVE) 09/17/18 01:00 Urine Nitrite Negative (NEGATIVE) 09/17/18 01:00 Urine Bilirubin Negative (NEGATIVE) 09/17/18 01:00 Urine Urobilinogen Normal (NORMAL) 09/17/18 01:00 Ur Leukocyte Esterase 1+ (NEGATIVE) 09/17/18 01:00 Urine RBC 0-2 /HPF (NONE SEEN) 09/17/18 01:00 Urine WBC 30-50 /HPF (NONE SEEN) 09/17/18 01:00 Ur Squamous Epith Cells Rare /HPF (NEGATIVE) 09/17/18 01:00 Urine Bacteria Trace /HPF (NEGATIVE) 09/17/18 01:00 Hyaline Casts Rare /LPF (NEGATIVE) 09/17/18 01:00 Urine Mucus Moderate /HPF (NEGATIVE) 09/17/18 01:00 Ur Culture Indicated? Yes/culture set up 09/17/18 01:00 Stool Description Ifob 09/11/18 14:45 Stl Occult Blood (IFOB) Positive (NEGATIVE) A 09/11/18 14:45 Tissue Pathology To follow 09/13/18 09:41 Blood Type AB POSITIVE 09/11/18 10:17 Antibody Screen Negative 09/11/18 10:17 Crossmatch See Detail 09/11/18 10:17 - Plan (1) UTI (urinary tract infection) with pyuria Status: Acute Plan: IV FLUIDS, INVANZ 1G IV DAILY, CONTINUE TO MONITOR (2) Leukocytosis Status: Acute Qualifiers: Leukocytosis type: unspecified Qualified Code(s): D72.829 - Elevated white blood cell count, unspecified Plan: INVANZ 1G IV DAILY, CONTINUE TO MONITOR (3) Generalized weakness Status: Acute (4) Acute pain of left hip Status: Resolved (5) Testicular/scrotal pain Status: Acute Plan: CONTINUE TO MONITOR (6) COPD (chronic obstructive pulmonary disease) Status: Chronic Qualifiers: COPD type: unspecified COPD Qualified Code(s): J44.9 - Chronic obstructive pulmonary disease, unspecified (7) Anemia Status: Acute Qualifiers: Anemia type: iron deficiency Iron deficiency anemia type: chronic blood loss Qualified Code(s): D50.0 - Iron deficiency anemia secondary to blood loss (chronic) Plan: CONTINUE TO MONITOR (8) [place]ressa esophagitis Status: Acute Plan: DIFLUCAN 100MG PO DAILY, NYSTATIN SWISH AND SWALLOW 5ML PO QID, CONTINUE TO MONITOR (9) Altered mental status Status: Acute Qualifiers: Altered mental status type: transient alteration of awareness Qualified Code(s): R40.4 - Transient alteration of awareness Plan: OBTAIN BRAIN MRI IN AM, CONTINUE TO MONITOR
[2018-09-17] MEDS: NS 1000 ML 1,000 ML with THIAMINE HCL INJ 100 MG, MAGNESIUM SULFATE 50% INJ 1 G, MVI IN... IV SCH ×5 (14:35)
[2018-09-17] MEDS: TYLENOL 325 MG TAB PO PRN ×2 (14:57→21:27)
--- NOTE | 2018-09-17 17:54 | MRI ---
MRI BRAIN WITHOUT CONTRAST CLINICAL HISTORY: 68-year-old male with altered mental status and weakness. COMPARISON: CT head 09/15/2018. TECHNIQUE: Multiplanar, multisequence MR images of the brain were obtained without contrast. FINDINGS: Study is limited secondary to patient motion. There is no evidence of diffusion restriction. The craniocervical junction is normal given degree of motion.. Pituitary and optic nerve complex are grossly normal. Few scattered periventricular and supraventricular T2 FLAIR hyperintense signal abnormalities within the white matter most likely related to hypertension and indicative of chronic microvascular white matter ischemic insult. Grossly normal signal characteristics and morphology are demonstrated within the cerebral cortex, corpus callosum, deep carnes nuclei, brainstem and cerebellum. The major vascular flow voids, to include the dural venous sinuses, are grossly intact. No gross susceptibility abnormality. Age advanced cortical volume loss is present, with commensurate sulcal and ventricular prominence. The basilar cisterns are grossly normal. The orbits and globes are grossly unremarkable. The paranasal sinuses, tympanic cavities and mastoids are grossly clear. IMPRESSION: 1. Significant motion degradation of the examination. Repeat examinations should be performed under anesthesia or conscious sedation. 2. Given the above limitations, no gross evidence of acute ischemic or hemorrhagic insult. 3. 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 Reported By:
[2018-09-17 18:36] LABS: HEMATOCRIT 22.3 % (42.0-54.0); HEMOGLOBIN 7.5 g/dL (13.5-18.0)
[2018-09-17] MEDS: COLACE CAP 100 MG PO SCH (21:25)
[2018-09-17] MEDS: FLOMAX PO SCH (21:25)
[2018-09-17] MEDS: DESYREL PO SCH (22:07)
[2018-09-18] MEDS: MAGNESIUM SULFATE 1 GRAM/100 mL PREMIX 1 GM/100 ML BAG IV PRN ×4 (01:21→12:20)
[2018-09-18 05:42] LABS: BASOPHILS # (AUTO) 0.1 X10^3/uL (0.0-0.1); BASOPHILS % (AUTO) 0.7 % (0.2-1.0); EOSINOPHILS # (AUTO) 0.1 x10^3/uL (0.0-0.2); HEMATOCRIT 24.8 % (42.0-54.0); HEMOGLOBIN 8.2 g/dL (13.5-18.0); LYMPHOCYTES # (AUTO) 0.9 X10^3/uL (1.3-2.9); MEAN CORPUSCULAR HEMOGLOBIN 32.6 pg (27.0-34.0); MEAN CORPUSCULAR HGB CONC 33.2 g/dL (33.0-35.0); MEAN CORPUSCULAR VOLUME 98.1 fL (80.0-100.0); MEAN PLATELET VOLUME 6.4 fL (7.4-11.0); MONOCYTES # (AUTO) 1.3 x10^3/uL (0.3-0.8); MONOCYTES % (AUTO) 10.1 % (0.0-13.0); NEUTROPHILS # (AUTO) 10.7 x10^3/uL (2.2-4.8); NEUTROPHILS % (AUTO) 81.2 % (42.0-75.0); PLATELET COUNT 548 X10^3/uL (150.0-450.0); RED BLOOD COUNT 2.52 X10^6/uL (4.7-6.0); RED CELL DISTRIBUTION WIDTH 14.3 % (11.6-16.5); WHITE BLOOD COUNT 13.2 X10^3/uL (3.6-10.0)
[2018-09-18 05:59] LABS: ALANINE AMINOTRANSFERASE 21 Units/L (12-78); ALBUMIN 2.5 g/dL (3.4-5.0); ALKALINE PHOSPHATASE 62 Units/L (46-116); ASPARTATE AMINO TRANSFERASE 19 Units/L (15-37); BLOOD UREA NITROGEN 7 mg/dL (7-18); CALCIUM 10.4 mg/dL (8.5-10.1); CARBON DIOXIDE 28.5 mmol/L (21-32); CHLORIDE 104 mmol/L (98-107); COR CA(FOR HYPOALB) 11.6 mg/dL (8.5-10.1); CREATININE 1.14 mg/dL (0.70-1.30); SODIUM 140 mmol/L (136-145); TOTAL PROTEIN 5.5 g/dL (6.4-8.2); eGFR NON BLACK RACES > 60 (>60)
[2018-09-18] MEDS: K-DUR TAB 20 MEQ PO PRN (06:39)
[2018-09-18] MEDS: NS 1000 ML 1,000 ML IV SCH ×2 (06:40→16:59)
[2018-09-18] MEDS: ALBUMIN HUMAN 25%- 100 ML 100 ML IV SCH (09:57)
[2018-09-18] MEDS: PEPCID 20 MG IV PREMIX* 20 MG/50 ML BAG IV SCH ×2 (09:58→20:34)
[2018-09-18] MEDS: NICOTINE PATCH TD SCH (09:58)
[2018-09-18] MEDS: WELLBUTRIN XL 150 MG (DAILY) PO SCH (09:59)
[2018-09-18] MEDS: SINGULAIR TAB 10 MG PO SCH (09:59)
[2018-09-18] MEDS: PROTONIX INJ 40 MG VIAL IVP SCH ×2 (09:59→20:35)
[2018-09-18] MEDS: NYSTATIN SUSP MT SCH ×4 (09:59→20:37)
[2018-09-18] MEDS: LIBRIUM PO SCH ×2 (09:59→20:36)
[2018-09-18] MEDS: INVANZ INJ 1 GM VIAL 1 GM in NS 100 ML IV + SPIKE MINIBAG* 100 ML IV SCH (09:59)
[2018-09-18] MEDS: DIFLUCAN PO SCH (09:59)
[2018-09-18] MEDS: CYMBALTA PO SCH (10:00)
[2018-09-18] MEDS: CHECK PATCH XX SCH ×2 (10:00→20:44)
[2018-09-18] MEDS: MILK OF MAGNESIA PO SCH ×2 (10:01→20:45)
[2018-09-18] MEDS: NYSTATIN POWDER TOP SCH ×2 (10:01→21:31)
[2018-09-18] MEDS ORDERED: ROXICODONE TAB 5 MG PO PRN (10:29)
[2018-09-18] MEDS: NS 1000 ML 1,000 ML with THIAMINE HCL INJ 100 MG, MAGNESIUM SULFATE 50% INJ 1 G, MVI IN... IV SCH ×10 (13:23→21:31)
[2018-09-18] MEDS: TYLENOL 325 MG TAB PO PRN ×2 (13:25→20:36)
[2018-09-18 18:40] LABS: HEMATOCRIT 22.6 % (42.0-54.0); HEMOGLOBIN 7.5 g/dL (13.5-18.0)
--- NOTE | 2018-09-18 19:13 | PCM.PROG ---
Progress Note - Progress Note for Day of Date of Exam: 09/17/18 - Subjective Subjective: WAS ADMITTED FOR UTI, LEUKOCYTOSIS, GENERALIZED WEAKNESS, AND LEFT HIP PAIN. WE FOUND A LESION TO THE TESTICLE FOR WHICH HE WILL REQUIRE A UROLOGY CONSULT AFTER DISCHARGE. URINE AND BLOOD CULTURES WERE POSITIVE FOR GROWTH OF E.COLI. REPEAT CULTURES WERE OBTAINED AND ARE NEGATIVE. TODAY, HE IS LYING IN BED WITH EYES CLOSED ON MORNING ROUNDS. HE AWAKENS TO VERBAL STIMULI, BUT IS DISORIENTED. HE CONTINUES WITH GENERALIZED WEAKNESS TODAY. ON EXAMINATION, HEART IS REGULAR IN RATE AND RHYTHM. BILATERAL LUNGS ARE NOTED WITH DIMINISHED LUNG SOUNDS. ABDOMEN IS ROUND, SOFT, AND NON-TENDER. NORMAL BOWEL SOUND ARE NOTED IN ALL QUADRANTS. THERE CONTINUES WITH 1+ PITTING EDEMA NOTED TO UPPER AND LOWER EXTREMITIES. HIS VITALS THIS MORNING ARE 101.4-101-32-96%-117/78. HE HAS BEEN FEBRILE THROUGHOUT THE NIGHT. LABS WERE OBTAINED. ABNORMAL LAB VALUES INCLUDE THE FOLLOWING: WBC 14.6, RBC 2.63, HGB 8.6, HCT 25.5, PLT COUNT 588, TOTAL PROTEIN 5.5, ALBUMIN 2.4. HE IS CURRENTLY RECEIVING INVANZ 1G IV DAILY FOR INFECTION IN BLOOD AND URINE AND DIFLUCAN 100MG PO DAILY FOR TERESSA ESOPHAGITIS. WE WILL CONTINUE WITH CURRENT PLAN OF CARE TODAY. WE WILL OBTIAN A BRAIN MRI DUE TO PERSISTENT AMS AND WEAKNESS. OTHERWISE, WE WILL FOLLOW UP WITH AM LABS AND CONTINUE TO MONITOR. - Past Medical Family Social History Past Med/Fam/Surg Hx: No changes since H&P Allergies: Allergies No Known Drug Allergies Allergy (Verified 09/04/18 13:24) - Review of Systems ROS: No change since H&P - Vital Signs and I&O's Vital Signs: Temperature 101.9 F Pulse Rate [Left Radial] 99 Pulse Rate 116 Respiratory Rate 20 Blood Pressure [Left Arm] 113/68 Blood Pressure [Right Arm] 131/82 Blood Pressure 135/86 O2 Sat by Pulse Oximetry 93 Intake and Output: Intake & Output 09/16/18 09/17/18 09/18/18 09/19/18 11:59 11:59 11:59 11:59 Intake Total 1939 / 2069 1190 / 1190 715 / 715 Output Total 1000 / 1000 1225 / 1225 700 / 700 Balance 1940 / 1940 1070 / 1070 -35 / -35 - Physical Exam Oriented: Not Oriented Eyes: Normal Ear: Normal Nose: Normal Throat: Normal Respiratory: Generalized, Diminished, Wheezes Cardiovascular: Edema (1+ PITTING EDEMA TO UPPER AND LOWER EXTREMITIES ) : Other (SCROTAL PAIN) Auscultation: Bowel Sounds: Decreased Palpation: Normal Tenderness: Normal (diffuse tenderness with moderate distention , BS+) Skin: Bruising Musculoskeletal: Normal Psychiatric: Normal Mood Description: Calm Affect: Normal Speech Pattern: Unclear, Delayed - Laboratory and Diagnostics Result Diagrams: 09/18/18 18:21 09/18/18 05:13 Labs: 09/16/18 23:23 Blood Blood Culture - Preliminary 09/16/18 23:31 Blood Blood Culture - Preliminary 09/17/18 01:00 Urine,Clean Catch Urine Culture - Preliminary 09/10/18 14:05 Blood Blood Culture - Final 09/10/18 13:18 Blood Blood Culture - Final 09/04/18 16:36 Blood Blood Culture - Final Escherichia Coli 09/04/18 17:24 Urine,Clean Catch Urine Culture - Final Escherichia Coli Laboratory WBC 13.2 X10^3/uL (3.6-10.0) H 09/18/18 05:13 RBC 2.52 X10^6/uL (4.7-6.0) L 09/18/18 05:13 Hgb 7.5 g/dL (13.5-18.0) L 09/18/18 18:21 Hct 22.6 % (42.0-54.0) L 09/18/18 18:21 MCV 98.1 fL (80.0-100.0) 09/18/18 05:13 MCH 32.6 pg (27.0-34.0) 09/18/18 05:13 MCHC 33.2 g/dL (33.0-35.0) 09/18/18 05:13 RDW 14.3 % (11.6-16.5) 09/18/18 05:13 Plt Count 548 X10^3/uL (150.0-450.0) H 09/18/18 05:13 Plt Count Comment Increased (ADEQUATE) 09/16/18 05:39 MPV 6.4 fL (7.4-11.0) L 09/18/18 05:13 Neut % (Auto) 81.2 % (42.0-75.0) H 09/18/18 05:13 Lymph % (Auto) 7.0 % (21.0-51.0) L 09/18/18 05:13 [place] % (Auto) 10.1 % (0.0-13.0) 09/18/18 05:13 Eos % (Auto) 1.0 % (0.9-2.9) 09/18/18 05:13 Baso % (Auto) 0.7 % (0.2-1.0) 09/18/18 05:13 Neut # (Auto) 10.7 x10^3/uL (2.2-4.8) H 09/18/18 05:13 Lymph # (Auto) 0.9 X10^3/uL (1.3-2.9) L 09/18/18 05:13 [place] # (Auto) 1.3 x10^3/uL (0.3-0.8) H 09/18/18 05:13 Eos # (Auto) 0.1 x10^3/uL (0.0-0.2) 09/18/18 05:13 Baso # (Auto) 0.1 X10^3/uL (0.0-0.1) 09/18/18 05:13 Absolute Nucleated RBC 0.0 /100WBC 09/18/18 05:13 Total Counted 100 09/10/18 04:50 Neutrophils % (Manual) 91 % (39-76) H 09/10/18 04:50 Lymphocytes % (Manual) 4 % (13-43) L 09/10/18 04:50 Monocytes % (Manual) 5 % (4-9) 09/10/18 04:50 Plt Morphology Comment Normal (NORMAL) 09/16/18 05:39 RBC Morphology Normal (NORMAL) 09/16/18 05:39 Hypochromasia Slight A 09/12/18 04:29 Sodium 140 mmol/L (136-145) 09/18/18 05:13 Corrected Sodium TNP 09/18/18 05:13 Potassium 3.6 mmol/L (3.5-5.1) 09/18/18 05:13 Chloride 104 mmol/L (98-107) 09/18/18 05:13 Carbon Dioxide 28.5 mmol/L (21-32) 09/18/18 05:13 BUN 7 mg/dL (7-18) 09/18/18 05:13 Creatinine 1.14 mg/dL (0.70-1.30) 09/18/18 05:13 Est GFR (MDRD) Af Amer > 60 (>60) 09/18/18 05:13 Est GFR (MDRD) Non-Af > 60 (>60) 09/18/18 05:13 Glucose 84 mg/dL (65-99) 09/18/18 05:13 Lactic Acid 0.6 mmol/L (0.4-2.0) 09/16/18 17:40 Calcium 10.4 mg/dL (8.5-10.1) H 09/18/18 05:13 Corrected Calcium 11.6 mg/dL (8.5-10.1) H 09/18/18 05:13 Magnesium 1.8 mg/dL (1.7-2.9) 09/18/18 05:13 Iron 10 ug/dL (50-175) L 09/13/18 11:04 TIBC 94 ug/dL (250-450) L 09/13/18 11:04 Ferritin 565 ng/mL (26-388) H 09/13/18 11:04 Total Bilirubin 0.50 mg/dL (0.2-1.0) 09/18/18 05:13 AST 19 Units/L (15-37) 09/18/18 05:13 ALT 21 Units/L (12-78) 09/18/18 05:13 Alkaline Phosphatase 62 Units/L (46-116) 09/18/18 05:13 Creatine Kinase 321 Units/L (39-308) H 09/05/18 07:00 CK-MB (CK-2) 1.2 ng/mL (0-4.0) 09/05/18 07:00 CK/CKMB % Calc 0.4 % (<4) 09/05/18 07:00 Troponin I < 0.02 ng/mL (0-1.5) 09/05/18 07:00 Total Protein 5.5 g/dL (6.4-8.2) L 09/18/18 05:13 Albumin 2.5 g/dL (3.4-5.0) L 09/18/18 05:13 Globulin 3.0 g/dL (2.5-4.5) 09/18/18 05:13 Albumin/Globulin Ratio 0.8 Ratio (1.1-2.1) L 09/18/18 05:13 Triglycerides 185 mg/dL (0-150) H 09/05/18 07:00 Cholesterol 83 mg/dL (0-200) 09/05/18 07:00 LDL Cholesterol, Calc 37 mg/dL (0-100) 09/05/18 07:00 HDL Cholesterol 9 mg/dL (40-60) L 09/05/18 07:00 Cholesterol/HDL Ratio 9.2 (0.0-5.0) H 09/05/18 07:00 Alpha Fetoprotein 1 ng/mL (0-9) 09/06/18 05:15 Total PSA 0.81 ng/mL (0.13-4.0) 09/06/18 05:15 Vitamin B12 572 pg/mL (193-986) 09/13/18 11:04 Folate 7.7 ng/mL (>8.6) L 09/13/18 11:04 HCG, Quant < 1 mIU/mL 09/06/18 05:15 Specimen Type Clean catch urine 09/17/18 01:00 Urine Color Dark yellow (YELLOW) 09/17/18 01:00 Urine Appearance Clear (CLEAR) 09/17/18 01:00 Urine pH 5.0 (5.0 - 8.0) 09/17/18 01:00 Ur Specific [place] 1.020 (1.000-1.030) 09/17/18 01:00 Urine Protein 3+ (NEGATIVE) 09/17/18 01:00 Urine Glucose (UA) Negative (NEGATIVE) 09/17/18 01:00 Urine Ketones Negative (NEGATIVE) 09/17/18 01:00 Urine Occult Blood 1+ (NEGATIVE) 09/17/18 01:00 Urine Nitrite Negative (NEGATIVE) 09/17/18 01:00 Urine Bilirubin Negative (NEGATIVE) 09/17/18 01:00 Urine Urobilinogen Normal (NORMAL) 09/17/18 01:00 Ur Leukocyte Esterase 1+ (NEGATIVE) 09/17/18 01:00 Urine RBC 0-2 /HPF (NONE SEEN) 09/17/18 01:00 Urine WBC 30-50 /HPF (NONE SEEN) 09/17/18 01:00 Ur Squamous Epith Cells Rare /HPF (NEGATIVE) 09/17/18 01:00 Urine Bacteria Trace /HPF (NEGATIVE) 09/17/18 01:00 Hyaline Casts Rare /LPF (NEGATIVE) 09/17/18 01:00 Urine Mucus Moderate /HPF (NEGATIVE) 09/17/18 01:00 Ur Culture Indicated? Yes/culture set up 09/17/18 01:00 Stool Description Ifob 09/11/18 14:45 Stl Occult Blood (IFOB) Positive (NEGATIVE) A 09/11/18 14:45 Tissue Pathology To follow 09/13/18 09:41 Blood Type AB POSITIVE 09/11/18 10:17 Antibody Screen Negative 09/11/18 10:17 Crossmatch See Detail 09/11/18 10:17 - Plan (1) UTI (urinary tract infection) with pyuria Status: Acute Plan: IV FLUIDS, INVANZ 1G IV DAILY, CONTINUE TO MONITOR (2) Leukocytosis Status: Acute Qualifiers: Leukocytosis type: unspecified Qualified Code(s): D72.829 - Elevated white blood cell count, unspecified Plan: INVANZ 1G IV DAILY, CONTINUE TO MONITOR (3) Generalized weakness Status: Acute (4) Acute pain of left hip Status: Resolved (5) Testicular/scrotal pain Status: Acute Plan: CONTINUE TO MONITOR (6) COPD (chronic obstructive pulmonary disease) Status: Chronic Qualifiers: COPD type: unspecified COPD Qualified Code(s): J44.9 - Chronic obstructive pulmonary disease, unspecified (7) Anemia Status: Acute Qualifiers: Anemia type: iron deficiency Iron deficiency 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
--- NOTE | 2018-09-18 19:35 | PCM.PROG ---
Progress Note - Progress Note for Day of Date of Exam: 09/18/18 - Subjective Subjective: WAS ADMITTED FOR UTI, LEUKOCYTOSIS, GENERALIZED WEAKNESS, AND LEFT HIP PAIN. WE FOUND A LESION TO THE TESTICLE FOR WHICH HE WILL REQUIRE A UROLOGY CONSULT AFTER DISCHARGE. URINE AND BLOOD CULTURES WERE POSITIVE FOR GROWTH OF E.COLI. REPEAT CULTURES WERE OBTAINED AND ARE NEGATIVE. TODAY, HE IS LYING IN BED WITH EYES CLOSED ON MORNING ROUNDS. HE AWAKENS TO VERBAL STIMULI, BUT CONTINUES TO BE DISORIENTED. HE CONTINUES WITH GENERALIZED WEAKNESS TODAY. THERE HAS BEEN A CHANGE IN HIS ABILITY TO PERFORM ADLs. HE REQUIRES MODERATE ASSISTANCE. ON EXAMINATION, HEART IS REGULAR IN RATE AND RHYTHM. BILATERAL LUNGS ARE NOTED WITH DIMINISHED LUNG SOUNDS. ABDOMEN IS ROUND, SOFT, AND NON-TENDER. NORMAL BOWEL SOUND ARE NOTED IN ALL QUADRANTS. HE CONTINUES WITH PITTING EDEMA NOTED TO UPPER AND LOWER EXTREMITIES. HE APPEARS TO BE SLIGHTLY MORE SWOLLEN TODAY. HIS VITALS THIS MORNING ARE 100.1-98-20-96%-123/89. HE HAS BEEN FEBRILE THROUGHOUT THE NIGHT. LABS WERE OBTAINED. ABNORMAL LAB VALUES INCLUDE THE FOLLOWING: WBC 13.2, RBC 2.52, HGB 8.2, HCT 24.8, PLT COUNT 548, CALCIUM 10.4, TOTAL PROTEIN 5.5, ALBUMIN 2.5. HE IS CURRENTLY RECEIVING INVANZ 1G IV DAILY FOR INFECTION IN BLOOD AND URINE AND DIFLUCAN 100MG PO DAILY FOR TERESSA ESOPHAGITIS. WE WILL CONTINUE WITH CURRENT PLAN OF CARE TODAY. WE DISCUSSED PLACEMENT AT A LONGTERM CARE FACILITY DUE TO PATIENT BEING UNABLE TO CARE FOR HIMSELF AT HOME. HIS SON IS IN AGREEMENT AND WISHES TO PROCEED WITH PLACEMENT. WE WILL DISCUSS THIS WITH CASE MANAGEMENT. OTHERWISE, WE WILL FOLLOW UP WITH AM LABS AND CONTINUE TO MONITOR. - Past Medical Family Social History Past Med/Fam/Surg Hx: No changes since H&P Allergies: Allergies No Known Drug Allergies Allergy (Verified 09/04/18 13:24) - Review of Systems ROS: No change since H&P - Vital Signs and I&O's Vital Signs: Temperature 101.9 F Pulse Rate [Left Radial] 99 Pulse Rate 116 Respiratory Rate 20 Blood Pressure [Left Arm] 113/68 Blood Pressure [Right Arm] 131/82 Blood Pressure 135/86 O2 Sat by Pulse Oximetry 93 Intake and Output: Intake & Output 09/16/18 09/17/18 09/18/18 05/22/19 11:59 11:59 11:59 11:59 Intake Total 1939 1190 / 1190 715 / 715 Output Total 1000 / 1000 1225 / 1225 700 / 700 Balance 1939 1070 / 1070 -35 / -35 - Physical Exam Oriented: Not Oriented Eyes: Normal Ear: Normal Nose: Normal Throat: Normal Respiratory: Generalized, Diminished, Wheezes Cardiovascular: Edema (1+ PITTING EDEMA TO UPPER AND LOWER EXTREMITIES ) : Other (SCROTAL PAIN) Auscultation: Bowel Sounds: Decreased Tenderness: Normal (diffuse tenderness with moderate distention , BS+) Skin: Bruising Musculoskeletal: Normal Psychiatric: Normal Mood Description: Calm Affect: Normal Speech Pattern: Unclear, Delayed - Laboratory and Diagnostics Result Diagrams: 09/18/18 18:21 09/18/18 05:13 Labs: 09/16/18 23:23 Blood Blood Culture - Preliminary 09/16/18 23:31 Blood Blood Culture - Preliminary 09/17/18 01:00 Urine,Clean Catch Urine Culture - Preliminary 09/10/18 14:05 Blood Blood Culture - Final 09/10/18 13:18 Blood Blood Culture - Final 09/04/18 16:36 Blood Blood Culture - Final Escherichia Coli 09/04/18 17:24 Urine,Clean Catch Urine Culture - Final Escherichia Coli Laboratory WBC 13.2 X10^3/uL (3.6-10.0) H 09/18/18 05:13 RBC 2.52 X10^6/uL (4.7-6.0) L 09/18/18 05:13 Hgb 7.5 g/dL (13.5-18.0) L 09/18/18 18:21 Hct 22.6 % (42.0-54.0) L 09/18/18 18:21 MCV 98.1 fL (80.0-100.0) 09/18/18 05:13 MCH 32.6 pg (27.0-34.0) 09/18/18 05:13 MCHC 33.2 g/dL (33.0-35.0) 09/18/18 05:13 RDW 14.3 % (11.6-16.5) 09/18/18 05:13 Plt Count 548 X10^3/uL (150.0-450.0) H 09/18/18 05:13 Plt Count Comment Increased (ADEQUATE) 09/16/18 05:39 MPV 6.4 fL (7.4-11.0) L 09/18/18 05:13 Neut % (Auto) 81.2 % (42.0-75.0) H 09/18/18 05:13 Lymph % (Auto) 7.0 % (21.0-51.0) L 09/18/18 05:13 [place] % (Auto) 10.1 % (0.0-13.0) 09/18/18 05:13 Eos % (Auto) 1.0 % (0.9-2.9) 09/18/18 05:13 Baso % (Auto) 0.7 % (0.2-1.0) 09/18/18 05:13 Neut # (Auto) 10.7 x10^3/uL (2.2-4.8) H 09/18/18 05:13 Lymph # (Auto) 0.9 X10^3/uL (1.3-2.9) L 09/18/18 05:13 [place] # (Auto) 1.3 x10^3/uL (0.3-0.8) H 09/18/18 05:13 Eos # (Auto) 0.1 x10^3/uL (0.0-0.2) 09/18/18 05:13 Baso # (Auto) 0.1 X10^3/uL (0.0-0.1) 09/18/18 05:13 Absolute Nucleated RBC 0.0 /100WBC 09/18/18 05:13 Total Counted 100 09/10/18 04:50 Neutrophils % (Manual) 91 % (39-76) H 09/10/18 04:50 Lymphocytes % (Manual) 4 % (13-43) L 09/10/18 04:50 Monocytes % (Manual) 5 % (4-9) 09/10/18 04:50 Plt Morphology Comment Normal (NORMAL) 09/16/18 05:39 RBC Morphology Normal (NORMAL) 09/16/18 05:39 Hypochromasia Slight A 09/12/18 04:29 Sodium 140 mmol/L (136-145) 09/18/18 05:13 Corrected Sodium TNP 09/18/18 05:13 Potassium 3.6 mmol/L (3.5-5.1) 09/18/18 05:13 Chloride 104 mmol/L (98-107) 09/18/18 05:13 Carbon Dioxide 28.5 mmol/L (21-32) 09/18/18 05:13 BUN 7 mg/dL (7-18) 09/18/18 05:13 Creatinine 1.14 mg/dL (0.70-1.30) 09/18/18 05:13 Est GFR (MDRD) Af Amer > 60 (>60) 09/18/18 05:13 Est GFR (MDRD) Non-Af > 60 (>60) 09/18/18 05:13 Glucose 84 mg/dL (65-99) 09/18/18 05:13 Lactic Acid 0.6 mmol/L (0.4-2.0) 09/16/18 17:40 Calcium 10.4 mg/dL (8.5-10.1) H 09/18/18 05:13 Corrected Calcium 11.6 mg/dL (8.5-10.1) H 09/18/18 05:13 Magnesium 1.8 mg/dL (1.7-2.9) 09/18/18 05:13 Iron 10 ug/dL (50-175) L 09/13/18 11:04 TIBC 94 ug/dL (250-450) L 09/13/18 11:04 Ferritin 565 ng/mL (26-388) H 09/13/18 11:04 Total Bilirubin 0.50 mg/dL (0.2-1.0) 09/18/18 05:13 AST 19 Units/L (15-37) 09/18/18 05:13 ALT 21 Units/L (12-78) 09/18/18 05:13 Alkaline Phosphatase 62 Units/L (46-116) 09/18/18 05:13 Creatine Kinase 321 Units/L (39-308) H 09/05/18 07:00 CK-MB (CK-2) 1.2 ng/mL (0-4.0) 09/05/18 07:00 CK/CKMB % Calc 0.4 % (<4) 09/05/18 07:00 Troponin I < 0.02 ng/mL (0-1.5) 09/05/18 07:00 Total Protein 5.5 g/dL (6.4-8.2) L 09/18/18 05:13 Albumin 2.5 g/dL (3.4-5.0) L 09/18/18 05:13 Globulin 3.0 g/dL (2.5-4.5) 09/18/18 05:13 Albumin/Globulin Ratio 0.8 Ratio (1.1-2.1) L 09/18/18 05:13 Triglycerides 185 mg/dL (0-150) H 09/05/18 07:00 Cholesterol 83 mg/dL (0-200) 09/05/18 07:00 LDL Cholesterol, Calc 37 mg/dL (0-100) 09/05/18 07:00 HDL Cholesterol 9 mg/dL (40-60) L 09/05/18 07:00 Cholesterol/HDL Ratio 9.2 (0.0-5.0) H 09/05/18 07:00 Alpha Fetoprotein 1 ng/mL (0-9) 09/06/18 05:15 Total PSA 0.81 ng/mL (0.13-4.0) 09/06/18 05:15 Vitamin B12 572 pg/mL (193-986) 09/13/18 11:04 Folate 7.7 ng/mL (>8.6) L 09/13/18 11:04 HCG, Quant < 1 mIU/mL 09/06/18 05:15 Specimen Type Clean catch urine 09/17/18 01:00 Urine Color Dark yellow (YELLOW) 09/17/18 01:00 Urine Appearance Clear (CLEAR) 09/17/18 01:00 Urine pH 5.0 (5.0 - 8.0) 09/17/18 01:00 Ur Specific [place] 1.020 (1.000-1.030) 09/17/18 01:00 Urine Protein 3+ (NEGATIVE) 09/17/18 01:00 Urine Glucose (UA) Negative (NEGATIVE) 09/17/18 01:00 Urine Ketones Negative (NEGATIVE) 09/17/18 01:00 Urine Occult Blood 1+ (NEGATIVE) 09/17/18 01:00 Urine Nitrite Negative (NEGATIVE) 09/17/18 01:00 Urine Bilirubin Negative (NEGATIVE) 09/17/18 01:00 Urine Urobilinogen Normal (NORMAL) 09/17/18 01:00 Ur Leukocyte Esterase 1+ (NEGATIVE) 09/17/18 01:00 Urine RBC 0-2 /HPF (NONE SEEN) 09/17/18 01:00 Urine WBC 30-50 /HPF (NONE SEEN) 09/17/18 01:00 Ur Squamous Epith Cells Rare /HPF (NEGATIVE) 09/17/18 01:00 Urine Bacteria Trace /HPF (NEGATIVE) 09/17/18 01:00 Hyaline Casts Rare /LPF (NEGATIVE) 09/17/18 01:00 Urine Mucus Moderate /HPF (NEGATIVE) 09/17/18 01:00 Ur Culture Indicated? Yes/culture set up 09/17/18 01:00 Stool Description Ifob 09/11/18 14:45 Stl Occult Blood (IFOB) Positive (NEGATIVE) A 09/11/18 14:45 Tissue Pathology To follow 09/13/18 09:41 Blood Type AB POSITIVE 09/11/18 10:17 Antibody Screen Negative 09/11/18 10:17 Crossmatch See Detail 09/11/18 10:17 - Plan (1) UTI (urinary tract infection) with pyuria Status: Acute Plan: IV FLUIDS, INVANZ 1G IV DAILY, CONTINUE TO MONITOR (2) Leukocytosis Status: Acute Qualifiers: Leukocytosis type: unspecified Qualified Code(s): D72.829 - Elevated white blood cell count, unspecified Plan: INVANZ 1G IV DAILY, CONTINUE TO MONITOR (3) Generalized weakness Status: Acute (4) Acute pain of left hip Status: Resolved (5) Testicular/scrotal pain Status: Acute Plan: CONTINUE TO MONITOR (6) COPD (chronic obstructive pulmonary disease) Status: Chronic Qualifiers: COPD type: unspecified COPD Qualified Code(s): J44.9 - Chronic obstructive pulmonary disease, unspecified (7) Anemia Status: Acute Qualifiers: Anemia type: iron deficiency Iron deficiency anemia type: chronic blood loss Qualified Code(s): D50.0 - Iron deficiency anemia secondary to blood loss (chronic) Plan: CONTINUE TO MONITOR (8) Teressa esophagitis Status: Acute Plan: DIFLUCAN 100MG PO DAILY, NYSTATIN SWISH AND SWALLOW 5ML PO QID, CONTINUE TO MONITOR (9) Altered mental status Status: Acute Qualifiers: Altered mental status type: transient alteration of awareness Qualified Code(s): R40.4 - Transient alteration of awareness Plan: CONTINUE TO MONITOR
[2018-09-18] MEDS: COLACE CAP 100 MG PO SCH (20:35)
[2018-09-18] MEDS: FLOMAX PO SCH (20:35)
[2018-09-18] MEDS: DESYREL PO SCH (21:30)
[2018-09-19 05:28] LABS: BASOPHILS # (AUTO) 0.1 X10^3/uL (0.0-0.1); BASOPHILS % (AUTO) 0.7 % (0.2-1.0); EOSINOPHILS # (AUTO) 0.2 x10^3/uL (0.0-0.2); EOSINOPHILS % (AUTO) 1.6 % (0.9-2.9); HEMATOCRIT 24.2 % (42.0-54.0); LYMPHOCYTES # (AUTO) 1.1 X10^3/uL (1.3-2.9); MEAN CORPUSCULAR HEMOGLOBIN 32.2 pg (27.0-34.0); MEAN CORPUSCULAR VOLUME 97.4 fL (80.0-100.0); MEAN PLATELET VOLUME 6.8 fL (7.4-11.0); MONOCYTES # (AUTO) 1.4 x10^3/uL (0.3-0.8); MONOCYTES % (AUTO) 11.4 % (0.0-13.0); NEUTROPHILS # (AUTO) 9.6 x10^3/uL (2.2-4.8); NEUTROPHILS % (AUTO) 77.3 % (42.0-75.0); PLATELET COUNT 550 X10^3/uL (150.0-450.0); RED BLOOD COUNT 2.48 X10^6/uL (4.7-6.0); RED CELL DISTRIBUTION WIDTH 14.5 % (11.6-16.5); WHITE BLOOD COUNT 12.4 X10^3/uL (3.6-10.0)
[2018-09-19] MEDS: NS 1000 ML 1,000 ML IV SCH (05:28)
[2018-09-19 05:30] LABS: ALANINE AMINOTRANSFERASE 18 Units/L (12-78); ALBUMIN 2.4 g/dL (3.4-5.0); ALKALINE PHOSPHATASE 60 Units/L (46-116); ASPARTATE AMINO TRANSFERASE 16 Units/L (15-37); BLOOD UREA NITROGEN 8 mg/dL (7-18); CALCIUM 10.8 mg/dL (8.5-10.1); CARBON DIOXIDE 27.9 mmol/L (21-32); CHLORIDE 106 mmol/L (98-107); COR CA(FOR HYPOALB) 12.1 mg/dL (8.5-10.1); CREATININE 1.04 mg/dL (0.70-1.30); SODIUM 141 mmol/L (136-145); TOTAL PROTEIN 5.3 g/dL (6.4-8.2); eGFR NON BLACK RACES > 60 (>60)
[2018-09-19] MEDS: K-DUR TAB 20 MEQ PO PRN (06:22)
[2018-09-19] MEDS: MAGNESIUM SULFATE 1 GRAM/100 mL PREMIX 1 GM/100 ML BAG IV PRN ×2 (06:23→11:34)
[2018-09-19] MEDS: NICOTINE PATCH TD SCH (08:52)
[2018-09-19] MEDS: PEPCID 20 MG IV PREMIX* 20 MG/50 ML BAG IV SCH ×2 (08:53→21:35)
[2018-09-19] MEDS: NYSTATIN SUSP MT SCH ×4 (08:54→21:34)
[2018-09-19] MEDS: PROTONIX INJ 40 MG VIAL IVP SCH ×2 (08:54→21:35)
[2018-09-19] MEDS: WELLBUTRIN XL 150 MG (DAILY) PO SCH (08:54)
[2018-09-19] MEDS: DIFLUCAN PO SCH (08:54)
[2018-09-19] MEDS: SINGULAIR TAB 10 MG PO SCH (08:54)
[2018-09-19] MEDS: LIBRIUM PO SCH ×2 (08:54→21:33)
[2018-09-19] MEDS: INVANZ INJ 1 GM VIAL 1 GM in NS 100 ML IV + SPIKE MINIBAG* 100 ML IV SCH (08:55)
[2018-09-19] MEDS: NYSTATIN POWDER TOP SCH ×2 (09:05→21:34)
[2018-09-19] MEDS: ALBUMIN HUMAN 25%- 100 ML 100 ML IV SCH (09:06)
[2018-09-19] MEDS: MILK OF MAGNESIA PO SCH ×2 (09:06→21:34)
[2018-09-19] MEDS: CHECK PATCH XX SCH ×2 (09:07→21:30)
[2018-09-19] MEDS: CYMBALTA PO SCH (10:09)
[2018-09-19] MEDS: TYLENOL 325 MG TAB PO PRN (11:33)
[2018-09-19] MEDS: NS 1000 ML 1,000 ML with THIAMINE HCL INJ 100 MG, MAGNESIUM SULFATE 50% INJ 1 G, MVI IN... IV SCH ×5 (17:54)
[2018-09-19 17:58] LABS: HEMATOCRIT 22.2 % (42.0-54.0); HEMOGLOBIN 7.5 g/dL (13.5-18.0)
[2018-09-19] MEDS: DESYREL PO SCH (21:31)
[2018-09-19] MEDS: COLACE CAP 100 MG PO SCH (21:31)
[2018-09-19] MEDS: FLOMAX PO SCH (21:32)
[2018-09-20 05:35] LABS: BASOPHILS # (AUTO) 0.1 X10^3/uL (0.0-0.1); EOSINOPHILS # (AUTO) 0.2 x10^3/uL (0.0-0.2); EOSINOPHILS % (AUTO) 1.5 % (0.9-2.9); HEMATOCRIT 21.9 % (42.0-54.0); HEMOGLOBIN 7.5 g/dL (13.5-18.0); LYMPHOCYTES # (AUTO) 1.3 X10^3/uL (1.3-2.9); LYMPHOCYTES % (AUTO) 9.1 % (21.0-51.0); MEAN CORPUSCULAR HEMOGLOBIN 33.2 pg (27.0-34.0); MEAN CORPUSCULAR HGB CONC 34.3 g/dL (33.0-35.0); MEAN CORPUSCULAR VOLUME 96.7 fL (80.0-100.0); MEAN PLATELET VOLUME 6.9 fL (7.4-11.0); MONOCYTES % (AUTO) 14.6 % (0.0-13.0); NEUTROPHILS # (AUTO) 10.2 x10^3/uL (2.2-4.8); NEUTROPHILS % (AUTO) 73.8 % (42.0-75.0); PLATELET COUNT 537 X10^3/uL (150.0-450.0); RED BLOOD COUNT 2.26 X10^6/uL (4.7-6.0); RED CELL DISTRIBUTION WIDTH 14.6 % (11.6-16.5); WHITE BLOOD COUNT 13.8 X10^3/uL (3.6-10.0)
[2018-09-20 05:52] LABS: ALANINE AMINOTRANSFERASE 15 Units/L (12-78); ALBUMIN 2.5 g/dL (3.4-5.0); ALKALINE PHOSPHATASE 57 Units/L (46-116); ASPARTATE AMINO TRANSFERASE 15 Units/L (15-37); BLOOD UREA NITROGEN 6 mg/dL (7-18); CALCIUM 10.8 mg/dL (8.5-10.1); CARBON DIOXIDE 26.7 mmol/L (21-32); CHLORIDE 106 mmol/L (98-107); CREATININE 1.04 mg/dL (0.70-1.30); SODIUM 142 mmol/L (136-145); TOTAL PROTEIN 5.5 g/dL (6.4-8.2); eGFR NON BLACK RACES > 60 (>60)
[2018-09-20 06:14] LABS: BAND NEUTROPHILS % 4 % (0-10); PLATELET MORPHOLOGY COMMENT NORMAL (NORMAL)
[2018-09-20] MEDS: SINGULAIR TAB 10 MG PO SCH (08:29)
[2018-09-20] MEDS: PEPCID 20 MG IV PREMIX* 20 MG/50 ML BAG IV SCH ×2 (08:29→21:44)
[2018-09-20] MEDS: WELLBUTRIN XL 150 MG (DAILY) PO SCH (08:29)
[2018-09-20] MEDS: LIBRIUM PO SCH ×2 (08:29→21:36)
[2018-09-20] MEDS: INVANZ INJ 1 GM VIAL 1 GM in NS 100 ML IV + SPIKE MINIBAG* 100 ML IV SCH (08:29)
[2018-09-20] MEDS: NICOTINE PATCH TD SCH (08:29)
[2018-09-20] MEDS: DIFLUCAN PO SCH (08:29)
[2018-09-20] MEDS: ALBUMIN HUMAN 25%- 100 ML 100 ML IV SCH (08:30)
[2018-09-20] MEDS: NYSTATIN SUSP MT SCH ×3 (08:30→21:43)
[2018-09-20] MEDS: MAG-OX TAB PO SCH ×2 (08:30→21:45)
[2018-09-20] MEDS: CYMBALTA PO SCH (08:30)
[2018-09-20] MEDS: PROTONIX INJ 40 MG VIAL IVP SCH ×2 (08:31→21:44)
[2018-09-20] MEDS: LOVENOX INJ 40 MG SYR SC SCH (08:40)
[2018-09-20] MEDS: MILK OF MAGNESIA PO SCH ×2 (08:41→21:44)
[2018-09-20] MEDS: NYSTATIN POWDER TOP SCH ×2 (08:45→21:44)
[2018-09-20] MEDS: NS 1000 ML 1,000 ML IV SCH ×2 (10:10→21:37)
[2018-09-20] MEDS: CHECK PATCH XX SCH ×2 (10:11→21:35)
[2018-09-20] MEDS: DUONEB 0.5 MG/3 MG NEB SCH ×4 (12:35→20:15)
[2018-09-20 17:58] LABS: HEMATOCRIT 21.6 % (42.0-54.0); HEMOGLOBIN 7.2 g/dL (13.5-18.0)
[2018-09-20] MEDS: TYLENOL SUPP 650 MG PR PRN (20:03)
[2018-09-20] MEDS ORDERED: NS 500 ML IV 500 ML IV ONE (20:40)
--- NOTE | 2018-09-20 20:48 | PCM.PROG ---
Progress Note - Progress Note for Day of Date of Exam: 09/19/18 - Subjective Subjective: WAS ADMITTED FOR UTI, LEUKOCYTOSIS, GENERALIZED WEAKNESS, AND LEFT HIP PAIN. WE FOUND A LESION TO THE TESTICLE FOR WHICH HE WILL REQUIRE A UROLOGY CONSULT AFTER DISCHARGE. URINE AND BLOOD CULTURES WERE POSITIVE FOR GROWTH OF E.COLI. REPEAT CULTURES WERE OBTAINED AND ARE NEGATIVE. TODAY, HE IS LYING IN BED WITH EYES CLOSED ON MORNING ROUNDS. HE AWAKENS TO VERBAL STIMULI, BUT CONTINUES TO BE DISORIENTED. HE CONTINUES WITH GENERALIZED WEAKNESS TODAY. THERE HAS BEEN A CHANGE IN HIS ABILITY TO PERFORM ADLs. HE REQUIRES MODERATE ASSISTANCE. ON EXAMINATION, HEART IS REGULAR IN RATE AND RHYTHM. BILATERAL LUNGS ARE NOTED WITH DIMINISHED LUNG SOUNDS THROUGHOUT. ABDOMEN IS ROUND, SOFT, AND NON-TENDER. NORMAL BOWEL SOUND ARE NOTED IN ALL QUADRANTS. HE CONTINUES WITH PITTING EDEMA NOTED TO UPPER AND LOWER EXTREMITIES. HIS VITALS THIS MORNING ARE 98.6-95-22-98%-127/77. LABS WERE OBTAINED. ABNORMAL LAB VALUES INCLUDE THE FOLLOWING: WBC 12.4, RBC 2.48, HGB 8.0, HCT 24.2, PLT COUNT 550, CALCIUM 10.8, MAGENSIUM 1.6, TOTAL PROTEIN 5.3, ALBUMIN 2.4. HE IS CURRENTLY RECEIVING INVANZ 1G IV DAILY FOR INFECTION IN BLOOD AND URINE AND DIFLUCAN 100MG PO DAILY FOR TERESSA ESOPHAGITIS. WE WILL CONTINUE WITH CURRENT PLAN OF CARE TODAY. WE DISCUSSED PLACEMENT AT A [facility] FACILITY DUE TO PATIENT BEING UNABLE TO CARE FOR HIMSELF AT HOME. HIS SON IS IN AGREEMENT AND WISHES TO PROCEED WITH PLACEMENT. CASE MANAGEMENT IS FINDING PLACEMENT FOR PATIENT. OTHERWISE, WE WILL FOLLOW UP WITH AM LABS AND CONTINUE TO MONITOR. - Past Medical Family Social History Past Med/Fam/Surg Hx: No changes since H&P Allergies: Allergies No Known Drug Allergies Allergy (Verified 09/04/18 13:24) - Review of Systems ROS: No change since H&P - Vital Signs and I&O's Vital Signs: Temperature 98.7 F Pulse Rate [Left Radial] 88 Pulse Rate 100 Respiratory Rate 22 Blood Pressure [Left Arm] 108/69 Blood Pressure [Right Arm] 129/79 Blood Pressure 135/86 O2 Sat by Pulse Oximetry 92 Intake and Output: Intake & Output 09/18/18 09/19/18 09/20/18 09/21/18 11:59 11:59 11:59 11:59 Intake Total 1190 / 1190 1735 / 1735 2271 / 2271 640 / 640 Output Total 1225 / 1225 1350 / 1350 1050 / 1050 Balance -35 / -35 385 / 385 1221 / 1221 640 / 640 - Physical Exam Oriented: Not Oriented Eyes: Normal Ear: Normal Nose: Normal Throat: Normal Respiratory: Generalized, Diminished, Wheezes Cardiovascular: Edema (1+ PITTING EDEMA TO UPPER AND LOWER EXTREMITIES ) Auscultation: Bowel Sounds: Decreased Palpation: Normal Tenderness: Normal (diffuse tenderness with moderate distention , BS+) Skin: Bruising Musculoskeletal: Normal Psychiatric: Normal Mood Description: Calm Affect: Normal Speech Pattern: Clear, Appropriate - Laboratory and Diagnostics Result Diagrams: 09/20/18 17:48 09/20/18 04:53 Labs: 09/17/18 01:00 Urine,Clean Catch Urine Culture - Final 09/16/18 23:23 Blood Blood Culture - Preliminary 09/16/18 23:31 Blood Blood Culture - Preliminary 09/10/18 14:05 Blood Blood Culture - Final 09/10/18 13:18 Blood Blood Culture - Final 09/04/18 16:36 Blood Blood Culture - Final Escherichia Coli 09/04/18 17:24 Urine,Clean Catch Urine Culture - Final Escherichia Coli Laboratory WBC 13.8 X10^3/uL (3.6-10.0) H 09/20/18 04:53 RBC 2.26 X10^6/uL (4.7-6.0) L 09/20/18 04:53 Hgb 7.2 g/dL (13.5-18.0) L 09/20/18 17:48 Hct 21.6 % (42.0-54.0) L 09/20/18 17:48 MCV 96.7 fL (80.0-100.0) 09/20/18 04:53 MCH 33.2 pg (27.0-34.0) 09/20/18 04:53 MCHC 34.3 g/dL (33.0-35.0) 09/20/18 04:53 RDW 14.6 % (11.6-16.5) 09/20/18 04:53 Plt Count 537 X10^3/uL (150.0-450.0) H 09/20/18 04:53 Plt Count Comment Increased (ADEQUATE) 09/20/18 04:53 MPV 6.9 fL (7.4-11.0) L 09/20/18 04:53 Neut % (Auto) 73.8 % (42.0-75.0) 09/20/18 04:53 Lymph % (Auto) 9.1 % (21.0-51.0) L 09/20/18 04:53 [place] % (Auto) 14.6 % (0.0-13.0) H 09/20/18 04:53 Eos % (Auto) 1.5 % (0.9-2.9) 09/20/18 04:53 Baso % (Auto) 1.0 % (0.2-1.0) 09/20/18 04:53 Neut # (Auto) 10.2 x10^3/uL (2.2-4.8) H 09/20/18 04:53 Lymph # (Auto) 1.3 X10^3/uL (1.3-2.9) 09/20/18 04:53 [place] # (Auto) 2.0 x10^3/uL (0.3-0.8) H 09/20/18 04:53 Eos # (Auto) 0.2 x10^3/uL (0.0-0.2) 09/20/18 04:53 Baso # (Auto) 0.1 X10^3/uL (0.0-0.1) 09/20/18 04:53 Absolute Nucleated RBC 0.0 /100WBC 09/20/18 04:53 Total Counted 100 09/20/18 04:53 Neutrophils % (Manual) 78 % (39-76) H 09/20/18 04:53 Band Neutrophils % 4 % (0-10) 09/20/18 04:53 Lymphocytes % (Manual) 10 % (13-43) L 09/20/18 04:53 Monocytes % (Manual) 8 % (4-9) 09/20/18 04:53 Plt Morphology Comment Normal (NORMAL) 09/20/18 04:53 RBC Morphology Normal (NORMAL) 09/20/18 04:53 Hypochromasia Slight A 09/12/18 04:29 Sodium 142 mmol/L (136-145) 09/20/18 04:53 Corrected Sodium TNP 09/20/18 04:53 Potassium 3.9 mmol/L (3.5-5.1) 09/20/18 04:53 Chloride 106 mmol/L (98-107) 09/20/18 04:53 Carbon Dioxide 26.7 mmol/L (21-32) 09/20/18 04:53 BUN 6 mg/dL (7-18) L 09/20/18 04:53 Creatinine 1.04 mg/dL (0.70-1.30) 09/20/18 04:53 Est GFR (MDRD) Af Amer > 60 (>60) 09/20/18 04:53 Est GFR (MDRD) Non-Af > 60 (>60) 09/20/18 04:53 Glucose 80 mg/dL (65-99) 09/20/18 04:53 Lactic Acid 0.6 mmol/L (0.4-2.0) 09/16/18 17:40 Calcium 10.8 mg/dL (8.5-10.1) H 09/20/18 04:53 Corrected Calcium 12.0 mg/dL (8.5-10.1) H 09/20/18 04:53 Magnesium 1.4 mg/dL (1.7-2.9) L 09/20/18 04:53 Iron 10 ug/dL (50-175) L 09/13/18 11:04 TIBC 94 ug/dL (250-450) L 09/13/18 11:04 Ferritin 565 ng/mL (26-388) H 09/13/18 11:04 Total Bilirubin 0.50 mg/dL (0.2-1.0) 09/20/18 04:53 AST 15 Units/L (15-37) 09/20/18 04:53 ALT 15 Units/L (12-78) 09/20/18 04:53 Alkaline Phosphatase 57 Units/L (46-116) 09/20/18 04:53 Ammonia < 10 umol/L (11-32) L 09/20/18 14:31 Creatine Kinase 321 Units/L (39-308) H 09/05/18 07:00 CK-MB (CK-2) 1.2 ng/mL (0-4.0) 09/05/18 07:00 CK/CKMB % Calc 0.4 % (<4) 09/05/18 07:00 Troponin I < 0.02 ng/mL (0-1.5) 09/05/18 07:00 Total Protein 5.5 g/dL (6.4-8.2) L 09/20/18 04:53 Albumin 2.5 g/dL (3.4-5.0) L 09/20/18 04:53 Globulin 3.0 g/dL (2.5-4.5) 09/20/18 04:53 Albumin/Globulin Ratio 0.8 Ratio (1.1-2.1) L 09/20/18 04:53 Triglycerides 185 mg/dL (0-150) H 09/05/18 07:00 Cholesterol 83 mg/dL (0-200) 09/05/18 07:00 LDL Cholesterol, Calc 37 mg/dL (0-100) 09/05/18 07:00 HDL Cholesterol 9 mg/dL (40-60) L 09/05/18 07:00 Cholesterol/HDL Ratio 9.2 (0.0-5.0) H 09/05/18 07:00 Alpha Fetoprotein 1 ng/mL (0-9) 09/06/18 05:15 Total PSA 0.81 ng/mL (0.13-4.0) 09/06/18 05:15 Vitamin B12 572 pg/mL (193-986) 09/13/18 11:04 Folate 7.7 ng/mL (>8.6) L 09/13/18 11:04 HCG, Quant < 1 mIU/mL 09/06/18 05:15 Specimen Type Clean catch urine 09/17/18 01:00 Urine Color Dark yellow (YELLOW) 09/17/18 01:00 Urine Appearance Clear (CLEAR) 09/17/18 01:00 Urine pH 5.0 (5.0 - 8.0) 09/17/18 01:00 Ur Specific [place] 1.020 (1.000-1.030) 09/17/18 01:00 Urine Protein 3+ (NEGATIVE) 09/17/18 01:00 Urine Glucose (UA) Negative (NEGATIVE) 09/17/18 01:00 Urine Ketones Negative (NEGATIVE) 09/17/18 01:00 Urine Occult Blood 1+ (NEGATIVE) 09/17/18 01:00 Urine Nitrite Negative (NEGATIVE) 09/17/18 01:00 Urine Bilirubin Negative (NEGATIVE) 09/17/18 01:00 Urine Urobilinogen Normal (NORMAL) 09/17/18 01:00 Ur Leukocyte Esterase 1+ (NEGATIVE) 09/17/18 01:00 Urine RBC 0-2 /HPF (NONE SEEN) 09/17/18 01:00 Urine WBC 30-50 /HPF (NONE SEEN) 09/17/18 01:00 Ur Squamous Epith Cells Rare /HPF (NEGATIVE) 09/17/18 01:00 Urine Bacteria Trace /HPF (NEGATIVE) 09/17/18 01:00 Hyaline Casts Rare /LPF (NEGATIVE) 09/17/18 01:00 Urine Mucus Moderate /HPF (NEGATIVE) 09/17/18 01:00 Ur Culture Indicated? Yes/culture set up 09/17/18 01:00 Stool Description Ifob 09/11/18 14:45 Stl Occult Blood (IFOB) Positive (NEGATIVE) A 09/11/18 14:45 Tissue Pathology To follow 09/13/18 09:41 Blood Type AB POSITIVE 09/11/18 10:17 Antibody Screen Negative 09/11/18 10:17 Crossmatch See Detail 09/11/18 10:17 - Plan (1) UTI (urinary tract infection) with pyuria Status: Acute Plan: IV FLUIDS, INVANZ 1G IV DAILY, CONTINUE TO MONITOR (2) Leukocytosis Status: Acute Qualifiers: Leukocytosis type: unspecified Qualified Code(s): D72.829 - Elevated white blood cell count, unspecified Plan: INVANZ 1G IV DAILY, CONTINUE TO MONITOR (3) Generalized weakness Status: Acute (4) Acute pain of left hip Status: Resolved (5) Testicular/scrotal pain Status: Acute Plan: CONTINUE TO MONITOR (6) COPD (chronic obstructive pulmonary disease) Status: Chronic Qualifiers: COPD type: unspecified COPD Qualified Code(s): J44.9 - Chronic obstructive pulmonary disease, unspecified (7) Anemia Status: Acute Qualifiers: Anemia type: iron deficiency Iron deficiency anemia type: chronic blood loss Qualified Code(s): D50.0 - Iron deficiency anemia secondary to blood loss (chronic) Plan: MONITOR H&H, CONTINUE TO MONITOR (8) Teressa esophagitis Status: Acute Plan: DIFLUCAN 100MG PO DAILY, NYSTATIN SWISH AND SWALLOW 5ML PO QID, CONTINUE TO MONITOR (9) Altered mental status Status: Acute Qualifiers: Altered mental status type: transient alteration of awareness Qualified Code(s): R40.4 - Transient alteration of awareness Plan: CONTINUE TO MONITOR
[2018-09-20] MEDS: COLACE CAP 100 MG PO SCH (21:43)
[2018-09-20] MEDS: DESYREL PO SCH (21:45)
[2018-09-20] MEDS: FLOMAX PO SCH (21:45)
[2018-09-20] MEDS: MORPHINE SULFATE INJ 2 MG INJ IVP PRN (23:25)
[2018-09-21] MEDS: MORPHINE SULFATE INJ 2 MG INJ IVP PRN ×6 (00:35→07:59)
[2018-09-21 06:09] LABS: BASOPHILS # (AUTO) 0.1 X10^3/uL (0.0-0.1); BASOPHILS % (AUTO) 0.5 % (0.2-1.0); EOSINOPHILS # (AUTO) 0.1 x10^3/uL (0.0-0.2); EOSINOPHILS % (AUTO) 0.4 % (0.9-2.9); HEMATOCRIT 21.3 % (42.0-54.0); LYMPHOCYTES # (AUTO) 1.1 X10^3/uL (1.3-2.9); LYMPHOCYTES % (AUTO) 5.2 % (21.0-51.0); MEAN CORPUSCULAR HEMOGLOBIN 31.9 pg (27.0-34.0); MEAN CORPUSCULAR HGB CONC 32.9 g/dL (33.0-35.0); MEAN PLATELET VOLUME 6.6 fL (7.4-11.0); MONOCYTES # (AUTO) 3.1 x10^3/uL (0.3-0.8); MONOCYTES % (AUTO) 14.4 % (0.0-13.0); NEUTROPHILS # (AUTO) 17.1 x10^3/uL (2.2-4.8); NEUTROPHILS % (AUTO) 79.5 % (42.0-75.0); PLATELET COUNT 564 X10^3/uL (150.0-450.0); RED CELL DISTRIBUTION WIDTH 14.4 % (11.6-16.5); WHITE BLOOD COUNT 21.5 X10^3/uL (3.6-10.0)
[2018-09-21 06:22] LABS: ALANINE AMINOTRANSFERASE 13 Units/L (12-78); ALBUMIN 2.4 g/dL (3.4-5.0); ALKALINE PHOSPHATASE 54 Units/L (46-116); ASPARTATE AMINO TRANSFERASE 13 Units/L (15-37); BLOOD UREA NITROGEN 8 mg/dL (7-18); CALCIUM 10.9 mg/dL (8.5-10.1); CHLORIDE 108 mmol/L (98-107); COR CA(FOR HYPOALB) 12.2 mg/dL (8.5-10.1); CREATININE 1.08 mg/dL (0.70-1.30); SODIUM 143 mmol/L (136-145); TOTAL PROTEIN 5.3 g/dL (6.4-8.2); eGFR NON BLACK RACES > 60 (>60)
--- NOTE | 2018-09-21 06:23 | RAD ---
AP chest Indication: Coughing Comparison: 09/15/2018 Findings: Linear consolidation within the mid right lung with right lung volume loss consistent with atelectasis, clinical correlation is needed as this may represent mucoid impaction. Reticular opacities within the left lower lobe represent either infiltrate or subsegmental atelectasis. No significant effusion. No pneumothorax. Heart size is enlarged, unchanged. Stable positioning of left-sided subclavian central venous catheter without pneumothorax. Impression: 1.Linear opacity within the right mid lung with volume loss is consistent with subsegmental atelectasis, clinical correlation for mucoid impaction is recommended. 2. Reticular opacities within the left lower lobe represent either subsegmental atelectasis or developing infiltrate. 3. Stable cardiomegaly. Reported By:
[2018-09-21 06:27] LABS: PLATELET MORPHOLOGY COMMENT NORMAL (NORMAL)
[2018-09-21] MEDS: NYSTATIN SUSP MT SCH ×2 (07:52→09:39)
[2018-09-21] MEDS: DUONEB 0.5 MG/3 MG NEB SCH (09:00)
[2018-09-21] MEDS: WELLBUTRIN XL 150 MG (DAILY) PO SCH (09:38)
[2018-09-21] MEDS: CYMBALTA PO SCH (09:38)
[2018-09-21] MEDS: MILK OF MAGNESIA PO SCH (09:39)
[2018-09-21] MEDS: SINGULAIR TAB 10 MG PO SCH (09:39)
[2018-09-21] MEDS: MAG-OX TAB PO SCH (09:39)
[2018-09-21] MEDS: LIBRIUM PO SCH (09:40)
[2018-09-21] MEDS: DIFLUCAN PO SCH (09:40)
[2018-09-21] MEDS: CHECK PATCH XX SCH ×2 (09:40→21:00)
[2018-09-21] MEDS: NICOTINE PATCH TD SCH (09:41)
[2018-09-21] MEDS ORDERED: VERSED 100 MG in NS 100 ML IV 80 ML IV PRN (09:56)
[2018-09-21] MEDS: MORPHINE SULFATE PCA 30 MG IVP PRN ×2 (11:09→17:26)
[2018-09-21 21:15] VITALS: BP 54/29
--- NOTE | 2018-09-22 16:34 | PCM.PROG ---
Progress Note - Progress Note for Day of Date of Exam: 09/20/18 - Subjective Subjective: WAS ADMITTED FOR UTI, LEUKOCYTOSIS, GENERALIZED WEAKNESS, AND LEFT HIP PAIN. WE FOUND A LESION TO THE TESTICLE FOR WHICH HE WILL REQUIRE A UROLOGY CONSULT AFTER DISCHARGE. URINE AND BLOOD CULTURES WERE POSITIVE FOR GROWTH OF E.COLI. REPEAT CULTURES WERE OBTAINED AND ARE NEGATIVE. TODAY, HE IS LYING IN BED WITH EYES CLOSED ON MORNING ROUNDS. HE AWAKENS TO VERBAL STIMULI, BUT CONTINUES TO BE DISORIENTED. HE CONTINUES WITH GENERALIZED WEAKNESS TODAY. HE REQUIRES MAXIMUM ASSISTANCE FOR ADLs AND IS NOT ABLE TO PARTICIPATE WITH PHYSICAL THERAPY. ON EXAMINATION, HEART IS REGULAR IN RATE AND RHYTHM. BILATERAL LUNGS ARE NOTED WITH DIMINISHED LUNG SOUNDS THROUGHOUT. ABDOMEN IS ROUND, SOFT, AND NON-TENDER. NORMAL BOWEL SOUND ARE NOTED IN ALL QUADRANTS. HE CONTINUES WITH PITTING EDEMA NOTED TO UPPER AND LOWER EXTREMITIES. HIS VITALS THIS MORNING ARE 99.3-84-20-96%-108/69. LABS WERE OBTAINED. ABNORMAL LAB VALUES INCLUDE THE FOLLOWING: WBC 13.8, RBC 2.26, HGB 7.5, HCT 21.9, PLT COUNT 537, BUN 6, CALCIUM 10.8, MAGNESIUM 1.4, TOTAL PROTEIN 5.45, ALBUMIN 2.5. HE IS CURRENTLY RECEIVING INVANZ 1G IV DAILY FOR INFECTION IN BLOOD AND URINE AND DIFLUCAN 100MG PO DAILY FOR TERESSA ESOPHAGITIS. WE WILL CONTINUE WITH CURRENT PLAN OF CARE TODAY. CASE MANAGEMENT IS WORKING ON PLACEMENT AT A [facility]. WE WILL MONITOR HIS HEMOGLOBIN TODAY AND TRANSFUSE PRBC IF NEEDED. OTHERWISE, WE WILL FOLLOW UP WITH AM LABS AND CONTINUE TO MONITOR. - Past Medical Family Social History Past Med/Fam/Surg Hx: No changes since H&P Allergies: Allergies No Known Drug Allergies Allergy (Verified 09/04/18 13:24) - Review of Systems ROS: No change since H&P - Vital Signs and I&O's Vital Signs: Temperature 99.9 F Pulse Rate [Left Radial] 108 Pulse Rate 49 Respiratory Rate 16 Blood Pressure [Left Arm] 54/29 Blood Pressure [Right Arm] 129/79 Blood Pressure 135/86 O2 Sat by Pulse Oximetry 91 Intake and Output: Intake & Output 09/20/18 09/21/18 09/22/18 09/23/18 11:59 11:59 11:59 11:59 Intake Total 2271 / 2271 1440 / 1440 80 / 80 Output Total 1050 / 1050 300 / 300 100 / 100 Balance 1221 / 1221 1140 / 1140 -20 / -20 - Physical Exam Oriented: Not Oriented Eyes: Normal Ear: Normal Nose: Normal Throat: Normal Respiratory: Generalized, Diminished, Wheezes Cardiovascular: Edema (1+ PITTING EDEMA TO UPPER AND LOWER EXTREMITIES ) : Other (SCROTAL PAIN) Auscultation: Bowel Sounds: Decreased Palpation: Normal Tenderness: Normal (diffuse tenderness with moderate distention , BS+) Skin: Bruising Musculoskeletal: Normal Psychiatric: Normal Mood Description: Calm Affect: Normal Speech Pattern: Unclear - Laboratory and Diagnostics Result Diagrams: 09/21/18 05:45 09/21/18 05:45 Labs: 09/16/18 23:31 Blood Blood Culture - Final 09/16/18 23:23 Blood Blood Culture - Final 09/17/18 01:00 Urine,Clean Catch Urine Culture - Final 09/10/18 14:05 Blood Blood Culture - Final 09/10/18 13:18 Blood Blood Culture - Final 09/04/18 16:36 Blood Blood Culture - Final Escherichia Coli 09/04/18 17:24 Urine,Clean Catch Urine Culture - Final Escherichia Coli Laboratory WBC 21.5 X10^3/uL (3.6-10.0) H 09/21/18 05:45 RBC 2.20 X10^6/uL (4.7-6.0) L 09/21/18 05:45 Hgb 7.0 g/dL (13.5-18.0) L 09/21/18 05:45 Hct 21.3 % (42.0-54.0) L 09/21/18 05:45 MCV 97.0 fL (80.0-100.0) 09/21/18 05:45 MCH 31.9 pg (27.0-34.0) 09/21/18 05:45 MCHC 32.9 g/dL (33.0-35.0) L 09/21/18 05:45 RDW 14.4 % (11.6-16.5) 09/21/18 05:45 Plt Count 564 X10^3/uL (150.0-450.0) H 09/21/18 05:45 Plt Count Comment Increased (ADEQUATE) 09/21/18 05:45 MPV 6.6 fL (7.4-11.0) L 09/21/18 05:45 Neut % (Auto) 79.5 % (42.0-75.0) H 09/21/18 05:45 Lymph % (Auto) 5.2 % (21.0-51.0) L 09/21/18 05:45 [place] % (Auto) 14.4 % (0.0-13.0) H 09/21/18 05:45 Eos % (Auto) 0.4 % (0.9-2.9) L 09/21/18 05:45 Baso % (Auto) 0.5 % (0.2-1.0) 09/21/18 05:45 Neut # (Auto) 17.1 x10^3/uL (2.2-4.8) H 09/21/18 05:45 Lymph # (Auto) 1.1 X10^3/uL (1.3-2.9) L 09/21/18 05:45 [place] # (Auto) 3.1 x10^3/uL (0.3-0.8) H 09/21/18 05:45 Eos # (Auto) 0.1 x10^3/uL (0.0-0.2) 09/21/18 05:45 Baso # (Auto) 0.1 X10^3/uL (0.0-0.1) 09/21/18 05:45 Absolute Nucleated RBC 0.0 /100WBC 09/21/18 05:45 Total Counted 100 09/21/18 05:45 Neutrophils % (Manual) 82 % (39-76) H 09/21/18 05:45 Band Neutrophils % 4 % (0-10) 09/20/18 04:53 Lymphocytes % (Manual) 8 % (13-43) L 09/21/18 05:45 Monocytes % (Manual) 10 % (4-9) H 09/21/18 05:45 Plt Morphology Comment Normal (NORMAL) 09/21/18 05:45 RBC Morphology Normal (NORMAL) 09/21/18 05:45 Hypochromasia Slight A 09/12/18 04:29 Sodium 143 mmol/L (136-145) 09/21/18 05:45 Corrected Sodium TNP 09/21/18 05:45 Potassium 4.6 mmol/L (3.5-5.1) 09/21/18 05:45 Chloride 108 mmol/L (98-107) H 09/21/18 05:45 Carbon Dioxide 29.0 mmol/L (21-32) 09/21/18 05:45 BUN 8 mg/dL (7-18) 09/21/18 05:45 Creatinine 1.08 mg/dL (0.70-1.30) 09/21/18 05:45 Est GFR (MDRD) Af Amer > 60 (>60) 09/21/18 05:45 Est GFR (MDRD) Non-Af > 60 (>60) 09/21/18 05:45 Glucose 76 mg/dL (65-99) 09/21/18 05:45 Lactic Acid 0.6 mmol/L (0.4-2.0) 09/16/18 17:40 Calcium 10.9 mg/dL (8.5-10.1) H 09/21/18 05:45 Corrected Calcium 12.2 mg/dL (8.5-10.1) H 09/21/18 05:45 Magnesium 1.4 mg/dL (1.7-2.9) L 09/21/18 05:45 Iron 10 ug/dL (50-175) L 09/13/18 11:04 TIBC 94 ug/dL (250-450) L 09/13/18 11:04 Ferritin 565 ng/mL (26-388) H 09/13/18 11:04 Total Bilirubin 0.50 mg/dL (0.2-1.0) 09/21/18 05:45 AST 13 Units/L (15-37) L 09/21/18 05:45 ALT 13 Units/L (12-78) 09/21/18 05:45 Alkaline Phosphatase 54 Units/L (46-116) 09/21/18 05:45 Ammonia < 10 umol/L (11-32) L 09/20/18 14:31 Creatine Kinase 321 Units/L (39-308) H 09/05/18 07:00 CK-MB (CK-2) 1.2 ng/mL (0-4.0) 09/05/18 07:00 CK/CKMB % Calc 0.4 % (<4) 09/05/18 07:00 Troponin I < 0.02 ng/mL (0-1.5) 09/05/18 07:00 Total Protein 5.3 g/dL (6.4-8.2) L 09/21/18 05:45 Albumin 2.4 g/dL (3.4-5.0) L 09/21/18 05:45 Globulin 2.9 g/dL (2.5-4.5) 09/21/18 05:45 Albumin/Globulin Ratio 0.8 Ratio (1.1-2.1) L 09/21/18 05:45 Triglycerides 185 mg/dL (0-150) H 09/05/18 07:00 Cholesterol 83 mg/dL (0-200) 09/05/18 07:00 LDL Cholesterol, Calc 37 mg/dL (0-100) 09/05/18 07:00 HDL Cholesterol 9 mg/dL (40-60) L 09/05/18 07:00 Cholesterol/HDL Ratio 9.2 (0.0-5.0) H 09/05/18 07:00 Alpha Fetoprotein 1 ng/mL (0-9) 09/06/18 05:15 Total PSA 0.81 ng/mL (0.13-4.0) 09/06/18 05:15 Vitamin B12 572 pg/mL (193-986) 09/13/18 11:04 Folate 7.7 ng/mL (>8.6) L 09/13/18 11:04 HCG, Quant < 1 mIU/mL 09/06/18 05:15 Specimen Type Clean catch urine 09/17/18 01:00 Urine Color Dark yellow (YELLOW) 09/17/18 01:00 Urine Appearance Clear (CLEAR) 09/17/18 01:00 Urine pH 5.0 (5.0 - 8.0) 09/17/18 01:00 Ur Specific [place] 1.020 (1.000-1.030) 09/17/18 01:00 Urine Protein 3+ (NEGATIVE) 09/17/18 01:00 Urine Glucose (UA) Negative (NEGATIVE) 09/17/18 01:00 Urine Ketones Negative (NEGATIVE) 09/17/18 01:00 Urine Occult Blood 1+ (NEGATIVE) 09/17/18 01:00 Urine Nitrite Negative (NEGATIVE) 09/17/18 01:00 Urine Bilirubin Negative (NEGATIVE) 09/17/18 01:00 Urine Urobilinogen Normal (NORMAL) 09/17/18 01:00 Ur Leukocyte Esterase 1+ (NEGATIVE) 09/17/18 01:00 Urine RBC 0-2 /HPF (NONE SEEN) 09/17/18 01:00 Urine WBC 30-50 /HPF (NONE SEEN) 09/17/18 01:00 Ur Squamous Epith Cells Rare /HPF (NEGATIVE) 09/17/18 01:00 Urine Bacteria Trace /HPF (NEGATIVE) 09/17/18 01:00 Hyaline Casts Rare /LPF (NEGATIVE) 09/17/18 01:00 Urine Mucus Moderate /HPF (NEGATIVE) 09/17/18 01:00 Ur Culture Indicated? Yes/culture set up 09/17/18 01:00 Stool Description Ifob 09/11/18 14:45 Stl Occult Blood (IFOB) Positive (NEGATIVE) A 09/11/18 14:45 Tissue Pathology To follow 09/13/18 09:41 Blood Type AB POSITIVE 09/20/18 21:03 Antibody Screen Negative 09/20/18 21:03 Crossmatch See Detail 09/20/18 21:03 - Plan (1) UTI (urinary tract infection) with pyuria Status: Acute Plan: IV FLUIDS, INVANZ 1G IV DAILY, CONTINUE TO MONITOR (2) Leukocytosis Status: Acute Qualifiers: Leukocytosis type: unspecified Qualified Code(s): D72.829 - Elevated white blood cell count, unspecified Plan: INVANZ 1G IV DAILY, CONTINUE TO MONITOR (3) Generalized weakness Status: Acute (4) Testicular/scrotal pain Status: Acute Plan: CONTINUE TO MONITOR (5) COPD (chronic obstructive pulmonary disease) Status: Chronic Qualifiers: COPD type: unspecified COPD Qualified Code(s): J44.9 - Chronic obstructive pulmonary disease, unspecified (6) Anemia Status: Acute Qualifiers: Anemia type: iron deficiency Iron deficiency anemia type: chronic blood loss Qualified Code(s): D50.0 - Iron deficiency anemia secondary to blood loss (chronic) Plan: MONITOR H&H, CONTINUE TO MONITOR (7) Teressa esophagitis Status: Acute Plan: DIFLUCAN 100MG PO DAILY, NYSTATIN SWISH AND SWALLOW 5ML PO QID, CONTINUE TO MONITOR (8) Altered mental status Status: Acute Qualifiers: Altered mental status type: transient alteration of awareness Qualified Code(s): R40.4 - Transient alteration of awareness Plan: CONTINUE TO MONITOR
== END 2018-09-21 23:20 | disposition expired | DRG 690 ==
LOC: ER 13:21 → MED/SURG 13:21 → OBSVTOIN 18:25 → MED/SURG 19:15
PROVIDERS: ADMIT Internal Medicine; ATTEND Internal Medicine
DX: M25.552 Pain in left hip; N39.0 Urinary tract infection, site not specified; R60.0 Localized edema; M51.16 Intervertebral disc disorders with radiculopathy, lumbar region; K21.9 Gastro-esophageal reflux disease without esophagitis; R29.6 Repeated falls; R42 Dizziness and giddiness; D50.0 Iron deficiency anemia secondary to blood loss (chronic); J44.9 Chronic obstructive pulmonary disease, unspecified; W18.39XA Other fall on same level, initial encounter; Z66 Do not resuscitate; I46.9 Cardiac arrest, cause unspecified; I11.0 Hypertensive heart disease with heart failure; M54.89 Other dorsalgia; R10.84 Generalized abdominal pain; N50.82 Scrotal pain; I87.2 Venous insufficiency (chronic) (peripheral); R94.4 Abnormal results of kidney function studies; I50.9 Heart failure, unspecified; D72.828 Other elevated white blood cell count; N50.89 Other specified disorders of the male genital organs; B96.29 Other Escherichia coli [E. coli] as the cause of diseases classified elsewhere; K29.00 Acute gastritis without bleeding; R26.89 Other abnormalities of gait and mobility; R40.4 Transient alteration of awareness; E78.2 Mixed hyperlipidemia; R78.81 Bacteremia; B37.81 Candidal esophagitis; R53.1 Weakness; Z86.010 Personal history of colon polyps
CPT/HCPCS: 36415; 36430; 70450; 70551; 71010; 71045; 73501; 76870; 80053; 80061; 81001; 82105; 82140; 82270; 82550; 82553; 82607; 82728; 82746; 83540; 83550; 83605; 83735; 84153; 84484; 84702; 85014; 85018; 85025; 86850; 86900; 86901; 86922; 87040; 87077; 87086; 87088; 87186; 88305; 88342; 93005; 94640; 94760; 96365; 96367; 96374; 97110; 97112; 97163; 97166; 97530; 97535; 99231; 99284; A4217; A4222; C9113; P9016; P9047; S0028; S0106; J0696; J0713; J0744; J1200; J1335; J1650; J1940; J2250; J2270; J2271; J2560; J2704; J3411; J3475; J3490; J7030; J7040; J7050; J7620